=== PATIENT | female | born 1995 | race Two or more races ===

== ENCOUNTER 2024-10-10 22:20 | Inpatient (IN) | payer MEDICAID, SELFPAY ==
[2024-10-10 22:22] VITALS: BMI 29.0
[2024-10-10 22:59] VITALS: BP 114/75; PULSE 81; RESP 20; TEMP 36.8; O2SAT 100
--- NOTE | 2024-10-10 23:13 | XR_ITS ---
Examination: CT abdomen and pelvis without contrast. Coronal 3-D reconstructions. Sagittal 2-D reconstructions. Date and time of exam:October 11, 2024 0027 hrs. Comparison December 08, 2019 Indications: Abdominal pain beginning 2 weeks ago CTDI: vol (mGy): 10.1 DLP: (mGycm): 508 Technique: Axial images of the abdomen have been obtained, 3 mm slice thickness Intravenous contrast material has not been administered. Low dose protocols were performed. One or more of the following dose reduction techniques were used; automated exposure control, adjustment of the mA and/or KV according to patient size, use of iterative reconstruction technique. Findings: No focal liver or splenic lesions Mildly hyperdense gallbladder No pancreatic mass No renal or ureteral calculi Aorta normal size No bowel obstruction Tiny fat-containing umbilical hernia Normal appendix No diverticulitis No pelvic mass Contrast in the urinary bladder The osseous structures are intact Impression: No peripancreatic edema Normal appendix No bowel obstruction diverticulitis or free air
--- NOTE | 2024-10-10 23:14 | PD.EDRME ---
Rapid Medical Screening Exam RME Arrival date/time: 10/10/24 22:20 29-year-old female past medical history of Crohn's presents emergency department complaining of diffuse abdominal pain with nausea. Chief Complaint: Abdominal Pain Time Seen by Provider: 10/10/24 22:30 Vital signs: Vital Signs Temperature 98.3 F 10/10/24 22:59 Pulse Rate 81 10/10/24 22:59 Respiratory Rate 20 10/10/24 22:59 Blood Pressure 114/75 10/10/24 22:59 Pulse Oximetry (%) 100 10/10/24 22:59 Oxygen Delivery Method Room Air 10/10/24 22:59 Vital signs reviewed by provider: Yes
[2024-10-10 23:32] LABS: Basophils # (Auto) 0.1 Thou/mm3 (0.0-0.2); Basophils % (Auto) 1 % (0-2.5); Eosinophils # (Auto) 0.2 Thou/mm3 (0.0-0.5); Eosinophils % (Auto) 2 % (0-10); Hematocrit 36.6 % (36.0-46.0); Hemoglobin 12.8 g/dL (12.0-16.0); Immature Granulocytes % (Auto) 0 % (0-0); Immature Granulocytes Auto 0.02 Thou/mm3 (0.00-0.00); Lymphocytes # (Auto) 1.3 Thou/mm3 (1.0-4.8); Lymphocytes % (Auto) 15 % (10-50); Mean Corpuscular Volume 86 fL (80-100); Monocytes # (Auto) 0.8 Thou/mm3 (0.0-0.8); Monocytes % (Auto) 9 % (0-12); Neutrophils # (Auto) 6.4 Thou/mm3 (1.8-7.7); Neutrophils % (Auto) 73 % (37-80); Nucleated Red Blood Cell % 0 /100 WBC (0); Platelet Count 189 Thou/mm3 (140-440); RDW Standard Deviation 38.5 fL (36.4-46.3); Red Blood Count 4.26 Miln/mm3 (4.00-5.20); White Blood Count 8.8 Thou/mm3 (3.6-11.0)
[2024-10-10] MEDS: ONDANSETRON ODT 4 MG TABRAP PO (23:40)
[2024-10-10] MEDS: KETOROLAC INJ 60 MG/2 ML VIAL 30 MG IM (23:41)
[2024-10-10 23:52] LABS: Collection Type, Urine Clean Catch
[2024-10-10 23:55] LABS: HCG,Qualitative Serum Negative
[2024-10-10 23:58] LABS: Alanine Aminotransferase 14 U/L (10-49); Albumin, Serum 4.6 gm/dL (3.5-5.0); Albumin/Globulin Ratio 1.6 (1.2-2.2); Alkaline Phosphatase 63 U/L (46-116); Anion Gap 9 (7-16); Aspartate Amino Transferase 16 U/L (0-34); BUN/Creatinine Ratio 16 Ratio (12-20); Bilirubin,Total 0.3 mg/dL (0.3-1.2); Blood Urea Nitrogen 13 mg/dL (9-23); Calcium 9.9 mg/dL (8.3-10.6); Calcium (Corrected) 9.9 mg/dL (8.5-10.1); Carbon Dioxide 25.6 mMol/L (20.0-31.0); Chloride 105 mMol/L (98-107); Creatinine (Component) 0.8 mg/dL (0.6-1.3); Globulin 2.8 gm/dL (2.3-3.5); Glucose 103 mg/dL (74-106); Osmolality,Calculated 279 (275-295); Potassium 4.1 mMol/L (3.4-5.1); Sodium 140 mMol/L (136-145); Total Protein 7.4 gm/dL (5.7-8.2); eGFR > 60 See Note
[2024-10-11] VITALS (9 sets, daily range): BP systolic 107–128; BP diastolic 59–82; PULSE 72–103; RESP 15–100; TEMP 36.3–36.7; O2SAT 97–100; BMI 30.4
[2024-10-11 00:04] LABS: Bilirubin,Urine Negative (Negative); Blood,Urine Trace (Negative); Clarity,Urine Clear (Clear/Hazy); Color,Urine Colorless (Lt Yel-Yel); Culture Indicated,Urine Not Indicated; Glucose, Urine Negative (Negative); Ketones,Urine Negative (Negative); Leukocyte Esterase,Urine Negative (Negative); Nitrite,Urine Negative (Negative); PH,Urine 5.5 (5.0-7.0); Protein,Urine Negative (Neg - Trace); RBC,Urine < 1 /hpf (0-3); Squamous Epithelial Cell,Urine < 1 /hpf (0-5); Urobilinogen,Urine Negative mg/dL (0.0-1.0); WBC,Urine < 1 /hpf (0-5)
[2024-10-11 00:04] LABS: Lipase 2550 U/L (12-53)
[2024-10-11 00:27] LABS: Amphetamine/Methamp Scrn,U Negative (Negative); Barbiturate Screen,Urine Negative (Negative); Benzodiazepines Screen,Urine Negative (Negative); Benzoylecgonine Screen, Ur Negative (Negative); Fentanyl Screen,Urine Negative (Negative); Opiate Screen,Urine Negative (Negative); THC Screen,Urine Negative (Negative)
[2024-10-11] MEDS: SODIUM CHLORIDE 0.9% 1000 ML 1,000 ML 999 ML IV (00:33)
--- NOTE | 2024-10-11 01:43 | PRELIM_ITS ---
CT scan of the abdomen and pelvis without intravenous contrast (axial sections with sagittal and coronal and 3D reformats) October 11, 2024 at 0047 hours Clinical History: Diffuse abdominal pain. Comparison: None. Findings: Dependent hyperdensity is identified within the gallbladder, which may represent sludge. Contrast is seen in the kidneys, ureters and urinary bladder, likely from a prior contrast study. Note is made of Mariangel's lobe of the liver. The pancreas, spleen and adrenals are unremarkable on this noncontrast study. No evidence of bowel obstruction. The appendix is within normal limits (images [id number]). A moderate amount of fecal material is present in the colon. There is no mesenteric or retroperitoneal adenopathy. The urinary bladder is unremarkable. The uterus and adnexa are unremarkable. There is no free fluid or free air. The aorta and inferior vena cava are normal in caliber. The osseous structures are unremarkable. The lung bases are clear. Please note that evaluation of soft tissue/vascular structures and bowel loops is limited due to absence of IV and oral contrast. Impression: 1. No evidence of acute pancreatitis. 2. Possible gallbladder sludge. Suggest further evaluation with sonography, if clinically indicated. 3. Moderate amount of fecal material in the colon, compatible with constipation. 4. No evidence of bowel obstruction. 5. Other findings as described above. Suggest clinical correlation and follow up accordingly. Report Electronically Signed By: Scotty Layne 10/11/2024 1:42:15 AM [EST]
--- NOTE | 2024-10-11 02:25 | EKG_ITS ---
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
--- NOTE | 2024-10-11 02:25 | PD.EDABDPN ---
ED Abdominal Pain RME/HPI General Chief Complaint: Abdominal Pain Stated complaint: UPPER ABDOMINAL PAIN Time seen by provider: 10/10/24 22:30 Arrival date/time: 10/10/24 22:20 29-year-old female past medical history of Crohn's presents emergency department complaining of diffuse abdominal pain with nausea. Patient reports pain 7 out of 10. Patient reports pain has been ongoing for 2 weeks. Patient reports is occasional drinker with last alcohol intake on Thursday reports it was 1 beer. Patient denies any fever, chills, or any other associated symptom. Source: patient Mode of arrival: ambulatory Limitations: no limitations RME / HPI RME / HPI narrative: 10/10/24 22:20 29-year-old female past medical history of Crohn's presents emergency department complaining of diffuse abdominal pain with nausea. Related Data Home Medications ?Medication ?Instructions ?Recorded ?Confirmed vit no.95-ferrous 1 tab PO QDAY 12/13/18 09/12/22 fumarate 28 mg-folic acid 800 mcg tablet () Previous Rx's ?Medication ?Instructions ?Recorded ibuprofen 600 mg tablet 600 mg PO Q8H PRN pain #14 tabs 02/06/24 Allergies Allergy/AdvReac Type Severity Reaction Status Date / Time etonogestrel (From Nexplanon) Allergy Headache Verified 10/10/24 22:21 latex Allergy Verified 10/10/24 22:21 shrimp Allergy Verified 10/10/24 22:21 Review of Systems Review of Systems Systems Reviewed: All systems reviewed, normal except as documented Constitutional Constitutional: Denies body ache(s), Denies chills and Denies fever(s) Eyes Eyes: Denies change in vision ENT Ears, Nose, Mouth, and Throat: Denies disequilibrium, Denies dizziness, Denies sore throat and Denies vertigo Cardiovascular Cardiovascular: Denies chest pain and Denies dyspnea Respiratory Respiratory: Denies chest congestion, Denies cough and Denies dyspnea Gastrointestinal Gastrointestinal: Reports abdominal pain, Reports nausea and Denies vomiting Genitourinary Genitourinary: Denies abnormal vaginal bleeding Musculoskeletal Musculoskeletal: Denies abnormal gait and Denies arthralgias Integumentary/Breasts Skin/Breast: Denies erythema, Denies rash and Denies wounds Neurologic Neurologic: Denies abnormal gait, Denies disequilibrium, Denies dizziness and Denies vertigo Past Medical History Past Medical History NEUROLOGIC: Positive Neurological Disorders and Migraine CARDIAC: Positive Cardiac Disorders and Cardiac Arrhythmia; Negative Congestive Heart Failure RESPIRATORY: Negative Chronic Obstructive Pulmonary Disease (COPD) GASTROINTESTINAL: Positive Gastrointestinal Disorders, Irritable Bowel, Crohn's Disease and Obesity; Negative Hepatitis or Colorectal Cancer GENITOURINARY: Positive Genitourinary Disorders; Negative Renal Disease or Prostate Cancer REPRODUCTIVE: Positive Previous Pregnancies; Negative Breast Cancer or Testicular Cancer MUSCULOSKELETAL: Negative Musculoskeletal Disorders or Bone Cancer ENDOCRINE: Negative Endocrine Disorders, Diabetes Mellitus Type 1 or Diabetes Mellitus Type 2 HEMATOLOGIC: Positive Blood Disorders and Anemia PSYCHO/SOCIAL: Positive Anxiety and Depression OTHER HISTORY: Negative Hospitalization, Autoimmune Disease, Down Syndrome, Developmental Delay, Shingles, Falls, Blood Transfusions, Blood Transfusion Reaction, Anesthesia Reactions, Organ Transplant, Chemotherapy, Radiation Therapy, Hyperbaric Therapy, MRSA, VRSA, Vancomycin-Resistant Enterococci, Human Immunodeficiency Virus (HIV), Chicken Pox, Measles, Mumps, Rubella (French Measles), Pertussis, Clostridium Difficile, Cancer, Breast Cancer, Cervical Cancer, Colorectal Cancer, Lung Cancer, Ovarian Cancer, Prostate Cancer or Testicular Cancer Family History FAMILY HISTORY: Negative Family Psychiatric Problems, Family Respiratory Disorders, Family Cardiac Disorders, Family Gastrointestinal Problems, Family Cancer, Family Surgery or Family Anesthesia Reaction Surgical History SURGICAL: Negative Abdominal Surgery, Nephrectomy, Joint Replacement, Section or Organ Transplant Social History SMOKING STATUS: Never smoker SECOND HAND EXPOSURE: No SUBSTANCE USE: does not use ED Exam General Limitations: Present no limitations General appearance: Present alert and in no apparent distress Head Head exam: Present atraumatic Eye Eye exam: Present normal appearance, PERRL and EOMI ENT ENT exam: Present normal exam, normal oropharynx and mucous membranes moist Neck Neck exam: Present normal inspection, full ROM and trachea midline Chest Chest inspection: Present normal inspection and symmetric chest wall rise Respiratory Respiratory exam: Present normal lung sounds bilaterally Cardiovascular Cardiovascular exam: Present regular rate, normal rhythm and normal heart sounds Abdominal Exam Abdominal exam: Present soft, tenderness and normal bowel sounds; Absent Benites's sign Abdominal tenderness: Present LUQ Extremities Exam Extremities exam: Present normal inspection and full ROM Back Exam Back exam: Present normal inspection and full ROM Neurological Exam Neurological exam: Present alert, oriented X3 and CN II-XII intact Psychiatric Psychiatric exam: Present normal affect and normal mood Skin Skin exam: Present warm, dry, intact and normal color Course Quality Measures none Orders Category Date Time Status Admit to Inpatient Status Routine Admission 02/25/25 02:16 Active Patient Condition Routine Admission 10/11/24 02:15 Ordered Activity as Tolerated Routine Care 10/11/24 02:17 Ordered Aspiration precautions NOW Care 10/11/24 02:17 Active Continuous Pulse Oximetry NOW Care 10/11/24 02:15 Active Insert IV NOW Care 10/11/24 00:08 Active Intake and Output Routine Care 10/11/24 02:16 Ordered Miscellaneous Nursing Order NOW Care 10/11/24 02:15 Active NPO NOW Care 10/11/24 02:17 Active Notify provider NEEDED Care 10/11/24 02:15 Active Diet NPO (NOW) Diet 10/11/24 02:[address] abdomen pelvis wo con Stat Exams 10/10/24 23:13 Taken CBC Stat Lab 10/10/24 23:20 Completed CMP [Comprehensive Metabolic Panel] Stat Lab 10/10/24 23:20 Completed Drug Screen,Urine Stat Lab 10/10/24 23:44 Completed HCG,Qualitative Serum Stat Lab 10/10/24 23:20 Completed Lipase Stat Lab 10/10/24 23:20 Completed Urinalysis, C/S if Indicated Stat Lab 10/10/24 23:44 Completed Ketorolac Inj [Toradol Inj] Med 10/10/24 23:13 Discontinued 30 mg IM X1 ONE Ondansetron Odt [Zofran Odt] Med 10/10/24 23:13 Discontinued 4 mg PO X1 ONE Ringers Lactated 1000 ml [Lactated Ringers] 1,000 ml Med 10/11/24 02:15 Discontinued IV 75 mls/hr Sodium Chloride 0.9% 1000 ml [Ns] 1,000 ml Med 10/11/24 00:08 Discontinued IV 999 mls/hr Code Status Routine Oth 10/11/24 02:15 Ordered Oxygen Delivery PRN RT 10/11/24 02:15 Active Vital Signs Vital signs: Vital Signs Temperature 98.3 F 10/10/24 22:59 Pulse Rate 81 10/10/24 22:59 Respiratory Rate 20 10/10/24 22:59 Blood Pressure 114/75 10/10/24 22:59 Pulse Oximetry (%) 100 10/10/24 22:59 Oxygen Delivery Method Room Air 10/10/24 22:59 100% room air within normal limits Abdominal Pain MDM MDM Narrative MDM Narrative:: 29-year-old female past medical history of Crohn's presents emergency department complaining of diffuse abdominal pain with nausea. Patient reports pain 7 out of 10. Patient reports pain has been ongoing for 2 weeks. Patient reports is occasional drinker with last alcohol intake on Thursday reports it was 1 beer. Patient denies any fever, chills, or any other associated symptom. CBC unremarkable for any leukocytosis. CMP unremarkable for other than elevated lipase 2550. Urinalysis was unremarkable. CT abdomen pelvis without impression possible gallbladder sludge with moderate amount of fecal material in the colon no evidence of bowel obstruction. Dr Moreno on-call hospitalist consulted for admission due to acute pancreatitis and agrees to admit patient. Patient stable at time of admission. Patient data External records reviewed:: [facility] previous records Clinical information provided by:: patient Social determinants that could affect healthcare access:: none Patient has the following chronic illnesses:: See chart How is presenting disease/condition affected by chronic disease/condition?: uneffected by Evaluation data The following diagnostics were reviewed and interpreted by me:: lab results and radiology exam(s) Lab and/or radiology exams considered but not ordered:: Ordered Interpretation Summary: Interpreted by me Medications / Prescriptions Medications or Prescriptions considered but not ordered:: Ordered Medication administrations:: Medication Administration History Acetaminophen (Acetaminophen 325 Mg Tablet) 650 mg PO Q6H PRN PRN Reason: Mild Pain (1-3) & Fever >101.5 Stop: 11/10/24 02:17 Hydrocodone Bitart/Acetaminophen (Hydrocodone/Apap 10/325 Tab) 1 tab PO Q4H PRN PRN Reason: PAIN SCALE 4-6 (Moderate Stop: 10/16/24 02:22 Heparin Sodium (Porcine) (Heparin Sod Inj 5000 Unit/Ml Vial) 5,000 unit SC BID KEDAR Stop: 10/25/24 08:59 Hydromorphone HCl (Hydromorphone Inj 2 Mg/Ml Vial) 0.5 mg IVP Q4H PRN PRN Reason: PAIN SCALE 7-10 (Severe Stop: 10/16/24 02:22 Lactated Ringer's (Lactated Ringers) 1,000 mls @ 150 mls/hr IV .Q6H40M ONE Stop: 10/11/24 09:18 Last Admin: 10/11/24 02:43 Dose: 150 mls/hr Documented By: WO Ondansetron HCl (Ondansetron Inj 2 Mg/Ml Inj 2 Ml) 4 mg IV Q6H PRN; Protocol PRN Reason: NAUSEA OR VOMITING Stop: 11/10/24 02:22 Pantoprazole Sodium (Pantoprazole Inj 40 Mg Vial) 40 mg IVP QDAY [facility] Stop: 11/10/24 08:59 Discontinued Medications Sodium Chloride (Ns) 1,000 mls @ 999 mls/hr IV .Q1H1M ONE Stop: 10/11/24 01:08 Last Infusion: 10/11/24 02:14 Dose: Infused Documented By: Admin: 10/11/24 00:33 Dose: 999 mls/hr Documented By: REFUGIO Lactated Ringer's (Lactated Ringers) 1,000 mls @ 75 mls/hr IV .[id number] [facility] Stop: 10/11/24 15:34 Last Admin: 10/11/24 02:37 Dose: Not Given Documented By: ODALYS Non-Admin Reason: Discontinued Lactated Ringer's (Lactated Ringers) 1,000 mls @ 100 mls/hr IV .Q10H [facility] Stop: 10/11/24 12:28 Last Admin: 10/11/24 02:45 Dose: Not Given Documented By: REFUGIO Non-Admin Reason: Discontinued Ketorolac Tromethamine (Ketorolac Inj 60 Mg/2 Ml Vial) 30 mg IM X1 ONE Stop: 10/10/24 23:14 Last Admin: 10/10/24 23:41 Dose: 30 mg Documented By: ANGELO Morphine Sulfate (Morphine Sulf Inj 10 Mg/Ml Vial) 2 mg IVP X1 ONE Stop: 10/11/24 02:25 Last Admin: 10/11/24 02:29 Dose: 2 mg Documented By: REFUGIO Ondansetron HCl (Ondansetron Odt 4 Mg Tabrap) 4 mg PO X1 ONE; Protocol Stop: 10/10/24 23:14 Last Admin: 10/10/24 23:40 Dose: 4 mg Documented By: ANGELO Given Consultations Consultation(s) initiated? (list below): Yes Consultation #1 (Physician, Specialty, Details): Dr. Moreno Diagnosis Differential diagnosis abdominal pain: abdominal pain, acute appendicitis, calculus of kidney, constipation, diverticulitis, endometriosis, gastroenteritis, pancreatitis and small bowel obstruction Most likely diagnosis given after review of the tests above:: Acute pancreatitis Admission Indicated Admission indicated?: indicated Admission Request Was there a request for admission?: Yes Admission Attestation Admission request attestation: Discussed case with [] from Hospitalist service regarding admission. Discussed patients ED course, exam findings, labs, and radiology results. The Hospitalist [agrees,declines] to accept the patient for admission. Disposition Plan Disposition Plan: Admit Discharge Plan Plan Patient Disposition: Admit Acute Care w/in Hospital Disposition Comment: Stable Problem List Clinical Impression: Acute pancreatitis PA/[employer] Supervising Physician BOGDAN/WILLIAN Supervising Physician: Dr. Sawyer
[2024-10-11] MEDS: MORPHINE SULF INJ 10 MG/ML VIAL 2 MG IVP (02:29)
--- NOTE | 2024-10-11 02:31 | XR_ITS ---
Examination: Abdomen sonogram, Limited Date and time of exam: October 11, 2024 0313 hrs. Indications: Epigastric pain beginning 3 hours ago Technique: Real-time haq scale transabdominal sonographic images of the upper abdomen obtained. Findings: Normal gallbladder Normal common bile duct 0.4 cm Pancreatic head 2.6 cm Liver 17.5 cm smooth contour no focal liver lesions Normal hepatopedal portal venous flow Patent IVC Impression: Normal gallbladder Normal common bile duct Mild hepatomegaly no focal liver lesions
--- NOTE | 2024-10-11 02:36 | PD.RESHP ---
Documentation for date of: 10/11/24 HPI History of Present Illness Chief complaint: Abdominal pain History of present illness: Ms. Norris is a 29-year-old female with past medical history of Crohn's disease and hemochromatosis who presented to [facility] emergency department from home on 10/11/2024 with a chief complaint of abdominal pain. Patient complains of left-sided abdominal pain radiating to the back which started about 2 weeks ago, has been worsening since, associated with nausea and chills, reports pain is currently 8/10 in intensity, reports is radiating to left side of lower chest at times. Patient also complains of blood in stool, attributed to Crohn's which was diagnosed in 2020, reports following GI at [facility] for management, reports using dicyclomine as needed for Crohn's and recently had a CT scan done for which she is pending appointment for discussion of results. Patient also complains of blood in urine and is following urologist and complains of significantly increased bleeding during menstruation and is following [employer] outpatient. Patient denies any alcohol use, denies starting any new medications recently. Patient otherwise denies any shortness of breath, fever and headache. ED Course: ED Vitals: On presentation BP 114/75, pulse 81, respiratory rate 20, temp 98.3, O2 sat 100 on room air ED Labs: ED labs significant for lipase 2550 otherwise labs unremarkable ED Imaging:CT abdomen pelvis preliminary report in emergency department shows no evidence of acute pancreatitis, possible gallbladder sludge, moderate amount of fecal matter in colon compatible with constipation ED Treatment: Patient was given 1 L NS bolus in ED, Zofran 4 mg p.o. x 1, Toradol 30 mg IM x 1 and morphine 2 mg IVP x 1 in ED Review of Systems Review of Systems Narrative Review of Systems: ROS: -CONSTITUTIONAL: Denies weight loss, fever and positive for chills. -HEENT: Denies changes in vision and hearing. -RESPIRATORY: Denies SOB and cough. -CV: Denies palpitations and Chest Pain. -GI: Positive for abdominal pain, nausea, denies vomiting,constipation and diarrhea. -: Denies dysuria and urinary frequency. -MSK: Denies myalgia and joint pain. -SKIN: Denies rash and pruritus. -NEUROLOGICAL: Denies headache and syncope. -PSYCHIATRIC: Denies recent changes in mood. Denies anxiety and depression. Past Medical History Past Medical History Comments PMH COMMENT: PMH: Positive for Crohn's disease and hemochromatosis PSHx: Colonoscopy about 6 months ago Allergies: Etonogestrel, latex, shrimp Social history: -Smoking: Denies -Alcohol Use: Occasional alcohol use, reports drinking about 1-2 beers in a month -Illicit Drug Use: Denies Family History: Positive family history for diabetes in both parents Exam Vital Signs Temp Pulse Resp BP Pulse Ox O2 Del Method 98.0 F 73 15 128/75 97 Room Air 10/11/24 00:21 10/11/24 00:21 10/11/24 00:21 10/11/24 00:21 10/11/24 00:21 10/11/24 00:21 Narrative Exam Physical Exam General: Awake and in no acute distress. Conversational and non-toxic appearing. HEENT: Normocephalic, atraumatic, mucous membranes moist. Heart: Regular rate and rhythm, no murmurs. Lungs: Clear to auscultation with no wheezing or crackles. Abdomen: Soft, nondistended, positive for tenderness in left upper and left lower quadrant, minimal tenderness in right upper quadrant, positive bowel sounds. Neurologic: Alert and oriented x3, no gross neurological deficit, and patient able to move all 4 extremities. Extremities: No edema. Skin: No rash or ecchymoses. Results: Labs 10/10/24 23:20 10/10/24 23:20 Labs: Short CBC 10/10/24 Range/Units 23:20 WBC 8.8 (3.6-11.0) Thou/mm3 Hgb 12.8 (12.0-16.0) g/dL Hct 36.6 (36.0-46.0) % Plt Count 189 (140-440) Thou/mm3 BMP 10/10/24 23:20 Sodium 140 Potassium 4.1 Chloride 105 Carbon Dioxide 25.6 BUN 13 Creatinine 0.8 Glucose 103 Calcium 9.9 Liver Function 10/10/24 Range/Units 23:20 Total Bilirubin 0.3 (0.3-1.2) mg/dL AST 16 (0-34) U/L ALT 14 (10-49) U/L Alkaline Phosphatase 63 (46-116) U/L Albumin 4.6 (3.5-5.0) gm/dL Urine 10/10/24 Range/Units 23:44 Urine Color Colorless A (Lt Yel-Yel) Urine Clarity Clear (Clear/Hazy) Urine pH 5.5 (5.0-7.0) Ur Specific [place] 1.010 (1.001-1.035) Urine Protein Negative (Neg - Trace) Urine Glucose (UA) Negative (Negative) Quality Measures Quality Measures VTE prophylaxis Medications Home Medications and Allergies Home Medications ?Medication ?Instructions ?Recorded ?Confirmed ?Type vit no.95-ferrous 1 tab PO QDAY 12/13/18 09/12/22 History fumarate 28 mg-folic acid 800 mcg tablet () Allergies Allergy/AdvReac Type Severity Reaction Status Date / Time etonogestrel (From Nexplanon) Allergy Headache Verified 10/10/24 22:21 latex Allergy Verified 10/10/24 22:21 shrimp Allergy Verified 10/10/24 22:21 Visit Medications Acetaminophen (Acetaminophen 325 Mg Tablet) 650 mg PO Q6H PRN PRN Reason: Mild Pain (1-3) & Fever >101.5 Stop: 11/10/24 02:17 Hydrocodone Bitart/Acetaminophen (Hydrocodone/Apap 10/325 Tab) 1 tab PO Q4H PRN PRN Reason: PAIN SCALE 4-6 (Moderate Stop: 10/16/24 02:22 Heparin Sodium (Porcine) (Heparin Sod Inj 5000 Unit/Ml Vial) 5,000 unit SC BID [facility] Stop: 10/25/24 08:59 Hydromorphone HCl (Hydromorphone Inj 2 Mg/Ml Vial) 0.5 mg IVP Q4H PRN PRN Reason: PAIN SCALE 7-10 (Severe Stop: 10/16/24 02:22 Lactated Ringer's (Lactated Ringers) 1,000 mls @ 100 mls/hr IV .Q10H [facility] Stop: 10/11/24 12:28 Ondansetron HCl (Ondansetron Inj 2 Mg/Ml Inj 2 Ml) 4 mg IV Q6H PRN; Protocol PRN Reason: NAUSEA OR VOMITING Stop: 11/10/24 02:22 Pantoprazole Sodium (Pantoprazole Inj 40 Mg Vial) 40 mg IVP QDAY [facility] Stop: 11/10/24 08:59 Discontinued Medications Sodium Chloride (Ns) 1,000 mls @ 999 mls/hr IV .Q1H1M ONE Stop: 10/11/24 01:08 Last Infusion: 10/11/24 02:14 Dose: Infused Lactated Ringer's (Lactated Ringers) 1,000 mls @ 75 mls/hr IV .[id number] KEDAR Stop: 10/11/24 15:34 Ketorolac Tromethamine (Ketorolac Inj 60 Mg/2 Ml Vial) 30 mg IM X1 ONE Stop: 10/10/24 23:14 Last Admin: 10/10/24 23:41 Dose: 30 mg Morphine Sulfate (Morphine Sulf Inj 10 Mg/Ml Vial) 2 mg IVP X1 ONE Stop: 10/11/24 02:25 Last Admin: 10/11/24 02:29 Dose: 2 mg Ondansetron HCl (Ondansetron Odt 4 Mg Tabrap) 4 mg PO X1 ONE; Protocol Stop: 10/10/24 23:14 Last Admin: 10/10/24 23:40 Dose: 4 mg Assessment & Plan Plan Assessment and Plan: Summary: Ms. Norris is a 29-year-old female with past medical history of Crohn's disease and hemochromatosis who presented to [facility] emergency department from home on 10/11/2024 with a chief complaint of abdominal pain. Patient admitted for further management of acute pancreatitis. #Acute pancreatitis #Gallbladder sludge #Crohn's disease Patient presented with abdominal pain severe, 8/10 radiating to the back for about 2 weeks, associated with nausea and chills, patient's lipase 2550, CT abdomen pelvis preliminary report in emergency department shows no evidence of acute pancreatitis, possible gallbladder sludge, moderate amount of fecal matter in colon compatible with constipation. Patient reports history of Crohn's disease, reports blood in stool for about 3 weeks, follows [facility] gastroenterology, not on any medications for management of Crohn's currently. Reports last colonoscopy was about 6 months ago. BISAP score 0 less than 1% risk of mortality Plan: -Intravenous Ringer lactate 150 cc/h -Pain management with Tylenol, [place], Dilaudid as needed -Zofran as needed for nausea/vomiting -N.p.o., consider advancing diet later if pain well-controlled -Ordered ultrasound gallbladder -Patient does not seem to have acute flare of Crohn's, will monitor -IV Protonix #Hemochromatosis Patient reports that her genetic marker was positive for hemochromatosis, denies any family history DVT prophylaxis: Heparin every 12 hours GI prophylaxis: IV Protonix Diet: N.p.o. Lines: Peripheral IV Code status: Full code Case discussed with Attending Dr. Moreno. Song Jarrett PGY1 Disclaimer: This note was dictated by speech recognition. Minor errors in cane flume watcher may be present due to voice recognition software. Attending Provider Attestation/Addendum I attest that I was physically present for the evaluation, physical examination, lab and imaging review of the patient with the residents. I discussed the case with the residents and agree with the findings and plans of care as documented above. Patient is a 29 years old female with past medical history of Crohn's disease who presented to the ED with complaint of abdominal pain. Patient has been having abdominal pain along with nausea for last couple weeks, the pain is severe and radiates towards her back. She also has chills but denied any fever. 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 Patient is also having frequent menstrual bleeding and also had urology workup for blood in her urine. She also had tested for hemochromatosis and was told she is positive. In the ED, her vitals are within normal limits except for mild tachycardia. Lab results showed lipase of 2550. CT abdomen/pelvis was done, preliminary report shows possible gallbladder discharge and fecal matter in colon but no evidence of pancreatitis. Calcium levels are within normal limits. Patient is stated that she only drinks 1-2 beers every month and denied any binge drinking recently. We will admit patient for management of acute pancreatitis with IV hydration and analgesics. We will obtain gallbladder ultrasound, lipid panel. We will wait for final reading on CT scan abdomen/pelvis. Plan to start diet once her nausea improves. Lashonda Moreno MD
[2024-10-11] MEDS: RINGERS LACTATED 1000 ML 1,000 ML 150 ML IV (02:43)
--- NOTE | 2024-10-11 05:25 | PRELIM_ITS ---
Gallbladder ultrasound. October 11, 2024 0313 hours Clinical history: Pancreatitis. Correlated with the prior same day CT study. Findings: The visualized liver is normal in echogenicity without mass or ductal dilatation. Gallbladder sludge is noted. No gallbladder wall thickening or pericholecystic fluid is identified. Sonographic Benites sign is negative as per the technologist's note. The common duct is normal in caliber at 4 mm. No free fluid is demonstrated on the submitted images. There visualized pancreas is bulky and demonstrates mild inhomogenous echogenicity. The IVC and main portal vein are patent. Impression: Bulky pancreas with mild inhomogenous echogenicity, mild/early pancreatitis cannot be excluded. Recommend clinical and laboratory correlation. Cholelithiasis without evidence of acute cholecystitis. Report Electronically Signed By: Idalmis Turner 10/11/2024 5:25:31 AM [EST]
[2024-10-11 05:34] LABS: Basophils % (Auto) 1 % (0-2.5); Eosinophils # (Auto) 0.1 Thou/mm3 (0.0-0.5); Eosinophils % (Auto) 2 % (0-10); Hematocrit 33.5 % (36.0-46.0); Hemoglobin 11.6 g/dL (12.0-16.0); Immature Granulocytes % (Auto) 0 % (0-0); Immature Granulocytes Auto 0.01 Thou/mm3 (0.00-0.00); Lymphocytes # (Auto) 1.6 Thou/mm3 (1.0-4.8); Lymphocytes % (Auto) 29 % (10-50); Mean Corpuscular HGB Conc 34.6 g/dl (31.0-37.0); Mean Corpuscular Hemoglobin 30.4 pg (25.0-35.0); Mean Corpuscular Volume 88 fL (80-100); Monocytes # (Auto) 0.6 Thou/mm3 (0.0-0.8); Monocytes % (Auto) 11 % (0-12); Neutrophils # (Auto) 3.2 Thou/mm3 (1.8-7.7); Neutrophils % (Auto) 58 % (37-80); Nucleated Red Blood Cell % 0 /100 WBC (0); Platelet Count 179 Thou/mm3 (140-440); Red Blood Count 3.82 Miln/mm3 (4.00-5.20); White Blood Count 5.6 Thou/mm3 (3.6-11.0)
[2024-10-11 05:53] LABS: Glucose Estimated Average 97 mg/dL (80-131)
[2024-10-11 07:15] LABS: Ferritin 10 ng/mL (7.3-270.7); Iron 51 mcg/dL (50-170); Percent Iron Saturation 18 % (20-55); Total Iron Binding Capacity 272 mcg/dL (250-425); Unsaturated Iron Binding 221 (225-295)
[2024-10-11 07:21] LABS: Alanine Aminotransferase 10 U/L (10-49); Albumin, Serum 3.9 gm/dL (3.5-5.0); Albumin/Globulin Ratio 1.7 (1.2-2.2); Alkaline Phosphatase 48 U/L (46-116); Anion Gap 7 (7-16); Aspartate Amino Transferase 12 U/L (0-34); BUN/Creatinine Ratio 14 Ratio (12-20); Bilirubin,Total 0.5 mg/dL (0.3-1.2); Blood Urea Nitrogen 10 mg/dL (9-23); Calcium 8.8 mg/dL (8.3-10.6); Calcium (Corrected) 8.9 mg/dL (8.5-10.1); Carbon Dioxide 27.3 mMol/L (20.0-31.0); Cardiac Risk Estimate 1.9 RATIO (3.7-5.6); Chloride 107 mMol/L (98-107); Cholesterol 103 mg/dL (132-200); Creatinine (Component) 0.7 mg/dL (0.6-1.3); Estimated Creatinine Clearance 120.7 mL/min (>60); Globulin 2.3 gm/dL (2.3-3.5); Glucose 103 mg/dL (74-106); HDL Cholesterol 53 mg/dL (40-60); LDL Cholesterol,Calculated 40 mg/dL (0-130); Osmolality,Calculated 280 (275-295); Potassium 3.9 mMol/L (3.4-5.1); Sodium 141 mMol/L (136-145); Total Protein 6.2 gm/dL (5.7-8.2); Triglycerides 51 mg/dL (30-150); eGFR > 60 See Note
[2024-10-11] MEDS: RINGERS LACTATED 1000 ML 1,000 ML 999 ML IV (08:03)
[2024-10-11] MEDS: PANTOPRAZOLE INJ 40 MG VIAL IVP (08:08)
[2024-10-11 08:12] LABS: Sed Rate (ESR) 5 mm/hr (0-20)
[2024-10-11 08:13] LABS: Amylase 594 U/L (30-118); C-Reactive Protein < 0.4 mg/dL (0.0-0.9)
[2024-10-11] MEDS: RINGERS LACTATED 1000 ML 1,000 ML 250 ML IV ×4 (08:45→20:29)
[2024-10-11] MEDS: HYDROcodone/APAP 10/325 TAB PO ×2 (10:28→17:32)
--- NOTE | 2024-10-11 15:11 | ESPR_ITS ---
<Statement entered by Paul Scott MD - 10/11/24 20:08> Senior Resident Attestation: I supervised/discussed management plan with pharmacy intern physician Dr. Leyva, and was involved in the care of this patient. I personally saw and examined the patient and discussed the assessment and plan with the entire medicine team, including my attending. I agree with the assessment and plan as documented. Patient's care was discussed with attending physician, Dr. Hamilton. Paul Scott MD PGY-2. Documentation for date of: 10/11/24 Subjective Subjective Interval history: Patient examined at bedside today. No acute overnight events. Patient reports that she has never had an IBD flareup or has been hospitalized for it. She says she took mesalamine a couple years ago but stopped it due to constipation and does not take any medicines for IBD at this point. She says she has a diagnosis of Crohn's, but has been told she has had ulcerative colitis before. Says colonoscopy 6 months ago was normal. Says she works in the [employer]. She also says that she had an appointment with her GI in [place] at [facility] for CT scan. She says she can go to the ED there due to not being in severe pain. Says she only takes medicine when she is in severe pain with her IBD which includes dicyclomine. Does not take steroids for IBD either. No other complaints at this time Exam Vital Signs Temp Pulse Resp BP Pulse Ox O2 Del Method 97.6 F 87 17 115/78 100 Room Air 10/11/24 12:00 10/11/24 12:00 10/11/24 12:00 10/11/24 12:00 10/11/24 12:10/11/24 12:00 Narrative Exam General: AAOx3, NAD, pleasant appearing, cooperative HEENT: Moist mucous membranes, conjunctiva clear, EOMI, PERRLA, Cardiovascular: S1, S2, radial pulses +2 bilat, RRR Pulmonary: CTAB bilat no cough, no wheezing GI: Some tenderness to palpitation in both lower quadrants, no guarding, rigidity, rebound tenderness or distension Extremities: No presence of trace or pitting edema in lower extremities bilaterally, dorsalis pedis pulses +2 bilaterally Neuro: AAOx3, no focal motor or sensory deficits in the UE or LE bilat Psych: Good judgement, thought and behavior Objective Labs 10/13/24 05:23 10/13/24 05:23 Labs: Laboratory Results - last 24 hr 10/10/24 10/10/24 10/11/24 23:20 23:44 04:36 WBC 8.8 5.6 RBC 4.26 3.82 L Hgb 12.8 11.6 L Hct 36.6 33.5 L MCV 86 88 MCH 30.0 30.4 MCHC 35.0 34.6 RDW Std Deviation 38.5 39.0 Plt Count 189 179 Neut % (Auto) 73 58 Lymph % (Auto) 15 29 [place] % (Auto) 9 11 Eos % (Auto) 2 2 Baso % (Auto) 1 1 Neut # (Auto) 6.4 3.2 Lymph # (Auto) 1.3 1.6 [place] # (Auto) 0.8 0.6 Eos # (Auto) 0.2 0.1 Baso # (Auto) 0.1 0.0 Immature Gran # (Auto) 0.02 H 0.01 H Absolute Nucleated RBC 0.00 0.00 Immature Gran % 0 0 Nucleated RBC % 0 0 ESR 5 Sodium 140 141 Potassium 4.1 3.9 Chloride 105 107 Carbon Dioxide 25.6 27.3 Anion Gap 9 7 BUN 13 10 Creatinine 0.8 0.7 Estim Creat Clear Calc 103.0 120.7 eGFR > 60 > 60 BUN/Creatinine Ratio 16 14 Glucose [address] Glu mg/dL 97 Hemoglobin A1c 5.0 Calculated Osmolality 279 280 Calcium 9.9 8.8 Corrected Calcium 9.9 8.9 Magnesium 2.0 Iron 51 TIBC 272 Iron Saturation 18 L Unsat Iron Binding 221 L Ferritin 10 Total Bilirubin 0.3 0.5 AST 16 12 ALT 14 10 Alkaline Phosphatase 63 48 D C-Reactive Prot, Quant < 0.4 Total Protein 7.4 6.2 Albumin 4.6 3.9 D Globulin 2.8 2.3 Albumin/Globulin Ratio 1.6 1.7 Triglycerides 51 Cholesterol 103 L LDL Cholesterol, Calc 40 HDL Cholesterol 53 Cholesterol/HDL Ratio 1.9 L Amylase 594 H* Lipase 2550 H* HCG, Qual Negative Ur Collection Type Clean Catch Urine Color Colorless A Urine Clarity Clear Urine pH 5.5 Ur Specific [place] 1.010 Urine Protein Negative Urine Glucose (UA) Negative Urine Ketones Negative Urine Blood Trace Urine Nitrite Negative Urine Bilirubin Negative Urine Urobilinogen (Auto) Negative Ur Leukocyte Esterase Negative Urine RBC < 1 Urine WBC < 1 Ur Squamous Epith Cells < 1 Urine Bacteria None Ur Culture Indicated? Not Indicated Urine Opiates Screen Negative Urine Fentanyl Screen Negative Ur Barbiturates Screen Negative U Amphetamin/Meth Scrn Negative U Benzodiazepines Scrn Negative U Cocaine Metab Screen Negative U Marijuana (THC) Screen Negative Quality Measures Quality Measures VTE prophylaxis Assessment & Plan Assessment Current Active Medications: Generic Name Dose Route Start Last Admin Trade Name Freq PRN Reason Stop Dose Admin Acetaminophen 650 mg 10/11/24 07:54 Acetaminophen 325 Mg Tablet PO 11/10/24 02:17 Q6H PRN Mild Pain (1-3) & Fever >99 Hydrocodone Bitart/Acetaminophen 1 tab 10/11/24 02:23 10/11/24 10:28 Hydrocodone/Apap 10/325 Tab PO 10/16/24 02:22 1 tab Q4H PRN Administration PAIN SCALE 4-6 (Moderate Hydromorphone HCl 0.5 mg 10/11/24 02:23 Hydromorphone Inj 2 Mg/Ml Vial IVP 10/16/24 02:22 Q4H PRN PAIN SCALE 7-10 (Severe Lactated Ringer's 1,000 mls @ 250 mls/hr 10/11/24 07:53 10/11/24 14:06 Lactated Ringers IV 11/10/24 07:52 250 mls/hr .Q4H KEDAR Administration Ondansetron HCl 4 mg 10/11/24 02:23 Ondansetron Inj 2 Mg/Ml Inj 2 Ml IV 11/10/24 02:22 Q6H PRN NAUSEA OR VOMITING Protocol Pantoprazole Sodium 40 mg 10/11/24 09:00 10/11/24 08:08 Pantoprazole Inj 40 Mg Vial IVP 11/10/24 08:59 40 mg QDAY KEDAR Administration Plan Assessment: Ms. Norris is a 29-year-old female with past medical history of Crohn's disease who presented to [facility] emergency department from home on 10/11/2024 with a chief complaint of abdominal pain. Patient admitted for further management of acute pancreatitis. #Acute pancreatitis # ? Crohn's disease flare up Patient is not have a white count currently at 5.6, hematocrit [address] findings of pancreatitis, however lipase is over 2500 in addition to classic abdominal pain radiating to the back which would give diagnosis of pancreatitis at this time Patient denies being hospitalized before for IBD, however this may be a cause of her pancreatitis at this time She denies having any heavy alcohol episodes, has no history of gallstones, and her triglycerides are 50 This could be a Crohn's flareup, however will treat for pancreatitis and follow- up GI recs BISAP score 0 less than 1% risk of mortality Plan: -LR 250 cc/h -Pain management with Tylenol, [place], Dilaudid as needed -Zofran as needed for nausea/vomiting -Clear liquid -Follow-up proteinase 3, DALIA, myeloperoxidase -IV Protonix ?GI consulted, appreciate recs #? Hemochromatosis, gene carrier This is been reported, however ferritin within normal limits #Health Maintenance Disposition: MedSurg DVT prophylaxis: Heparin every 12 H GI prophylaxis: Protonix Diet: Clear liquid CODE STATUS: Full code Patient seen and care discussed with my senior resident, Dr. Mckenzie, and my attending physician, Dr. Joy Ford, PGY-1 Attending Provider Attestation/Addendum I have examined the patient, reviewed labs and imaging findings, discussed the case with the resident(s), and reviewed entered orders. I agree with the plan of care as outlined in this note, with these additional summaries/recommendations: Patient seen at bedside. Patient admitted overnight for acute pancreatitis and likely IBD flare. Patient does meet 2 out of 3 diagnostic criteria for acute pancreatitis with elevated lipase and abdominal pain. I suspect patient's symptoms are more likely related to IBD flare rather than pancreatitis. Lipase/amylase can be elevated in 8 to 20% of patients with inflammatory bowel disease. Nonetheless, because of patient's symptoms we will proceed with pancreatitis treatment with IV fluids, pain management, and bowel rest. Okay to give the patient clear liquid diet as tolerated. We will consult gastroenterology for history of Crohn's disease and likely flare. Patient follows at [facility] but would like to transfer her care to our local bike technician. Appreciate GI Edgardo if steroids should be started at this time or if maintenance therapy for IBD. Continue IV fluids. Repeat hematology and chemistry panel in AM. Patient and updated on the plan and in agreement. All questions answered to satisfaction. Dr. Joy MD
--- NOTE | 2024-10-11 21:26 | ESCONSULT_ITS ---
HPI Data of Consult Requesting Physician: Andrea Hamilton MD Primary Care Provider: Josse Murphy MD Consult Narrative Reason for consult: Pain abdomen elevated amylase lipase History of present illness: 29 years old female presented to hospital with severe abdominal pain and discomfort She does have a history of Crohn's disease being followed at [facility] She also hematuria also follow there In the emergency room she had laboratory workup done which showed a WBC count of 5.6 hemoglobin hematocrit of 11.6 and 33.[address] scan of the abdomen pelvis showed no pending pancreatic edema with peripancreatic inflammation Gallbladder ultrasound was normal Patient does drink she had a beer on Thursday cc:: cc: Andrea Hamilton MD Review of Systems Review of Systems Systems Reviewed: All systems reviewed, normal except as documented Past Medical History Surgical History OTHER SURGICAL HX: As in the history of present illness Meds Home Medications and Allergies Home Medications ?Medication ?Instructions ?Recorded ?Confirmed ?Type vit no.95-ferrous 1 tab PO QDAY 12/13/1809/18 History fumarate 28 mg-folic acid 800 mcg tablet () dicyclomine 10 mg capsule 10 mg PO PRN abdominal pain 10/11/24 History Allergies Allergy/AdvReac Type Severity Reaction Status Date / Time etonogestrel (From Nexplanon) Allergy Headache Verified 10/10/24 22:21 latex Allergy Verified 10/10/24 22:21 shrimp Allergy Verified 10/10/24 22:21 Exam Vital Signs Temp Pulse Resp BP Pulse Ox O2 Del Method 97.4 F 87 17 119/64 100 Room Air 10/11/24 20:00 10/11/24 20:00 10/11/24 20:00 10/11/24 20:00 10/11/24 20:00 10/11/24 20:00 Routine Respiratory Exam Comments: Normal to auscultation Routine Abdominal Exam Comments: Midepigastric tenderness Results Labs 10/11/24 04:36 10/11/24 04:36 Labs: Short CBC 10/10/24 10/11/24 Range/Units 23:20 04:36 WBC 8.8 5.6 (3.6-11.0) Thou/mm3 Hgb 12.8 11.6 L (12.0-16.0) g/dL Hct 36.6 33.5 L (36.0-46.0) % Plt Count 189 179 (140-440) Thou/mm3 BMP 10/10/24 10/11/24 23:20 04:36 Sodium 140 141 Potassium 4.1 3.9 Chloride 105 107 Carbon Dioxide 25.6 27.3 BUN 13 10 Creatinine 0.8 0.7 Glucose 103 103 Calcium 9.9 8.8 Liver Function 10/10/24 10/11/24 Range/Units 23:20 04:36 Total Bilirubin 0.3 0.5 (0.3-1.2) mg/dL AST 16 12 (0-34) U/L ALT 14 10 (10-49) U/L Alkaline Phosphatase 63 48 D (46-116) U/L Albumin 4.6 3.9 D (3.5-5.0) gm/dL Urine 10/10/24 Range/Units 23:44 Urine Color Colorless A (Lt Yel-Yel) Urine Clarity Clear (Clear/Hazy) Urine pH 5.5 (5.0-7.0) Ur Specific [place] 1.010 (1.001-1.035) Urine Protein Negative (Neg - Trace) Urine Glucose (UA) Negative (Negative) Assessment and Plan Additional Assessment & Plan Additional Plan: Acute idiopathic pancreatitis may be related to her underlying Crohn's disease as there is a correlation between Crohn's and pancreatitis As the extraintestinal manifestation of Crohn's disease Surprising she is not on any medication except dicyclomine Suggestions Conservative management with being n.p.o. IV fluids Pain control Recommend CCK HIDA scan with ejection fraction of the gallbladder just to make sure patient has no significant biliary dyskinesia in the setting of acute idiopathic pancreatitis Will follow the patient Thank you very much for the opportunity to participate in the care of this patient
--- NOTE | 2024-10-11 21:31 | XR_ITS ---
Examination: KANADCE, hepatobiliary radioisotope scan Gallbladder ejection fraction study. Date and time of exam: October 12, 2024 0822 hrs. Indications: Severe abdominal pain and discomfort this week elevated lipase Technique: 6.2 mCi of 99M Hepatolite administered. Serial imaging then obtained from immediate through 60 minutes. 1.6 mcg selective catheter Kinevac administered for gallbladder ejection fraction study. Findings: Radioisotope activity within the liver is reasonably homogenous. Gallbladder, common bile duct small bowel activity noted Impression: Gallbladder activity Gallbladder ejection fraction abnormally low 7%, normal range greater than 35%
[2024-10-11] MEDS: ONDANSETRON INJ 2 MG/ML INJ 2 ML 4 MG IV (22:17)
[2024-10-12] VITALS (8 sets, daily range): BP systolic 95–130; BP diastolic 63–84; PULSE 79–91; RESP 16–100; TEMP 36.2–36.7; O2SAT 95–100
[2024-10-12] MEDS: RINGERS LACTATED 1000 ML 1,000 ML 250 ML IV (01:09)
[2024-10-12 05:55] LABS: Basophils % (Auto) 1 % (0-2.5); Eosinophils # (Auto) 0.1 Thou/mm3 (0.0-0.5); Eosinophils % (Auto) 2 % (0-10); Hematocrit 33.1 % (36.0-46.0); Hemoglobin 11.4 g/dL (12.0-16.0); Immature Granulocytes % (Auto) 0 % (0-0); Immature Granulocytes Auto 0.01 Thou/mm3 (0.00-0.00); Lymphocytes # (Auto) 1.3 Thou/mm3 (1.0-4.8); Lymphocytes % (Auto) 23 % (10-50); Mean Corpuscular HGB Conc 34.4 g/dl (31.0-37.0); Mean Corpuscular Hemoglobin 30.4 pg (25.0-35.0); Mean Corpuscular Volume 88 fL (80-100); Monocytes # (Auto) 0.7 Thou/mm3 (0.0-0.8); Monocytes % (Auto) 12 % (0-12); Neutrophils # (Auto) 3.5 Thou/mm3 (1.8-7.7); Neutrophils % (Auto) 62 % (37-80); Nucleated Red Blood Cell % 0 /100 WBC (0); Platelet Count 199 Thou/mm3 (140-440); RDW Standard Deviation 39.4 fL (36.4-46.3); Red Blood Count 3.75 Miln/mm3 (4.00-5.20); White Blood Count 5.6 Thou/mm3 (3.6-11.0)
[2024-10-12 06:15] LABS: Partial Thromboplastin Time 27.7 Seconds (22.0-36.0); Prothrombin Time 11.4 Seconds (9.0-12.2)
[2024-10-12 06:36] LABS: Alanine Aminotransferase 9 U/L (10-49); Albumin, Serum 3.6 gm/dL (3.5-5.0); Albumin/Globulin Ratio 1.1 (1.2-2.2); Alkaline Phosphatase 37 U/L (46-116); Anion Gap 9 (7-16); Aspartate Amino Transferase 16 U/L (0-34); BUN/Creatinine Ratio 7 Ratio (12-20); Bilirubin,Total 0.6 mg/dL (0.3-1.2); Blood Urea Nitrogen 5 mg/dL (9-23); Calcium 9.3 mg/dL (8.3-10.6); Calcium (Corrected) 9.6 mg/dL (8.5-10.1); Carbon Dioxide 26.3 mMol/L (20.0-31.0); Chloride 106 mMol/L (98-107); Creatinine (Component) 0.7 mg/dL (0.6-1.3); Estimated Creatinine Clearance 120.7 mL/min (>60); Globulin 3.2 gm/dL (2.3-3.5); Glucose 91 mg/dL (74-106); Magnesium 1.8 mg/dL (1.6-2.6); Osmolality,Calculated 278 (275-295); Phosphorous 3.8 mg/dL (2.4-5.1); Sodium 141 mMol/L (136-145); Total Protein 6.8 gm/dL (5.7-8.2); eGFR > 60 See Note
[2024-10-12] MEDS: PANTOPRAZOLE INJ 40 MG VIAL IVP (08:02)
--- NOTE | 2024-10-12 10:55 | ESPR_ITS ---
Documentation for date of: 10/12/24 Subjective Subjective Interval history: Patient examined at bedside today. No acute overnight events. Says that her abdominal pain is still there, however she slept okay. She is wondering when she is in a go home. She is also continuing with going with Dr. Mays for outpatient GI. No other complaints at this time. Has not felt nauseous or vomited. Exam Vital Signs Temp Pulse Resp BP Pulse Ox O2 Del Method 97.8 F 83 19 124/63 100 Room Air 10/12/24 08:00 10/12/24 08:00 10/12/24 08:00 10/12/24 08:00 10/12/24 08:00 10/12/24 08:00 Narrative Exam General: AAOx3, NAD, pleasant appearing, cooperative HEENT: Moist mucous membranes, conjunctiva clear, EOMI, PERRLA, Cardiovascular: S1, S2, radial pulses +2 bilat, RRR Pulmonary: CTAB bilat no cough, no wheezing GI: Some tenderness to palpitation in both lower quadrants, no guarding, rigidity, rebound tenderness or distension Extremities: No presence of trace or pitting edema in lower extremities bilaterally, dorsalis pedis pulses +2 bilaterally Neuro: AAOx3, no focal motor or sensory deficits in the UE or LE bilat Psych: Good judgement, thought and behavior. Cooperative Objective Labs 10/13/24 05:23 10/13/24 05:23 Labs: Laboratory Results - last 24 hr 10/12/24 05:21 WBC 5.6 RBC 3.75 L Hgb 11.4 L Hct 33.1 L MCV 88 MCH 30.4 MCHC 34.4 RDW Std Deviation 39.4 Plt Count 199 Neut % (Auto) 62 Lymph % (Auto) 23 [place] % (Auto) 12 Eos % (Auto) 2 Baso % (Auto) 1 Neut # (Auto) 3.5 Lymph # (Auto) 1.3 [place] # (Auto) 0.7 Eos # (Auto) 0.1 Baso # (Auto) 0.0 Immature Gran # (Auto) 0.01 H Absolute Nucleated RBC 0.00 Immature Gran % 0 Nucleated RBC % 0 PT 11.4 INR 1.0 APTT 27.7 Sodium 141 Potassium 4.0 Chloride 106 Carbon Dioxide 26.3 Anion Gap 9 BUN 5 L Creatinine 0.7 Estim Creat Clear Calc 120.7 eGFR > 60 BUN/Creatinine Ratio 7 L Glucose 91 Calculated Osmolality 278 Calcium 9.3 Corrected Calcium 9.6 Phosphorus 3.8 Magnesium 1.8 Total Bilirubin 0.6 AST 16 ALT 9 L Alkaline Phosphatase 37 L D Total Protein 6.8 Albumin 3.6 Globulin 3.2 Albumin/Globulin Ratio 1.1 L Quality Measures Quality Measures VTE prophylaxis Assessment & Plan Assessment Current Active Medications: Generic Name Dose Route Start Last Admin Trade Name Freq PRN Reason Stop Dose Admin Acetaminophen 650 mg 10/11/24 07:54 Acetaminophen 325 Mg Tablet PO 11/10/24 02:17 Q6H PRN Mild Pain (1-3) & Fever >99 Hydrocodone Bitart/Acetaminophen 1 tab 10/11/24 02:23 10/11/24 17:32 Hydrocodone/Apap 10/325 Tab PO 10/16/24 02:22 1 tab Q4H PRN Administration PAIN SCALE 4-6 (Moderate Hydromorphone HCl 0.5 mg 10/11/24 02:23 Hydromorphone Inj 2 Mg/Ml Vial IVP 10/16/24 02:22 Q4H PRN PAIN SCALE 7-10 (Severe Lactated Ringer's 1,000 mls @ 250 mls/hr 10/11/24 07:53 10/12/24 01:09 Lactated Ringers IV 11/10/24 07:52 250 mls/hr .Q4H KEDAR Administration Lactated Ringer's 500 mls @ 75 mls/hr 10/12/24 08:18 Lactated Ringers IV 10/12/24 14:57 .Q6H40M ONE Iron Sucrose 200 mg 10/12/24 09:00 Iron Sucrose Cplx Inj 20 Mg/Ml Vial 5 Ml IVP 10/16/24 08:59 QDAY KEDAR Ondansetron HCl 4 mg 10/11/24 02:23 10/11/24 22:17 Ondansetron Inj 2 Mg/Ml Inj 2 Ml IV 11/10/24 02:22 4 mg Q6H PRN Administration NAUSEA OR VOMITING Protocol Pantoprazole Sodium 40 mg 10/11/24 09:00 10/12/24 08:02 Pantoprazole Inj 40 Mg Vial IVP 11/10/24 08:59 40 mg QDAY KEDAR Administration Plan Assessment: Ms. Norris is a 29-year-old female with past medical history of Crohn's disease who presented to [facility] emergency department from home on 10/11/2024 with a chief complaint of abdominal pain. Patient admitted for further management of acute pancreatitis. #Acute pancreatitis # ? Crohn's disease flare up Patient is not have a white count currently at 5.6, hematocrit [address] findings of pancreatitis, however lipase is over 2500 in addition to classic abdominal pain radiating to the back which would give diagnosis of pancreatitis at this time Patient denies being hospitalized before for IBD, however this may be a cause of her pancreatitis at this time She denies having any heavy alcohol episodes, has no history of gallstones, and her triglycerides are 50 This could be a Crohn's flareup, however will treat for pancreatitis and follow- up GI recs BISAP score 0 less than 1% risk of mortality Melany criteria: 0 points Patient continues to have improvement, trending toward discharge HIDA scan ordered by GI team for consideration of biliary dyskinesia Patient's BMI of 30 Plan: -LR 75 cc/hour 500 mL 1 bag -Pain management with Tylenol, [place], Dilaudid as needed -Zofran as needed for nausea/vomiting -Peptic ulcer disease/low-fat diet -Follow-up proteinase 3, DALIA, myeloperoxidase -IV Protonix ?GI consulted, appreciate recs ?Follow-up HIDA #? 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 Mckenzie, and my attending physician, Dr. Felix Ford, PGY-1 LPatient examined and case discussed with the team including attending physician. Note reviewed, I agree with the care plan as documented. Ms Ulrich is a pleasant 29 year old female admitted for acute pancreatitis vs. crohn's disease flare up. She was diagnosed with crohns in 2016 but has been off of all maintenance medications since last 4 years. Patient had a fatty meal yesterday and developed acute epigastric pain. In the ED, lipase elevated to [address] abdomen did not show pancreatitis but remarkable for GB sludge. Follow up Gb ultrasound negative but HIDA showed low EF of 7%. Plan: GI consulted for further evaluation of Crohn's disease. General surgery consulted for evaluation of need for cholecystectomy in patient. Patient has received 8L since admission, pain has now resolved. Diet advanced from liquids to GERD/PUD. Will continue to monitor closely and follow up with recommendations. Dispo: Anticipate DC in 24 - 48 hours. - Matthew Mckenzie MD, PGY 2 Disclaimer: The document below may not be free of grammatical/phonetic/typographic errors due to use of voice recognition software. This does not dissuade from our commitment to providing health care with the patient's best interest in mind. L Attending Provider Attestation/Addendum I have discussed and was present for the essential components of the history, physical examination, diagnosis, and treatment plan with the resident. I agree with the patient's care as documented by the resident and amended herein by me. Boni Washington DO. Although this document has been carefully reviewed, there may still be some phonetic and other typographical errors. These errors are purely grammatical due to imperfections in the software program and should not be construed in any way to compromise the substance of the patient's medical care during this visit.
[2024-10-12] MEDS: IRON SUCROSE CPLX INJ 20 MG/ML VIAL 5 ML 200 MG IVP (11:01)
[2024-10-12 11:50] LABS: Path Review Blood Smear Sent to Pathologist
[2024-10-12] MEDS: RINGERS LACTATED 1000 ML 1,000 ML 75 ML IV (12:46)
[2024-10-12] MEDS: HYDROcodone/APAP 10/325 TAB PO ×2 (14:38→19:06)
--- NOTE | 2024-10-12 17:46 | PD.SURCONS ---
HPI Consult details Consult date: 10/12/24 Reason for consultation narrative: The patient was seen in consultation because of poor ejection fraction of the gallbladder and history of pancreatitis History of present illness: History of present illness revealed that the patient was in her usual health until about 3 weeks ago when she started having pain over the left side of the abdomen. She denies any history of nausea or vomiting. Intensity of the pain increased and she came to the emergency room. She also has a history of constipation. She had 1 beer on Thursday the pain occurred on Thursday which was severe. She does not have a regular drinking problem. She has a history of Crohn's disease diagnosed in [facility] and has undergone colonoscopy last January and was told that it was normal. She was on mesalamine for a short time but she stopped when she got . Subsequently she was not advised to resume that. Patient has been diagnosed for anemia in the past and hemochromatosis Review of Systems ENT Ears, Nose, Mouth, and Throat: Denies disequilibrium, Denies dizziness and Denies vertigo Musculoskeletal Musculoskeletal: Denies abnormal gait Neurologic Neurologic: Denies abnormal gait, Denies disequilibrium, Denies dizziness and Denies vertigo Past Medical History Past Medical History NEUROLOGIC: Positive Neurological Disorders and Migraine CARDIAC: Positive Cardiac Disorders and Cardiac Arrhythmia; Negative Congestive Heart Failure RESPIRATORY: Negative Chronic Obstructive Pulmonary Disease (COPD) GASTROINTESTINAL: Positive Gastrointestinal Disorders, Irritable Bowel, Crohn's Disease and Obesity; Negative Hepatitis or Colorectal Cancer GENITOURINARY: Positive Genitourinary Disorders; Negative Renal Disease or Prostate Cancer REPRODUCTIVE: Positive Previous Pregnancies; Negative Breast Cancer or Testicular Cancer MUSCULOSKELETAL: Negative Musculoskeletal Disorders or Bone Cancer ENDOCRINE: Negative Endocrine Disorders, Diabetes Mellitus Type 1 or Diabetes Mellitus Type 2 HEMATOLOGIC: Positive Blood Disorders and Anemia PSYCHO/SOCIAL: Positive Anxiety and Depression OTHER HISTORY: Negative Hospitalization, Autoimmune Disease, Down Syndrome, Developmental Delay, Shingles, Falls, Blood Transfusions, Blood Transfusion Reaction, Anesthesia Reactions, Organ Transplant, Chemotherapy, Radiation Therapy, Hyperbaric Therapy, MRSA, VRSA, Vancomycin-Resistant Enterococci, Human Immunodeficiency Virus (HIV), Chicken Pox, Measles, Mumps, Rubella ([place]oven[place] Measles), Pertussis, Clostridium Difficile, Cancer, Breast Cancer, Cervical Cancer, Colorectal Cancer, Lung Cancer, Ovarian Cancer, Prostate Cancer or Testicular Cancer Family History FAMILY HISTORY: Negative Family Psychiatric Problems, Family Respiratory Disorders, Family Cardiac Disorders, Family Gastrointestinal Problems, Family Cancer, Family Surgery or Family Anesthesia Reaction Surgical History SURGICAL: Negative Abdominal Surgery, Nephrectomy, Joint Replacement, Section or Organ Transplant OTHER SURGICAL HX: As in the history of present illness Social History SMOKING STATUS: Former smoker SECOND HAND EXPOSURE: No SUBSTANCE USE: does not use Past Medical History Comments PMH COMMENT: PMH: Positive for Crohn's disease and hemochromatosis PSHx: Colonoscopy about 6 months ago Allergies: Etonogestrel, latex, shrimp Social history: -Smoking: Denies -Alcohol Use: Occasional alcohol use, reports drinking about 1-2 beers in a month -Illicit Drug Use: Denies Family History: Positive family history for diabetes in both parents Meds Home Medications and Allergies Home Medications ?Medication ?Instructions ?Recorded ?Confirmed ?Type vit no.95-ferrous 1 tab PO QDAY 12/13/18 10/11/24 History fumarate 28 mg-folic acid 800 mcg tablet () dicyclomine 10 mg capsule 10 mg PO PRN abdominal pain 10/11/24 History Allergies Allergy/AdvReac Type Severity Reaction Status Date / Time etonogestrel (From Nexplanon) Allergy Headache Verified 10/10/24 22:21 latex Allergy Verified 10/10/24 22:21 shrimp Allergy Verified 10/10/24 22:21 Exam Vital Signs Temp Pulse Resp BP Pulse Ox O2 Del Method 97.6 F 84 18 130/84 99 Room Air 10/12/24 16:00 10/12/24 16:00 10/12/24 16:00 10/12/24 16:00 10/12/24 16:00 10/12/24 16:00 Narrative Exam Physical examination revealed slightly obese female who appeared to be in her stated age of 29. She is 5 feet 4 inches tall weighing 177 pounds with BMI of 30.5. Her vital signs are normal Routine Abdominal Exam Comments: Examination of the abdomen showed no tenderness in the right upper quadrant but mild discomfort on palpation of the left side of the abdomen. Patient has always had pain on the left side. Routine Rectal Exam Comments: Deferred because of the recent colonoscopy Routine Exam Comments: Deferred Results Results: Laboratory Laboratory Narrative: Patient's laboratory workup showed normal WBC and chemistry. She had elevated lipase and amylase Results: Imaging Imaging narrative: CT scan of the abdomen failed to show any pancreatitis. Patient's ultrasound of the gallbladder was negative. However ejection fraction showed only 7% Assessment & Plan Additional Assessment Additional comments: Impression: Questionable pancreatitis Questionable Crohn's disease Questionable biliary dyskinesia Plan Plan: Patient's clinical presentation and her history is very confusing. She she has had multiple diagnosis with Crohn's disease and ulcerative colitis and hemochromatosis. She also has a history of pancreatitis as per the enzymes of lipase and amylase. The gallbladder ultrasound is negative and in the absence of gallstone pancreatitis is rare. The poor ejection fraction is a red brito coincidental finding. Patient does not have any tenderness in the right upper quadrant and therefore that cannot be blamed for any of her presentation. Will wait for the gastroenterology evaluation to be completed and then we can discharge the patient. Biliary dyskinesia if she indeed has one can be evaluated as an outpatient basis to see if she will need surgery thank you
--- NOTE | 2024-10-12 22:33 | PD.IMPROG ---
Documentation for date of: 10/12/24 Subjective Subjective Interval history: Surgical consult appreciated Bili dyskinesia with elevated significant lipase level is an indication for laparoscopic versus open cholecystectomy It can definitely be done as an outpatient-still strongly recommended Exam Vital Signs Temp Pulse Resp BP Pulse Ox O2 Del Method 97.1 F 91 16 117/68 98 Room Air 10/12/24 20:00 10/12/24 20:00 10/12/24 20:00 10/12/24 20:00 10/12/24 20:00 10/12/24 20:00 Objective Labs 10/12/24 05:21 10/12/24 05:21 Labs: Laboratory Results - last 24 hr 10/12/24 05:21 WBC 5.6 RBC 3.75 L Hgb 11.4 L Hct 33.1 L MCV 88 MCH 30.4 MCHC 34.4 RDW Std Deviation 39.4 Plt Count 199 Neut % (Auto) 62 Lymph % (Auto) 23 [place] % (Auto) 12 Eos % (Auto) 2 Baso % (Auto) 1 Neut # (Auto) 3.5 Lymph # (Auto) 1.3 [place] # (Auto) 0.7 Eos # (Auto) 0.1 Baso # (Auto) 0.0 Immature Gran # (Auto) 0.01 H Absolute Nucleated RBC 0.00 Immature Gran % 0 Nucleated RBC % 0 Smear Path Review Sent to Pathologist PT 11.4 INR 1.0 APTT 27.7 Sodium 141 Potassium 4.0 Chloride 106 Carbon Dioxide 26.3 Anion Gap 9 BUN 5 L Creatinine 0.7 Estim Creat Clear Calc 120.7 eGFR > 60 BUN/Creatinine Ratio 7 L Glucose 91 Calculated Osmolality 278 Calcium 9.3 Corrected Calcium 9.6 Phosphorus 3.8 Magnesium 1.8 Total Bilirubin 0.6 AST 16 ALT 9 L Alkaline Phosphatase 37 L D Total Protein 6.8 Albumin 3.6 Globulin 3.2 Albumin/Globulin Ratio 1.1 L Impressions Impression: Acute pancreatitis Biliary dyskinesia History of Crohn disease History of hemochromatosis Plan as in the HPI Patient can most likely be discharged tomorrow to be followed by the surgeon as an outpatient I can follow as an outpatient as well Assessment & Plan A&P Narrative Acute idiopathic pancreatitis may be related to her underlying Crohn's disease as there is a correlation between Crohn's and pancreatitis As the extraintestinal manifestation of Crohn's disease Surprising she is not on any medication except dicyclomine Suggestions Conservative management with being n.p.o. IV fluids Pain control Recommend CCK HIDA scan with ejection fraction of the gallbladder just to make sure patient has no significant biliary dyskinesia in the setting of acute idiopathic pancreatitis Will follow the patient Thank you very much for the opportunity to participate in the care of this patient Time Spent With Patient Time: Total time spent is greater than 50% in coordination of care (as documented) at patient's floor/unit and/or counseling patient:
[2024-10-13] VITALS: BP 119/74; PULSE 82; RESP 18; TEMP 36.6; O2SAT 96
[2024-10-13 04:00] VITALS: BP 123/66; PULSE 89; RESP 15; TEMP 36.6; O2SAT 97
[2024-10-13 05:53] LABS: Basophils % (Auto) 1 % (0-2.5); Eosinophils # (Auto) 0.2 Thou/mm3 (0.0-0.5); Eosinophils % (Auto) 3 % (0-10); Hemoglobin 11.4 g/dL (12.0-16.0); Immature Granulocytes % (Auto) 0 % (0-0); Immature Granulocytes Auto 0.02 Thou/mm3 (0.00-0.00); Lymphocytes # (Auto) 0.9 Thou/mm3 (1.0-4.8); Lymphocytes % (Auto) 20 % (10-50); Mean Corpuscular HGB Conc 34.5 g/dl (31.0-37.0); Mean Corpuscular Hemoglobin 30.3 pg (25.0-35.0); Mean Corpuscular Volume 88 fL (80-100); Monocytes # (Auto) 0.6 Thou/mm3 (0.0-0.8); Monocytes % (Auto) 12 % (0-12); Neutrophils % (Auto) 64 % (37-80); Nucleated Red Blood Cell % 0 /100 WBC (0); Platelet Count 182 Thou/mm3 (140-440); RDW Standard Deviation 38.6 fL (36.4-46.3); Red Blood Count 3.76 Miln/mm3 (4.00-5.20); White Blood Count 4.7 Thou/mm3 (3.6-11.0)
[2024-10-13 06:07] LABS: INR 1.1 (0.9-1.3); Partial Thromboplastin Time 29.4 Seconds (22.0-36.0); Prothrombin Time 11.7 Seconds (9.0-12.2)
[2024-10-13 06:33] LABS: Alanine Aminotransferase 8 U/L (10-49); Albumin, Serum 3.9 gm/dL (3.5-5.0); Albumin/Globulin Ratio 1.7 (1.2-2.2); Alkaline Phosphatase 39 U/L (46-116); Anion Gap 10 (7-16); Aspartate Amino Transferase 12 U/L (0-34); BUN/Creatinine Ratio 10 Ratio (12-20); Bilirubin,Total 0.6 mg/dL (0.3-1.2); Blood Urea Nitrogen 7 mg/dL (9-23); Calcium 9.2 mg/dL (8.3-10.6); Calcium (Corrected) 9.3 mg/dL (8.5-10.1); Carbon Dioxide 26.5 mMol/L (20.0-31.0); Chloride 103 mMol/L (98-107); Creatinine (Component) 0.7 mg/dL (0.6-1.3); Estimated Creatinine Clearance 120.7 mL/min (>60); Globulin 2.3 gm/dL (2.3-3.5); Glucose 98 mg/dL (74-106); Magnesium 1.8 mg/dL (1.6-2.6); Osmolality,Calculated 275 (275-295); Phosphorous 4.2 mg/dL (2.4-5.1); Potassium 3.9 mMol/L (3.4-5.1); Sodium 139 mMol/L (136-145); Total Protein 6.2 gm/dL (5.7-8.2); eGFR > 60 See Note
[2024-10-13 08:00] VITALS: BP 109/66; PULSE 88; PULSE 91; RESP 18; TEMP 36.6; O2SAT 91
[2024-10-13] MEDS: PANTOPRAZOLE INJ 40 MG VIAL IVP (08:49)
[2024-10-13] MEDS: Milk Of Magnesia Susp 30 ML UDC PO (09:44)
[2024-10-13] MEDS: LACTULOSE SYRUP 20 GM/30 ML UDC PO (11:32)
[2024-10-13 12:00] VITALS: BP 122/76; PULSE 79; RESP 18; TEMP 36.4; O2SAT 98
[2024-10-13 12:30] VITALS: PULSE 87; RESP 16; RESP 99
--- NOTE | 2024-10-13 13:52 | ESDS_ITS ---
<Statement entered by Matthew Mckenzie MD - 10/13/24 15:04> Patient was examined with the team including attending physician. Note reviewed, I agree with the discharge plan as documented. - Matthew Mckenzie M.D. PGY2 Disclaimer: The document below may not be free of grammatical/phonetic/typographic errors due to use of voice recognition software. This does not dissuade from the commitment to providing health care with the patient's best interest in mind. Planned Discharge Date 10/13/24 DS: Providers Provider Date of admission: 10/11/24 02:16 Primary care physician: Josse Murphy MD Admitting Provider: Lashonda Moreno MD Attending Provider on Admission: Hayden Washington DO Consults: 10/11/24 07:36 Consult to Gastroenterology Routine Comment: Consulting Provider: Jairo Mays 10/12/24 15:59 Consult to General Surgery Routine Comment: Concern for biliary dyskinesia Consulting Provider: Libby Espino Attending Provider on DC: Hayden Washington DO Discharging Provider: Hayden Washington DO DS: Diagnosis Problem List Completed Was Problem List Reviewed/Reconciled?: Yes Hospital Course Hospital Course Hospital course: Ms. Norris is a 29-year-old female with past medical history of Crohn's disease (diagnosed 2020, follows GI [facility] Serjio, only takes dicyclomine intermittently) and hemochromatosis who was admitted to [facility] emergency department from home on 10/11/2024 for acute pancreatitis and Crohn's disease flare up. Patient had presented with a blood pressure of 114/75, pulse 81, respiratory rate 20, temp 98.3, O2 sat 100 on room air. ED labs were significant for lipase 2550. CT A/P did not show findings of pancreatitis, however showed moderate amount of fecal matter in colon. Patient was given 1 L NS bolus in ED, Zofran 4 mg p.o. x 1, Toradol 30 mg IM x 1 and morphine 2 mg IVP x 1 in ED. Medicine was consulted and pt was admitted to floors. Patient was started on fluids while on the floors up to 250 cc an hour. While on the floors, GI, Dr. Mays was consulted who had seen patient. It was recommended for patient to continue with fluid hydration and pain management with bowel rest. HIDA scan was ordered for patient due to concern for cholelithiasis. HIDA did show ejection fraction of 7%, in which surgery was consulted. Dr Cavazos, general surgery, seen patient who had recommended for patient to consider possible elective procedure outpatient, but no procedure at this time. In regards to her Crohn's disease, patient does not take any maintenance medicine and only takes dicyclomine when she needs to. Pain, and pancreatitis likely related also to Crohn's disease flareup. Patient was recommended to follow-up outpatient for further management of Crohn's. #Acute pancreatitis #Crohn's disease flare up #? Hemochromatosis, gene carrier # Iron deficiency anemia versus anemia of chronic disease Discharge instructions: - Follow up with PCP after discharge. If you dont have a PCP please call: [phone] to make an appointment at the [facility]. - You will need a referral to see a [employer] Dr. Mays, to further evaluate and monitor your IBD. - Follow up with Gastroenterology at [facility]. - May take Dulcolax if constipated, no bowel movement for over 48 hours - You can take Hyoscyamine up to 2 tablets as needed, for abdominal pain - Recommend referral to see [facility] for menorrhagia work up and possible endometriosis - Continue discyclomine as needed. - Start Iron supplements every other day and daily multivitamins. - Your gallbladder function is poor, recommend referral to see general surgeon Dr Espino outpatient for further evaluation. - Stop all non-selective NSAIDs including Ibuprofen. May take Celebrex if needed as LAURENT 2 selective - Return to ED if symptoms worsen Patient seen and care discussed with my senior resident, Dr. Mckenzie, and my attending physician, Dr. Felix Ford, PGY-1 Time Spent with Patient Time attestation: Total time spent providing and/or coordinating discharge services: Time spent: Greater than 30 minutes Exam Vital Signs Temp Pulse Resp BP Pulse Ox O2 Del Method 97.6 F 87 16 122/76 98 Room Air 10/13/24 12:00 10/13/24 12:30 10/13/24 12:30 10/13/24 12:00 10/13/24 12:00 10/13/24 12:00 Narrative Exam General: AAOx3, NAD, pleasant appearing, cooperative HEENT: Moist mucous membranes, conjunctiva clear, EOMI, PERRLA, Cardiovascular: S1, S2, radial pulses +2 bilat, RRR Pulmonary: CTAB bilat no cough, no wheezing GI: Some tenderness to palpitation in both lower quadrants, no guarding, rigidity, rebound tenderness or distension Extremities: No presence of trace or pitting edema in lower extremities bilaterally, dorsalis pedis pulses +2 bilaterally Neuro: AAOx3, no focal motor or sensory deficits in the UE or LE bilat Psych: Good judgement, thought and behavior. Cooperative Discharge Plan Plan Patient Disposition: HOME (Self Care) Disposition Comment: Stable Patient condition on transfer: Stable Care Plan Goals: - Follow up with PCP after discharge. If you dont have a PCP please call: [phone] to make an appointment at the [facility]. - You will need a referral to see a [employer] Dr. Mays, to further evaluate and monitor your IBD. - Follow up with Gastroenterology at [facility]. - May take Dulcolax if constipated, no bowel movement for over 48 hours - You can take Hyoscyamine up to 2 tablets as needed, for abdominal pain - Recommend referral to see [facility] for menorrhagia work up and possible endometriosis - Continue discyclomine as needed. - Start Iron supplements every other day and daily multivitamins. - Your gallbladder function is poor, recommend referral to see general surgeon Dr Espino outpatient for further evaluation. - Stop all non-selective NSAIDs including Ibuprofen. May take Celebrex if needed as LAURENT 2 selective - Return to ED if symptoms worsen. Prescriptions/Referrals Prescriptions/Med Rec: New bisacodyl [Gentle Laxative (bisacodyl)] 5 mg tablet,delayed release (DR/EC) 5 mg PO QDAY PRN (Reason: constipation) 2 Days Qty: 30 0RF hyoscyamine sulfate 0.125 mg tablet 0.25 mg PO Q8H PRN (Reason: abdominal pain) Qty: 30 0RF ferrous sulfate 325 mg (65 mg iron) tablet 325 mg PO Q OTHER DAY Qty: 30 0RF folic acid-vit B6-vit B12 0.8-50-100 mg-mg-mcg tablet 1 tab PO QDAY Qty: 30 0RF Continued dicyclomine 10 mg capsule 10 mg PO PRN (Reason: abdominal pain) Discontinued PNV cmb#95-ferrous fumarate-FA [] 28 mg iron- 800 mcg Tablet 1 tab PO QDAY ibuprofen 600 mg tablet 600 mg PO Q8H PRN (Reason: pain) Qty: 14 0RF Referrals: Josse Murphy MD [Primary Care Provider] - Jairo Mays MD [Physician] - Matthew Mckenzie MD [Resident] - Patient/Caregiver Discharge Instructions Discharge Activity: resume usual activities Education Materials: Understanding Pancreatitis, Pancreatitis Acute Dc, Crohn Disease Lifestyle Manage, Managing Crohn's Disease: Medicines Print Language: [place] Stand Alone Forms: Samreen Award Info., Patient Portal Info Letter Discharge Order Discharge Orders: Discharge (Routine); Ordered 10/13/24 Ordered By: Paul Scott Quality Discharge Quality Measures VTE prophylaxis (Heparin subq ) Attestestation MD Attestation I have discussed and was present for the essential components of the discharge history, physical examination, diagnosis, and discharge treatment plan with the resident. I agree with the patient's discharge care as documented by the resident and amended herein by me. Boni Washington DO. The patient understood all discharge instructions, all questions were answered satisfactorily. The patient was instructed to return to the Emergency Department is symptoms worsened or persisted. Although this document has been carefully reviewed, there may still be some phonetic and other typographical errors. These errors are purely grammatical due to imperfections in the software program and should not be construed in any way to compromise the substance of the patient's medical care during this visit.
== END 2024-10-13 15:03 | disposition home or self-care (01) | DRG 282 ==
LOC: SERX 10-11 02:47 → SERHOLD 10-11 03:58 → S3SX 10-11 03:58
PROVIDERS: Student in an Organized Health Care Education/Training Program; Admitting Provider Student in an Organized Health Care Education/Training Program; Emergency Provider Emergency Medicine; PCP Family Medicine; Visit Provider Student in an Organized Health Care Education/Training Program
DX: K85.90 Acute pancreatitis without necrosis or infection, unspecified (principal); K50.911 Crohn's disease, unspecified, with rectal bleeding; K82.8 Other specified diseases of gallbladder; E83.119 Hemochromatosis, unspecified; R31.9 Hematuria, unspecified; D63.8 Anemia in other chronic diseases classified elsewhere; Z68.30 Body mass index [BMI] 30.0-30.9, adult; K59.00 Constipation, unspecified; Z87.891 Personal history of nicotine dependence; E66.9 Obesity, unspecified; Z91.040 Latex allergy status; Z91.013 Allergy to seafood
CPT/HCPCS: 36415; 74176; 76705; 78227; 80053; 80061; 80307; 81001; 82150; 82728; 83036; 83540; 83550; 83690; 83735; 84100; 84703; 85025; 85610; 85652; 85730; 86021; 86036; 86140; 93005; 93225; 94762; A9537; J1756; J1885; J2270; J2405; J2470; J2805; J7030; J7120; Q0162; A9270

== ENCOUNTER 2024-10-21 15:31 | Outpatient (AMB) | payer MEDICAID, SELFPAY ==
--- NOTE | 2024-10-21 15:52 | PD.RESCLINIC ---
Vital Signs 10/21/24 15:55 Height 1.63 m Height Method Stated Weight 77.224 kg Weight Measurement Method Standing Scale BMI 29.2 BP 112/73 Blood Pressure Source Automatic Cuff Blood Pressure Location Left Upper Arm Position Sitting Respiration 14 Pulse 74 Pulse Source Monitor Temp 97.9 F Temp Source Oral Pulse Oximetry (%) 98 Oxygen Delivery Method Room Air Allergies/Meds Allergies & Medications Allergies etonogestrel (From Nexplanon) Allergy (Verified 10/21/24 15:58) Headache latex Allergy (Verified 10/21/24 15:58) shrimp Allergy (Verified 10/21/24 15:58) Medication Reconciliation dicyclomine 10 mg capsule 10 mg PO PRN abdominal pain 10/11/24 [History Confirmed 10/21/24] ferrous sulfate 325 mg (65 mg iron) tablet 325 mg PO Q OTHER DAY #30 tabs 10/13/24 [Rx Confirmed 10/21/24] folic acid-vit B6-vit B12 0.8 mg-50 mg-100 mcg tablet 1 tab PO QDAY #30 tabs 10/13/24 [Rx Confirmed 10/21/24] hyoscyamine sulfate 0.125 mg tablet 0.25 mg (2 x 0.125 mg) PO Q8H PRN abdominal pain #30 tabs 10/13/24 [Rx Confirmed 10/21/24] MA Intake Visit Data Collection New Patient or Established: Established Patient (seen at [facility] within 3 years) Seen by Clinical Staff ONLY (RN/MA): No Reason for Visit:: EMERGENCY ROOM FOLLOW UP Pain Present Currently: No Pain scale:: 0 Pain Scale Used: [place]/Numerical Salesforce 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 Required: No PCP or OBGYN visit in last 3 months: No Hx Now: No Date of Last Menstrual Period: 10/19/24 Do You Feel Safe at Home: Yes Authorities Contacted: N/A Smoking Status Smoking Status: Former smoker Immunization / Flu Flu Vaccine in the Last 12 Months: No Flu Vaccine Exclusion Criteria: No Exclusion Criteria Past Medical History Past Medical History NEUROLOGIC: Positive Neurological Disorders and Migraine CARDIAC: Positive Cardiac Disorders and Cardiac Arrhythmia; Negative Congestive Heart Failure RESPIRATORY: Negative Chronic Obstructive Pulmonary Disease (COPD) GASTROINTESTINAL: Positive Gastrointestinal Disorders, Irritable Bowel, Crohn's Disease and Obesity; Negative Hepatitis or Colorectal Cancer GENITOURINARY: Positive Genitourinary Disorders; Negative Renal Disease or Prostate Cancer REPRODUCTIVE: Positive Previous Pregnancies; Negative Breast Cancer or Testicular Cancer MUSCULOSKELETAL: Negative Bone Cancer ENDOCRINE: Negative Endocrine Disorders, Diabetes Mellitus Type 1 or Diabetes Mellitus Type 2 HEMATOLOGIC: Positive Blood Disorders and Anemia PSYCHO/SOCIAL: Positive Anxiety and Depression OTHER HISTORY: Negative Hospitalization, Down Syndrome, Developmental Delay, Shingles, Falls, Blood Transfusions, Blood Transfusion Reaction, Anesthesia Reactions, Organ Transplant, Chemotherapy, Radiation Therapy, Hyperbaric Therapy, MRSA, VRSA, Vancomycin-Resistant Enterococci, Human Immunodeficiency Virus (HIV), Chicken Pox, Measles, Mumps, Rubella ([place] Measles), Pertussis, Clostridium Difficile, Cancer, Breast Cancer, Cervical Cancer, Colorectal Cancer, Lung Cancer, Ovarian Cancer, Prostate Cancer or Testicular Cancer Family History FAMILY HISTORY: Negative Family Psychiatric Problems, Family Respiratory Disorders, Family Cardiac Disorders, Family Gastrointestinal Problems, Family Cancer, Family Surgery or Family Anesthesia Reaction Surgical History SURGICAL: Negative Abdominal Surgery, Nephrectomy, Joint Replacement, Section or Organ Transplant Social History SMOKING STATUS: Smoking status: Former smoker SECOND HAND EXPOSURE: second hand exposure: No ALCOHOL: Alcohol Intake: Current ALCOHOL FREQUENCY: Alcohol Intake Frequency: A Few Times a Month HOUSING: Housing: Apartment LIVES WITH: Lives With: Children, Family and Spouse Patient Portal Questionaires PHQ-9 PHQ-2 Over the last 2 weeks, how often have you been bothered by any of the following problems? 1. Little interest or pleasure in doing things: not at all 2. Feeling down, depressed, or hopeless: not at all Total score: 0 PHQ-9 3. Trouble falling or staying asleep, or sleeping too much: Not at all 4. Feeling tired or having little energy: Not at all 5. Poor appetite or overeating: Not at all 6. Feeling bad about yourself - or that you are a failure or have let yourself or your family down: Not at all 7. Trouble concentrating on things, such as reading the newspaper or watching television: Not at all 8. Moving or speaking so slowly that other people could have noticed? - Or the opposite - being so fidgety or restless that you have been moving around a lot more than usual: not at all 9. Thoughts that you would be better off or of hurting yourself in some way: Not at all Total score: 0 Source: Developed by Drs. Keon Combs, Pearl Zapata, Rickey Cruz and colleagues, with an educational jose from [employer]. Depression screen completed yes Social History Living Situation History Housing: Apartment Tobacco History Smoking Status: Former smoker Second Hand Smoke Exposure: No Alcohol History Alcohol Intake: Current Alcohol Intake Frequency: A Few Times a Month Domestic Abuse History Do You Feel Safe at Home: Yes Review of Systems Report any current symptoms Only answer those that you have currently: Past Medical History Past Medical History Have you ever been diagnosed with any of the following: Neurological Problems Migraine: Yes Cardiology Problems Cardiac Arrhythmia: Yes Congestive Heart Failure: No Respiratory Problems Chronic Obstructive Pulmonary Disease (COPD): No Stomache/Intestinal Problems Hepatitis: No Colorectal Cancer: No Irritable Bowel: Yes Crohn's Disease: Yes Obesity: Yes Genital/Urinary Problems Renal Disease: No Prostate Cancer: No Reproductive Problems Breast Cancer: No Previous Pregnancies: Yes Testicular Cancer: No Musculoskeletal Problems Bone Cancer: No Endocrine Problems Diabetes Mellitus Type 1: No Diabetes Mellitus Type 2: No Blood Problems Anemia: Yes Psychologic Problems Anxiety: Yes Depression: Yes Other Problems Hospitalization: No Down Syndrome: No Developmental Delay: No Shingles: No Falls: No Blood Transfusions: No Blood Transfusion Reaction: No Anesthesia Reactions: No Organ Transplant: No Chemotherapy: No Radiation Therapy: No Hyperbaric Therapy: No MRSA: No VRSA: No Vancomycin-Resistant Enterococci: No Human Immunodeficiency Virus (HIV): No Chicken Pox: No Measles: No Mumps: No Rubella ([place] Measles): No Pertussis: No Clostridium Difficile: No Cancer: No Cervical Cancer: No Lung Cancer: No Ovarian Cancer: No History of Present Illness HPI Narrative Ms. Serg Gutierrez is a 29-year-old female with past medical history of Crohn's disease and ? Hematochromatosis gene carrier who presented to [facility] on 10/21/2024 after being discharged from [facility] on 10/13/2024 for acute pancreatitis and Crohn's disease flareup. Patient initially presented to emergency department with lipase of 2550 and left-sided abdominal pain radiating to the back CT scan was negative for acute pancreatitis. Patient reported that she was diagnosed with Crohn's disease in 2020 and has been following with GI at [facility] for further management. With the progression of hospital stay patient was found to have ejection fraction of 7% on HIDA scan due to concern of cholestasis. General surgery consulted during hospitalization recommended outpatient follow-up. On discharge patient was recommended to follow-up with [facility] for menorrhagia workup and suspicion of endometriosis. Patient was discharged on hyoscyamine as needed, Dulcolax as needed and iron tablets. PMH: Positive for Crohn's disease and hemochromatosis PSHx: Colonoscopy about 6 months ago Allergies: Etonogestrel, latex, shrimp Social history: -Smoking: Denies -Alcohol Use: Occasional alcohol use, reports drinking about 1-2 beers in a month -Illicit Drug Use: Denies Family History: Positive family history for diabetes in both parents 10/21/2024: Patient seen in clinic, complains of abdominal pain diffuse, mild in intensity, nonradiating?patient's abdominal pain can be multifactorial considering patient has Crohn's disease, dysfunctional uterine bleeding, status postacute pancreatitis and biliary dyskinesia as evidenced on patient's HIDA scan. Patient reports using dicyclomine for pain management, reports using NSAIDs 1-2 times a week, also has electronic report from [facility] CT scan which is concerning for ovarian cyst, patient continues to complain of dysfunctional uterine bleeding along with significant pain during menstruation, reports heavy cycles. Patient has seen Dr. Ramirez in the past and is requesting follow-up with him. Patient recommended to continue dicyclomine instead of hyoscyamine, educated patient to not use both medications. Educated patient to limit the use of NSAIDs and pain management. Patient instructed to follow-up with gastroenterology at [facility], patient referred to [facility], will order pelvic ultrasound and referred patient to Dr. Espino for further workup of biliary dyskinesia. Will follow-up with patient in 1 month. Review of Systems Review of Systems Systems Reviewed: All systems reviewed, normal except as documented Objective/Exam Other Other exam information: Physical Exam General: Awake and in no acute distress. Conversational and non-toxic appearing. HEENT: Normocephalic, atraumatic, mucous membranes moist. Heart: Regular rate and rhythm, no murmurs. Lungs: Clear to auscultation with no wheezing or crackles. Abdomen: Soft, nondistended, generalized diffuse tenderness, positive bowel sounds. ?No guarding or rebound tenderness. Neurologic: Alert and oriented x3, no gross neurological deficit, and patient able to move all 4 extremities. Extremities: No edema. Skin: No rash or ecchymoses. Assessment & Plan Diagnosis / Problem List (1) Ovarian cyst: Status: Acute Assessment & Plan: Patient had CT scan from [facility] which showed ovarian cyst, there is also concern of endometriosis as patient reports history Patient reports following up with Dr. Ramirez in the past CT scan during hospitalization was unremarkable for ovarian cyst Plan: -Ordered pelvic ultrasound -Referred to [facility] clinic for further follow-up, Dr. Ramirez (2) Abnormal uterine bleeding (AUB): Status: Acute Assessment & Plan: Patient complains of significant bleeding during menstruation, heavy cycles Also complains of pain during menstruation, not managed with conservative measures/NSAIDs Plan: -Follow-up with [facility] for further management -Follow-up pelvic ultrasound (3) Biliary dyskinesia: Status: Acute Assessment & Plan: During hospitalizations patient HIDA scan showed gallbladder ejection fraction of 7% Patient has diffuse abdominal tenderness?can be multifactorial secondary to patient's Crohn disease/AUB/ovarian cyst/status postacute pancreatitis/biliary dyskinesia Plan: -Patient is currently on dicyclomine, reports improvement in pain with use; patient was prescribed hyoscyamine on discharge educated patient to continue dicyclomine and stop hyoscyamine -Referred to general surgery for further workup and possible elective cholecystectomy (4) Hemochromatosis: Status: Acute Assessment & Plan: Patient reports hemochromatosis by history, possibly gene carrier as patient's hemoglobin/iron panel was unremarkable during hospitalization Plan: - Continue to monitor (5) Crohn disease: Status: Acute Assessment & Plan: Patient reports history of Crohn's disease, was diagnosed in 2020 at [facility], follows [facility] Patient did have some flareup during hospitalization Patient only on dicyclomine for management Plan: - Continue dicyclomine -Follow-up with [facility] (6) Encounter for examination following treatment at hospital: Status: Acute Assessment & Plan: Patient seen post hospital discharge, patient discharged on 10/13 for acute pancreatitis. Currently denies any severe abdominal pain, reports mild abdominal pain/tenderness which can be multifactorial. Patient's lipase in ED was 2550, CT abdomen pelvis negative for acute pancreatitis, did have abdominal pain radiating to the back severe intensity, was treated inpatient with IV fluids, bowel rest, was eventually started on liquid diet which was advanced, was seen by general surgery and gastroenterology. Suspected cause of patient's acute pancreatitis biliary sludge, patient did have biliary dyskinesia EF 7% on HIDA scan; otherwise lipid panel unremarkable, no significant alcohol use, no hypercalcemia, no offending drugs. Does have history of Crohn's, patient follows [facility] and hemochromatosis, low suspicion of hemochromatosis, patient possibly a carrier Plan: - Follow-up in 1 month Plan Overall plan: -Obtain pelvic ultrasound -Referred to general surgery, [facility] -Follow-up with [facility] -Follow-up appointment in 1 month -Report to emergency department if severe abdominal pain. Case discussed with Attending Dr. Nagel. Song Jarrett PGY1 Disclaimer: This note was dictated by speech recognition. Minor errors in hard tile setter apprentice may be present due to voice recognition software. Orders: Orders US pelvic complete 10/21/24 N83.209 - Unspecified ovarian cyst, unspecified side Referrals General surgery K82.8 - Other specified diseases of gallbladder [facility] N83.209 - Unspecified ovarian cyst, unspecified side, N93.9 - Abnormal uterine and vaginal bleeding, unspecified Physician Billing TCM TCM: Mod. 7-14 days-CPT [id number] Office Procedures [facility] Level of Care Nursing/Assessment Patient Status: Established Patient Nursing Assessment/Reassessment: Medication Reconciliation, Update PMH in EMR and Vital Signs Coordination of Care: Complex Care and Chronic Disease 1-5, Consent,records obtained, informed consent, Education Simp Pt/Fam, Results/Orders obtained and Staff clarify orders Established Patient Charge Established Patient Point Assignment: 90 Established Patient Point Charge: Level 3 (80-115)
[2024-10-21 15:55] VITALS: BP 112/73; PULSE 74; RESP 14; TEMP 36.6; O2SAT 98; BMI 29.2
== END 2024-10-21 16:31 | disposition home or self-care (01) ==
PROVIDERS: Supervising Provider Internal Medicine
DX: N83.209 Unspecified ovarian cyst, unspecified side (principal); N93.8 Other specified abnormal uterine and vaginal bleeding; K50.90 Crohn's disease, unspecified, without complications; K82.8 Other specified diseases of gallbladder; K85.90 Acute pancreatitis without necrosis or infection, unspecified; E83.119 Hemochromatosis, unspecified
CPT/HCPCS: 99213; G0463

== ENCOUNTER → 2024-10-26 | Outpatient (CLI) | payer MEDICAID, SELFPAY ==
--- NOTE | 2024-10-26 16:00 | XR_ITS ---
Examination: Pelvic ultrasound, transabdominal, complete Technique: Transabdominal ultrasound of the pelvis performed using grayscale imaging Date and time of exam: October 26, 2024 at 1611 hrs. Indications: Pelvic pain beginning 3 months ago Findings: Uterus 8.9 cm endometrial stripe 0.5 cm No uterine mass, no intrauterine gestation Right ovary 3.5 cc arterial flow Left ovary 2.9 cm arterial flow Bilateral ovarian follicles Impression: Negative examination
== END | disposition home or self-care (01) ==
LOC: CDIM 15:59
PROVIDERS: PCP Obstetrics & Gynecology
DX: N83.209 Unspecified ovarian cyst, unspecified side (principal)
CPT/HCPCS: 76856

== ENCOUNTER 2024-11-15 10:53 | Outpatient (AMB) | payer MEDICAID, SELFPAY ==
[2024-11-15 10:57] VITALS: BP 122/74; PULSE 86; RESP 14; TEMP 36.4; O2SAT 98; BMI 29.0
--- NOTE | 2024-11-15 10:57 | AMB.GYNCLNOT ---
Vital Signs 11/15/24 10:57 Height 1.63 m Height Method Stated Weight 77.281 kg Weight Measurement Method Standing Scale BMI 29.0 BP 122/74 Blood Pressure Source Automatic Cuff Blood Pressure Location Left Upper Arm Position Sitting Respiration 14 Pulse 86 Pulse Source Monitor Temp 97.6 F Temp Source Oral Pulse Oximetry (%) 98 Oxygen Delivery Method Room Air Allergies/Home Meds Allergies & Medications Allergies etonogestrel (From Nexplanon) Allergy (Verified 11/25/24 15:15) Headache latex Allergy (Verified 11/25/24 15:15) shrimp Allergy (Verified 11/25/24 15:15) Medication Reconciliation dicyclomine 10 mg capsule 10 mg PO PRN abdominal pain 10/11/24 [History Confirmed 11/25/24] ferrous sulfate 325 mg (65 mg iron) tablet 325 mg PO Q OTHER DAY #30 tabs 10/13/24 [Rx Confirmed 11/25/24] folic acid-vit B6-vit B12 0.8 mg-50 mg-100 mcg tablet 1 tab PO QDAY #30 tabs 10/13/24 [Rx Confirmed 11/25/24] hyoscyamine sulfate 0.125 mg tablet 0.25 mg (2 x 0.125 mg) PO Q8H PRN abdominal pain #30 tabs 10/13/24 [Rx Confirmed 11/25/24] medroxyprogesterone 10 mg tablet 10 mg PO QDAY 21 days #21 tabs 11/15/24 [Rx Confirmed 11/25/24] Intake Visit Data Collection New Patient or Established: Established Patient (seen at 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 1. Little interest or pleasure in doing things: not at all 2. Feeling down, depressed, or hopeless: not at all Total score: 0 PHQ-9 3. Trouble falling or staying asleep, or sleeping too much: Not at all 4. Feeling tired or having little energy: Not at all 5. Poor appetite or overeating: Not at all 6. Feeling bad about yourself - or that you are a failure or have let yourself or your family down: Not at all 7. Trouble concentrating on things, such as reading the newspaper or watching television: Not at all 8. Moving or speaking so slowly that other people could have noticed? - Or the opposite - being so fidgety or restless that you have been moving around a lot more than usual: not at all 9. Thoughts that you would be better off or of hurting yourself in some way: Not at all Total score: 0 Source: Developed by Drs. Keon Combs, Pearl Zapata, Rickey Cruz and colleagues, with an educational jose from [employer]. Depression screen completed yes Social History Living Situation History Marital Status: Lives With: Family Housing: Apartment Tobacco History Smoking Status: Former smoker Second Hand Smoke Exposure: No Alcohol History Alcohol Intake: Current Alcohol Intake Frequency: A Few Times a Month Domestic Abuse History Do You Feel Safe at Home: Yes Past Medical History Past Medical History Have you ever been diagnosed with any of the following: Neurological Problems Cerebrovascular Accident (CVA): No Transient Ischemic Attacks (TIA): No Dementia: No Alzheimer's Disease: No Seizures: No Epilepsy: No Multiple Sclerosis: No Cerebral Palsy: No Migraine: Yes Cardiology Problems Myocardial Infarction: No Cardiac Arrhythmia: Yes Congestive Heart Failure: No Respiratory Problems Chronic Obstructive Pulmonary Disease (COPD): No Asthma: No Bronchitis: No Emphysema: No Pneumonia: No Pulmonary Fibrosis: No Stomache/Intestinal Problems Liver Cancer: No Hepatitis: No Gall Bladder Disease: No Gastrointestinal Bleed: No Esophageal Varices: No Cruz's Esophagus: No Colorectal Cancer: No Irritable Bowel: Yes Crohn's Disease: Yes Obesity: Yes Genital/Urinary Problems Renal Disease: No Prostate Cancer: No Reproductive Problems Breast Cancer: No Previous Pregnancies: Yes Testicular Cancer: No Musculoskeletal Problems Bone Cancer: No Endocrine Problems Diabetes Mellitus Type 1: No Diabetes Mellitus Type 2: No Blood Problems Anemia: Yes Psychologic Problems Anxiety: Yes Depression: Yes Other Problems Hospitalization: No Down Syndrome: No Developmental Delay: No Shingles: No Falls: No Blood Transfusions: No Blood Transfusion Reaction: No Anesthesia Reactions: No Organ Transplant: No Chemotherapy: No Radiation Therapy: No Hyperbaric Therapy: No MRSA: No VRSA: No Vancomycin-Resistant Enterococci: No Human Immunodeficiency Virus (HIV): No Chicken Pox: No Measles: No Mumps: No Rubella (Danish Measles): No Pertussis: No Clostridium Difficile: No Cancer: No Cervical Cancer: No Lung Cancer: No Ovarian Cancer: No History of Present Illness HPI Narrative Ms. 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 She reports experiencing intermenstrual bleeding and postcoital bleeding for the past 2?3 months, which is often associated with pain. Her regular menstrual cycles typically last 3?4 days with minimal discomfort, but she now reports heavy cycles and significant pain during menstruation. Her last menstrual period was on October 19. On October 06, she presented to an emergency department in [place] for evaluation of pelvic pain, where a pelvic ultrasound revealed a left ovarian cyst. Endometriosis was suggested as a possible diagnosis during that visit. The patient was subsequently admitted to [facility] ([facility]) and discharged on October 13, 2024, for management of acute pancreatitis (lipase 2550) and a Crohn?s disease flare. CT scan during admission was negative for acute pancreatitis, but HIDA scan showed an ejection fraction of 7%, suggestive of biliary dyskinesia and possible cholestasis. General Surgery recommended outpatient follow-up. At discharge, the patient was referred to [facility] for menorrhagia and possible endometriosis. She was discharged on hyoscyamine, Dulcolax, and iron supplements. She presented to the clinic on October 21, 2024, with continued complaints of diffuse, mild, non-radiating abdominal pain, which may be multifactorial in the context of Crohn?s disease, recent pancreatitis, biliary dyskinesia, and dysfunctional uterine bleeding. The patient reports use of dicyclomine for pain and NSAIDs 1?2 times weekly. She also provided an electronic [facility] CT scan report confirming an ovarian cyst. She denies history of C-sections, reporting five pregnancies with four living children, all delivered vaginally without complications. She has a history of IBS, occasional alcohol use (1?2 beers/month), and no tobacco or illicit drug use. Family history is positive for diabetes in both parents. She is allergic to etonogestrel, latex, and shrimp. She underwent colonoscopy approximately 6 months ago. She was advised to continue dicyclomine in place of hyoscyamine, to limit NSAID use, and was referred to [facility] for further workup including a pelvic ultrasound. Referral was also made to Dr. Espino for evaluation of biliary dyskinesia. Follow-up in one month is planned. Review of Systems Review of Systems Systems Reviewed: All systems reviewed, normal except as documented Exam General Limitations: no limitations General Appearance: alert, in no apparent distress, comfortable, cooperative, healthy appearing, well developed and well groomed Head Head exam: atraumatic, normocephalic and normal inspection Neck Neck exam: Present normal inspection, full ROM and trachea midline Chest Chest inspection: Present normal inspection and symmetric chest wall rise Abdominal Abdominal exam: Present soft and normal bowel sounds Extremities Extremities exam: Present normal inspection and full ROM Back Back exam: Present normal inspection and full ROM Psych Psychiatric exam: Present normal affect and normal mood Skin Skin exam: Present warm, dry, intact and normal color Assessment & Plan Diagnosis / Problem List (1) Pelvic pain: Status: Inactive Plan: Suspected Endometriosis Patient presents with new onset pelvic pain, pressure, and irregular bleeding for the past 2-3 months, including post-coital bleeding. Recent ultrasound in [place] showed a left ovarian cyst, but current ultrasound (October 26) is normal with no cysts visible. The disappearance of the cyst between ultrasounds suggests a possible hemorrhagic cyst, which can be associated with endometriosis. Patient has a history of 5 pregnancies with 4 live births, all vaginal deliveries. Current ultrasound shows normal uterine size (8.9 cm), thin endometrial stripe (0.5 cm), and normal ovaries with follicles present. Given the cyclical nature of symptoms, pain with intercourse, and irregular bleeding, endometriosis is suspected. However, definitive diagnosis requires laparoscopy, which is not currently indicated due to improvement in symptoms. - Prescribe progesterone for symptomatic treatment and cycle regulation - Start medication on 2nd day of menstrual cycle, continue for 21 days, then stop for 7 days - Repeat this regimen for 3 months - Follow up in 3 months to assess symptom improvement - Patient to track menstrual cycles - Return sooner if pain or bleeding worsens - Cancel upcoming appointment on November 21 Irritable Bowel Syndrome (IBS) Patient reports a history of IBS. This condition is taken into consideration when prescribing medication for suspected endometriosis. - Ensure prescribed progesterone is safe for use with IBS (2) Endometriosis: Status: Acute Office Procedures OB Clinic LOC & Office Proc's Nursing/Assessment Patient Status: Established Patient OB Clinic Nursing Assessment: Medication Reconciliation, Update PMH in EMR and Vital Signs OB Clinic Coordination of Care: Complex Care and Chronic Disease 1-5, Consent,records obtained, informed consent, Education Simp Pt/Fam, Lab and Imaging orders, Results/Orders obtained and Staff clarify orders Established Patient Charge Established Patient Point Assignment: 105 Established Patient Point Charge: EP Level 3 (80-115)
== END 2024-11-15 11:12 | disposition home or self-care (01) ==
LOC: HODSOBC 10:53
PROVIDERS: PCP Obstetrics & Gynecology; Referring Provider Obstetrics & Gynecology; Supervising Provider Obstetrics & Gynecology; Visit Provider Obstetrics & Gynecology
DX: R10.2 Pelvic and perineal pain (principal); N80.9 Endometriosis, unspecified; K58.9 Irritable bowel syndrome, unspecified
CPT/HCPCS: 99213; G0463

== ENCOUNTER 2024-11-25 15:09 | Outpatient (AMB) | payer MEDICAID, SELFPAY ==
[2024-11-25 15:14] VITALS: PULSE 84; RESP 16; TEMP 36.2; O2SAT 97
--- NOTE | 2024-11-25 15:14 | PD.RESCLINIC ---
Vital Signs 11/25/24 15:14 Height 1.63 m Height Method Stated Blood Pressure Source Automatic Cuff Blood Pressure Location Left Upper Arm Position Sitting Respiration 16 Pulse 84 Pulse Source Monitor Temp 97.2 F Temp Source Temporal Artery Scan Pulse Oximetry (%) 97 Oxygen Delivery Method Room Air Allergies/Meds Allergies & Medications Allergies etonogestrel (From Nexplanon) Allergy (Verified 11/25/24 15:15) Headache latex Allergy (Verified 11/25/24 15:15) shrimp Allergy (Verified 11/25/24 15:15) Medication Reconciliation dicyclomine 10 mg capsule 10 mg PO PRN abdominal pain 10/11/24 [History Confirmed 11/25/24] ferrous sulfate 325 mg (65 mg iron) tablet 325 mg PO Q OTHER DAY #30 tabs 10/13/24 [Rx Confirmed 11/25/24] folic acid-vit B6-vit B12 0.8 mg-50 mg-100 mcg tablet 1 tab PO QDAY #30 tabs 10/13/24 [Rx Confirmed 11/25/24] hyoscyamine sulfate 0.125 mg tablet 0.25 mg (2 x 0.125 mg) PO Q8H PRN abdominal pain #30 tabs 10/13/24 [Rx Confirmed 11/25/24] medroxyprogesterone 10 mg tablet 10 mg PO QDAY 21 days #21 tabs 11/15/24 [Rx Confirmed 11/25/24] MA Intake Visit Data Collection New Patient or Established: Established Patient (seen at [facility] within 3 years) Seen by Clinical Staff ONLY (RN/MA): No Pain Present Currently: No Pain scale:: 0 Pain Scale Used: [place]/Numerical Tassel Clipper Required: No PCP or OBGYN visit in last 3 months: No Hx Now: No Do You Feel Safe at Home: Yes Authorities Contacted: N/A Smoking Status Smoking Status: Former smoker Immunization / Flu Flu Vaccine in the Last 12 Months: No Flu Vaccine Exclusion Criteria: No Exclusion Criteria Past Medical History Past Medical History NEUROLOGIC: Positive Neurological Disorders and Migraine; Negative Cerebrovascular Accident, Transient Ischemic Attacks (TIA), Dementia, Alzheimer's Disease, Seizures, Epilepsy, Multiple Sclerosis or Cerebral Palsy CARDIAC: Positive Cardiac Disorders and Cardiac Arrhythmia; Negative Myocardial Infarction or Congestive Heart Failure RESPIRATORY: Negative Chronic Obstructive Pulmonary Disease (COPD), Asthma, Bronchitis, Emphysema, Pneumonia or Pulmonary Fibrosis GASTROINTESTINAL: Positive Gastrointestinal Disorders, Irritable Bowel, Crohn's Disease and Obesity; Negative Liver Cancer, Hepatitis, Gall Bladder Disease, Gastrointestinal Bleed, Esophageal Varices, Cruz's Esophagus or Colorectal Cancer GENITOURINARY: Positive Genitourinary Disorders; Negative Renal Disease or Prostate Cancer REPRODUCTIVE: Positive Previous Pregnancies; Negative Breast Cancer or Testicular Cancer MUSCULOSKELETAL: Negative Bone Cancer ENDOCRINE: Negative Endocrine Disorders, Diabetes Mellitus Type 1 or Diabetes Mellitus Type 2 HEMATOLOGIC: Positive Blood Disorders and Anemia PSYCHO/SOCIAL: Positive Anxiety and Depression OTHER HISTORY: Negative Hospitalization, Down Syndrome, Developmental Delay, Shingles, Falls, Blood Transfusions, Blood Transfusion Reaction, Anesthesia Reactions, Organ Transplant, Chemotherapy, Radiation Therapy, Hyperbaric Therapy, MRSA, VRSA, Vancomycin-Resistant Enterococci, Human Immunodeficiency Virus (HIV), Chicken Pox, Measles, Mumps, Rubella (Wolof Measles), Pertussis, Clostridium Difficile, Cancer, Breast Cancer, Cervical Cancer, Colorectal Cancer, Lung Cancer, Ovarian Cancer, Prostate Cancer or Testicular Cancer Family History FAMILY HISTORY: Negative Family Psychiatric Problems, Family Respiratory Disorders, Family Cardiac Disorders, Family Gastrointestinal Problems, Family Cancer, Family Surgery or Family Anesthesia Reaction Surgical History SURGICAL: Negative Abdominal Surgery, Nephrectomy, Joint Replacement, Section or Organ Transplant Social History SMOKING STATUS: Smoking status: Former smoker SECOND HAND EXPOSURE: second hand exposure: No ALCOHOL: Alcohol Intake: Current ALCOHOL FREQUENCY: Alcohol Intake Frequency: A Few Times a Month HOUSING: Housing: Apartment LIVES WITH: Lives With: Children, Family and Spouse Patient Portal Questionaires PHQ-9 PHQ-2 Over the last 2 weeks, how often have you been bothered by any of the following problems? 1. Little interest or pleasure in doing things: not at all PHQ-9 8. Moving or speaking so slowly that other people could have noticed? - Or the opposite - being so fidgety or restless that you have been moving around a lot more than usual: not at all Source: Developed by Drs. Keon Combs, Pearl Zapata, Rickey Cruz and colleagues, with an educational jose from [employer]. Social History Living Situation History Lives With: Family Housing: Apartment Tobacco History Smoking Status: Former smoker Second Hand Smoke Exposure: No Alcohol History Alcohol Intake: Current Alcohol Intake Frequency: A Few Times a Month Domestic Abuse History Do You Feel Safe at Home: Yes Review of Systems Report any current symptoms Only answer those that you have currently: Past Medical History Past Medical History Have you ever been diagnosed with any of the following: Neurological Problems Cerebrovascular Accident (CVA): No Transient Ischemic Attacks (TIA): No Dementia: No Alzheimer's Disease: No Seizures: No Epilepsy: No Multiple Sclerosis: No Cerebral Palsy: No Migraine: Yes Cardiology Problems Myocardial Infarction: No Cardiac Arrhythmia: Yes Congestive Heart Failure: No Respiratory Problems Chronic Obstructive Pulmonary Disease (COPD): No Asthma: No Bronchitis: No Emphysema: No Pneumonia: No Pulmonary Fibrosis: No Stomache/Intestinal Problems Liver Cancer: No Hepatitis: No Gall Bladder Disease: No Gastrointestinal Bleed: No Esophageal Varices: No Cruz's Esophagus: No Colorectal Cancer: No Irritable Bowel: Yes Crohn's Disease: Yes Obesity: Yes Genital/Urinary Problems Renal Disease: No Reproductive Problems Breast Cancer: No Previous Pregnancies: Yes Musculoskeletal Problems Bone Cancer: No Endocrine Problems Diabetes Mellitus Type 1: No Diabetes Mellitus Type 2: No Blood Problems Anemia: Yes Psychologic Problems Anxiety: Yes Depression: Yes Other Problems Hospitalization: No Down Syndrome: No Developmental Delay: No Shingles: No Falls: No Blood Transfusions: No Blood Transfusion Reaction: No Anesthesia Reactions: No Organ Transplant: No Chemotherapy: No Radiation Therapy: No Hyperbaric Therapy: No MRSA: No VRSA: No Vancomycin-Resistant Enterococci: No Human Immunodeficiency Virus (HIV): No Chicken Pox: No Measles: No Mumps: No Rubella (Wolof Measles): No Pertussis: No Clostridium Difficile: No Cancer: No Cervical Cancer: No Lung Cancer: No Ovarian Cancer: No History of Present Illness HPI Narrative Ms. Serg Gutierrez is a 29-year-old female with past medical history of ulcerative colitis and ? Hematochromatosis gene carrier who presented to [facility] academic health clinic on 10/21/2024 after being discharged from [facility] on 10/13/2024 for acute pancreatitis and ulcerative colitis flareup. Patient initially presented to emergency department with lipase of 2550 and left-sided abdominal pain radiating to the back CT scan was negative for acute pancreatitis. Patient reported that she was diagnosed with Crohn's disease in 2020 and has been following with GI at [facility] for further management. With the progression of hospital stay patient was found to have ejection fraction of 7% on HIDA scan due to concern of cholestasis. General surgery consulted during hospitalization recommended outpatient follow-up. On discharge patient was recommended to follow-up with [facility] for menorrhagia workup and suspicion of endometriosis. Patient was discharged on hyoscyamine as needed, Dulcolax as needed and iron tablets. PMH: Positive for Crohn's disease and hemochromatosis PSHx: Colonoscopy about 6 months ago Allergies: Etonogestrel, latex, shrimp Social history: -Smoking: Denies -Alcohol Use: Occasional alcohol use, reports drinking about 1-2 beers in a month -Illicit Drug Use: Denies Family History: Positive family history for diabetes in both parents 10/21/2024: Patient seen in clinic, complains of abdominal pain diffuse, mild in intensity, nonradiating?patient's abdominal pain can be multifactorial considering patient has Crohn's disease, dysfunctional uterine bleeding, status postacute pancreatitis and biliary dyskinesia as evidenced on patient's HIDA scan. Patient reports using dicyclomine for pain management, reports using NSAIDs 1-2 times a week, also has electronic report from [facility] CT scan which is concerning for ovarian cyst, patient continues to complain of dysfunctional uterine bleeding along with significant pain during menstruation, reports heavy cycles. Patient has seen Dr. Ramirez in the past and is requesting follow-up with him. Patient recommended to continue dicyclomine instead of hyoscyamine, educated patient to not use both medications. Educated patient to limit the use of NSAIDs and pain management. Patient instructed to follow-up with gastroenterology at [facility], patient referred to [facility], will order pelvic ultrasound and referred patient to Dr. Espino for further workup of biliary dyskinesia. Will follow-up with patient in 1 month. 11/25/2024: Patient seen in clinic for follow-up visit, reports that she had flexible sigmoidoscopy performed at [facility], patient does report with her, report impression: - Diffuse moderate inflammation was found in the rectum secondary to left-sided ulcerative colitis, biopsied. - Normal mucosa in sigmoid colon and in the descending colon. Biopsied. - Moderately active (Persaud score 2) ulcerative colitis, worsened since the last examination. - 30F with ulcerative proctitis with moderate inflammation in the distal 15 cm of the rectum. This is despite p.o. and rectal mesalamine. Report recommendations stated recommending escalating therapy to biologic?given moderate inflammation and isolated proctitis, gastroenterology recommended S1 P?Etrasimod versus ozanimod. Per GI patient will need EKG, quant gold, hep B serology and varicella titers. They recommended using Cortenema 1 per rectum daily. Patient said that she is in the process of getting varicella titers, and hep B serology. Patient does report history of palpitations, reported was never seen by shake feeder. Considering patient is starting biological agents, will refer patient to shake feeder. Otherwise patient was seen by [facility] outpatient and has established care. Patient saw Dr. Espino outpatient, who recommended that patient should not get surgery for now. Patient is otherwise stable, will follow-up with clinic in 3 months. Review of Systems Review of Systems Systems Reviewed: All systems reviewed, normal except as documented Objective/Exam Other Other exam information: Physical Exam General: Awake and in no acute distress. Conversational and non-toxic appearing. HEENT: Normocephalic, atraumatic, mucous membranes moist. Heart: Regular rate and rhythm, no murmurs. Lungs: Clear to auscultation with no wheezing or crackles. Abdomen: Soft, nondistended, generalized diffuse tenderness, positive bowel sounds. ?No guarding or rebound tenderness. Neurologic: Alert and oriented x3, no gross neurological deficit, and patient able to move all 4 extremities. Extremities: No edema. Skin: No rash or ecchymoses. Assessment & Plan Diagnosis / Problem List (1) Palpitation: Status: Acute Assessment & Plan: Patient does report history of palpitations, reported was never seen by shake feeder. Considering patient is starting biological agents, will refer patient to shake feeder. Plan: - Referred to shake feeder Dr. Reg Go - Follow-up in 3 months or as needed (2) Ulcerative colitis: Status: Acute Assessment & Plan: Patient initially reported that she was diagnosed with Crohn's disease, however was seen by gastroenterology at [facility] recently. Patient has confirmed diagnosis of ulcerative colitis. Had flexible sigmoidoscopy performed at [facility] (11/16/2024), patient does report with her, report impression: - Diffuse moderate inflammation was found in the rectum secondary to left-sided ulcerative colitis, biopsied. - Normal mucosa in sigmoid colon and in the descending colon. Biopsied. - Moderately active (Persaud score 2) ulcerative colitis, worsened since the last examination. - 29F with ulcerative proctitis with moderate inflammation in the distal 15 cm of the rectum. This is despite p.o. and rectal mesalamine. Report recommendations stated recommending escalating therapy to biologic?given moderate inflammation and isolated proctitis, gastroenterology recommended S1 P?Etrasimod versus ozanimod. Per GI patient will need EKG, quant gold, hep B serology and varicella titers. They recommended using Cortenema 1 per rectum daily. Patient said that she is in the process of getting varicella titers, and hep B serology. Plan: - Continue to follow-up with gastroenterology at [facility] - Referred to cardiology considering patient will be started on ozanimod. - Continue to use dicyclomine as needed (3) Biliary dyskinesia: Status: Acute Assessment & Plan: During hospitalizations patient HIDA scan showed gallbladder ejection fraction of 7% Patient has diffuse abdominal tenderness?can be multifactorial secondary to patient's Crohn disease/AUB/ovarian cyst/status postacute pancreatitis/biliary dyskinesia Plan: - Continue dicyclomine. - Patient saw Dr. Espino outpatient, who recommended that patient should not get surgery for now. (4) Pelvic pain: Assessment & Plan: Suspected Endometriosis Patient suspected to have hemorrhagic cyst of ovary, possible underlying endometriosis Patient has history of 5 pregnancies with 4 live births, all vaginal deliveries. Plan: - Continue to follow-up with [facility] - Continue medications as prescribed by [facility] Plan Case discussed with Attending Dr. Nagel. Song Jarrett PGY1 Disclaimer: This note was dictated by speech recognition. Minor errors in canning machine operator may be present due to voice recognition software. Orders: Referrals Cardiology R00.2 - Palpitations Physician Billing Established Patient Established Patient: E/M Level 3-CPT 29705 Office Procedures [facility] Level of Care Nursing/Assessment Patient Status: Established Patient Nursing Assessment/Reassessment: Medication Reconciliation, Update PMH in EMR and Vital Signs Coordination of Care: Complex Care and Chronic Disease 1-5, Consent,records obtained, informed consent, Education Simp Pt/Fam and Staff clarify orders Established Patient Charge Established Patient Point Assignment: 85 Established Patient Point Charge: Level 3 (80-115)
== END 2024-11-25 15:44 | disposition home or self-care (01) ==
LOC: HODAHC 15:09
PROVIDERS: Supervising Provider Student in an Organized Health Care Education/Training Program; Visit Provider Internal Medicine
DX: R00.2 Palpitations (principal); K51.50 Left sided colitis without complications; K82.8 Other specified diseases of gallbladder; R10.2 Pelvic and perineal pain
CPT/HCPCS: 99213; G0463

== ENCOUNTER 2025-02-14 15:32 | Outpatient (AMB) | payer MEDICAID, SELFPAY ==
[2025-02-14 15:52] VITALS: BP 117/73; PULSE 71; RESP 17; TEMP 36.6; O2SAT 98; BMI 29.0
--- NOTE | 2025-02-14 15:52 | GYNCLNT_ITS ---
Vital Signs 02/14/25 15:52 Height 1.63 m Height Method Measured Weight 76.657 kg Weight Measurement Method Standing Scale BMI 29.0 BP 117/73 Blood Pressure Source Automatic Cuff Blood Pressure Location Right Upper Arm Position Sitting Respiration 17 Pulse 71 Pulse Source Monitor Temp 97.8 F Temp Source Temporal Artery Scan Pulse Oximetry (%) 98 Oxygen Delivery Method Room Air Allergies/Home Meds Allergies & Medications Allergies etonogestrel (From Munax) Allergy (Verified 04/10/25 15:29) Headache latex Allergy (Verified 04/10/25 15:29) shrimp Allergy (Verified 04/10/25 15:29) Medication Reconciliation L norgest/E estradiol-E estrad 0.15 mg-30 mcg (84)/10 mcg(7) tabs,3mos (Amethia) 1 tab PO QDAY 84 days #84 tabs 02/14/25 [Rx Confirmed 04/10/25] prednisone 20 mg tablet 20 mg PO QDAY 02/20/25 [History Confirmed 04/10/25] Intake Visit Data Collection New Patient or Established: Established Patient (seen at [facility] within 3 years) Reason for Visit:: 3 MONTH FOLLOW UP Consent obtained for Telemed Visit: No Seen by Clinical Staff ONLY (RN/MA): No Vamp Throater Required: No Do You Feel Safe at Home: Yes Authorities Contacted: N/A PCP or OBGYN visit in last 3 months: Yes Date of Last PCP or OBGYN visit: 11/25/24 Hx Now: No Are you currently on any form of Control: No Pain Present Currently: Yes Pain scale:: 5 Smoking Status Smoking Status: Former smoker External Relations Manager history External Relations Manager History Menstrual regularity: irregular Flow: heavy Monthly: No How many days does period last: 5 Age at menarche: 12 Menopausal: No Currently sexually active: Yes INVENTORY CONTROLLER: Past Medical History Past Medical History: Yes Hx Neurological Disorders, No Hx Breast Cancer, Yes Hx Cardiac Disorders, No Hx Cancer, Yes Hx Blood Disorders, Yes Hx Anemia, Yes Hx Gastrointestinal Disorders, No Hx Renal Disease, No Hx Diabetes Mellitus Type 1 and No Hx Diabetes Mellitus Type 2 Questionnaires Covid-19 Vaccine Questionnaire Has patient been vacinated for Covid-19 Have you been vacinated for Covid-19: Yes PHQ-9 PHQ-2 Over the last 2 weeks, how often have you been bothered by any of the following problems? 1. Little interest or pleasure in doing things: not at all 2. Feeling down, depressed, or hopeless: not at all Total score: 0 PHQ-9 3. Trouble falling or staying asleep, or sleeping too much: Not at all 4. Feeling tired or having little energy: Not at all 5. Poor appetite or overeating: Not at all 6. Feeling bad about yourself - or that you are a failure or have let yourself or your family down: Not at all 7. Trouble concentrating on things, such as reading the newspaper or watching television: Not at all 8. Moving or speaking so slowly that other people could have noticed? - Or the opposite - being so fidgety or restless that you have been moving around a lot more than usual: not at all 9. Thoughts that you would be better off or of hurting yourself in some way: Not at all Total score: 0 If you checked off any problems, how difficult have these problems made it for you to do your work, take care of things at home, or get along with other people?: not difficult at all Source: Developed by Drs. Keon Combs, Pearl Zapata, Rickey Cruz and colleagues, with an educational jose from [employer]. Depression screen completed yes Social History Living Situation History Lives With: Family Housing: Apartment Tobacco History Smoking Status: Former smoker Second Hand Smoke Exposure: No Alcohol History Alcohol Intake: Current Alcohol Intake Frequency: A Few Times a Month Domestic Abuse History Do You Feel Safe at Home: Yes History of Present Illness HPI Narrative Patient reports that the previously prescribed progesterone for endometriosis symptom management and cycle regulation has been effective overall. However, she experienced a heavier menstrual flow lasting 10 days in the past month, while the previous two months were fine. She has been adhering to the prescribed regimen, starting the medication on the second day of her cycle for 21 days, followed by a 7-day break. Matt mentions new concerns about a possible urinary tract infection. She describes pain in her lower abdomen and during intercourse. She reports burning sensation while urinating and the presence of blood in her urine. She denies any fever. She had visited a clinic ([facility]) for these symptoms but states no treatment was provided at that time. The patient also reports ongoing issues with her gallbladder. She experienced pain for two consecutive days, which has since improved somewhat. She mentions having gallstones but states that doctors have not recommended removal of her gallbladder. Additionally, Matt discloses that she has been taken off work due to her medical issues and is expected to return in March. Regarding her ulcerative colitis, Matt reports being on prednisone, which was increased to 50 mg due to flare-ups. She expresses concern about weight fluctuations and swelling, which she attributes to the prednisone and another medication called supposia (possibly sulfasalazine). She is a 29-year-old 5 para 3 female with a history of ulcerative colitis and possible hemochromatosis. She was recently hospitalized on February 10, 2025, for acute pancreatitis and ulcerative colitis follow-up. Her medical history includes acute pancreatitis, ulcerative colitis, endometriosis, chronic pelvic pain, cholangitis/cholecystitis diagnosed based on HIDA scan, biliary dyskinesia, and gallstones. She is taking progesterone for symptomatic treatment of endometriosis and cycle regulation, hyoscyamine with reported side effects, and prednisone with reports of swelling. She is sexually active and reports pain during intercourse. Exam General General Appearance: alert, in no apparent distress and healthy appearing Head Head exam: atraumatic Neck Neck exam: Present normal inspection and trachea midline Chest Chest inspection: Present normal inspection and symmetric chest wall rise External exam: Present normal external exam; Absent tenderness Neuro Neurological exam: Present oriented X3 Psych Psychiatric exam: Present normal affect and normal mood Office Procedures OB Clinic LOC & Office Proc's Nursing/Assessment Patient Status: Established Patient OB Clinic Nursing Assessment: Medication Reconciliation, Update PMH in EMR and Vital Signs OB Clinic Coordination of Care: Complex Care and Chronic Disease 1-5, Consent,records obtained, informed consent and 4+ Authorizations needed Established Patient Charge Established Patient Point Assignment: 85 Established Patient Point Charge: EP Level 3 (80-115) Assessment & Plan Diagnosis / Problem List (1) Endometriosis: Status: Acute (2) Abnormal uterine and vaginal bleeding, unspecified: Status: Acute (3) Biliary dyskinesia: Status: Acute Plan Endometriosis and Chronic Pelvic Pain: - Patient reports improvement with progesterone, but recent menstrual cycle was heavy and lasted 10 days. - Overall feeling better with less pain and discomfort. - Consider low-dose combination hormone therapy for extended cycle regimen. Plan: - Discontinue previous progesterone regimen. - Start low-dose combination hormone therapy (84 days on, 6 days off). - Continue for 2 cycles (approximately 6 months). - Follow up in 3 months. - Monitor for side effects, particularly weight gain or fluid retention. Suspected Urinary Tract Infection: - Patient reports dysuria, hematuria, and pain during intercourse. - No fever reported. - Previous evaluation noted burning sensation, but no treatment provided. Plan: - Prescribe short course of antibiotics. - Patient to follow through with scheduled cystoscopy in [place]. Gallbladder Disease: - History of cholangitis/cholecystitis diagnosed by HIDA scan. - Recent hospitalization for acute pancreatitis with elevated lipase of 2500. - Patient reports recurrent pain. - Presence of gallstones confirmed. - Limiting treatment options for endometriosis due to potential liver complications. Plan: - Place urgent referral to Dr. Bates (colorectal surgeon) for evaluation and possible cholecystectomy. - Emphasize need for evaluation before patient returns to work in March. Ulcerative Colitis: - Currently on prednisone therapy, increased up to 50 mg due to flare-ups. - Patient reports significant weight loss and desires to reduce prednisone dose. - Prolonged use of high-dose steroids is concerning. Plan: - Recommend establishing care with Dr. Bravo at [facility] or Dr. Josse Murphy at [facility]. - Consider alternative treatments to reduce reliance on high-dose steroids.
== END 2025-02-14 16:09 | disposition home or self-care (01) ==
LOC: HODSOBC 15:32
PROVIDERS: PCP Obstetrics & Gynecology; Referring Provider Obstetrics & Gynecology; Supervising Provider Obstetrics & Gynecology; Visit Provider Obstetrics & Gynecology
DX: N80.9 Endometriosis, unspecified (principal); N93.9 Abnormal uterine and vaginal bleeding, unspecified; K82.8 Other specified diseases of gallbladder; K51.90 Ulcerative colitis, unspecified, without complications; R30.0 Dysuria; R31.9 Hematuria, unspecified; N94.10 Unspecified dyspareunia; Z87.891 Personal history of nicotine dependence; Z91.040 Latex allergy status; Z88.8 Allergy status to other drugs, medicaments and biological substances
CPT/HCPCS: 99213; G0463

== ENCOUNTER 2025-02-20 09:53 | Outpatient (AMB) | payer MEDICAID, SELFPAY ==
[2025-02-20 10:01] VITALS: BP 111/78; PULSE 74; RESP 18; TEMP 36.6; O2SAT 98; BMI 29.4
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
== END 2025-02-20 10:16 | disposition home or self-care (01) ==
LOC: HODSRG 09:53
PROVIDERS: PCP Obstetrics & Gynecology; Referring Provider Obstetrics & Gynecology; Supervising Provider Surgery; Visit Provider Surgery
DX: K82.8 Other specified diseases of gallbladder (principal)
CPT/HCPCS: 99213; G0463

== ENCOUNTER 2025-04-10 15:23 | Outpatient (AMB) | payer MEDICAID, SELFPAY ==
[2025-04-10 15:28] VITALS: BP 108/68; PULSE 84; RESP 16; TEMP 36.4; O2SAT 98; BMI 28.6
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
== END 2025-04-10 15:43 | disposition home or self-care (01) ==
LOC: HODSRG 15:23
PROVIDERS: PCP Obstetrics & Gynecology; Referring Provider Obstetrics & Gynecology; Supervising Provider Surgery; Visit Provider Surgery
DX: K82.8 Other specified diseases of gallbladder (principal); E66.9 Obesity, unspecified; Z68.28 Body mass index [BMI] 28.0-28.9, adult
CPT/HCPCS: 99213; G0463

== ENCOUNTER 2025-05-23 12:18 | Emergency (ER) | payer MEDICAID, SELFPAY ==
[2025-05-23 12:37] VITALS: BP 128/81; PULSE 71; RESP 16; TEMP 36.8; O2SAT 98; BMI 29.4
--- NOTE | 2025-05-23 12:42 | XR_ITS ---
Examination: Pelvic ultrasound, transabdominal, complete Technique: Transabdominal ultrasound of the pelvis performed using grayscale imaging Date and time of exam: May 23, 2025, 1317 hours INDICATIONS: Pelvic and lower back pain onset today. FINDINGS: Uterus 6.5 cm endometrial stripe 0.3 cm No uterine mass or intrauterine gestation Right ovary 3.0 cm arterial flow. Left ovary 3.5 cm arterial flow 11 mm follicular cyst IMPRESSION: Negative examination
--- NOTE | 2025-05-23 12:46 | XR_ITS ---
EXAMINATION: Lumbar spine 3 views TECHNIQUE: AP lateral: Lateral lower lumbar spine 3 views Date and time: May 23, 2025, 1503 hours INDICATIONS: Low back pain several days FINDINGS: Alignment lumbar vertebral bodies on the lateral view No lumbar fracture Moderate lumbar spondylosis No significant lumbar disc narrowing IMPRESSION: No lumbar fracture or significant lumbar disc narrowing
--- NOTE | 2025-05-23 12:46 | EDNOTE_ITS ---
<Statement entered by Audrey Sawyer MD - 05/23/25 15:59> As co-signing physician, I was present and available for consult prn. I concur with the plan and care as documented by the midlevel provider. ED Female Urogenital RME/HPI General Chief complaint: Abdominal Pain Stated complaint: LOWER ABD/LOWER BACK PAIN Time Seen by Provider: 05/23/25 12:34 Source: patient Arrival date/time: 05/23/25 12:18 29-year-old female with no known medical history presents to the emergency room with a chief complaint of lower abdominal and lower back pain x 1 day Mode of arrival: ambulatory Limitations: no limitations Related Data Home Medications ?Medication ?Instructions ?Recorded ?Confirmed prednisone 20 mg tablet 20 mg PO QDAY 02/20/2504/10 Previous Rx's ?Medication ?Instructions ?Recorded L norgest/E estradiol-E estrad 1 tab PO QDAY 84 days # 84 tabs 02/14/25 0.15 mg-30 mcg (84)/10 mcg(7) tabs,3mos (Amethia) Allergies Allergy/AdvReac Type Severity Reaction Status Date / Time etonogestrel (From Nexplanon) Allergy Headache Verified 05/23/25 12:22 latex Allergy Verified 05/23/25 12:22 shrimp Allergy Verified 05/23/25 12:22 Review of Systems Review of Systems Systems Reviewed: All systems reviewed, normal except as documented Constitutional Constitutional: Reports system reviewed and no additional complaints, except as documented, Denies fatigue, Denies fever(s), Denies headache(s) and Denies weakness Eyes Eyes: Reports system reviewed and no additional complaints, except as documented, Denies blurry vision and Denies change in vision ENT Ears, Nose, Mouth, and Throat: Reports system reviewed and no additional complaints, except as documented, Denies otalgia, Denies headache(s), Denies nasal congestion, Denies throat swelling and Denies vertigo Cardiovascular Cardiovascular: Reports system reviewed and no additional complaints, except as documented, Denies chest pain, Denies dyspnea and Denies dyspnea on exertion Respiratory Respiratory: Reports system reviewed and no additional complaints, except as documented, Denies chest congestion, Denies cough, Denies dyspnea, Denies dyspnea on exertion and Denies wheezing Gastrointestinal Gastrointestinal: Reports system reviewed and no additional complaints, except as documented, Reports abdominal pain, Reports cramping, Denies nausea and Denies vomiting Genitourinary Genitourinary: Reports system reviewed and no additional complaints, except as documented and Reports pelvic pain Musculoskeletal Musculoskeletal: Reports system reviewed and no additional complaints, except as documented and Denies back pain Integumentary/Breasts Skin/Breast: Reports system reviewed and no additional complaints, except as documented and Denies wounds Neurologic Neurologic: Reports system reviewed and no additional complaints, except as documented, Denies confusion, Denies headache(s), Denies lack of coordination, Denies vertigo and Denies weakness Psychiatric Psychiatric: Reports system reviewed and no additional complaints, except as documented, Denies anxiety, Denies confusion, Denies depression, Denies paranoia, Denies suicidal ideation and Denies tactile hallucinations Endocrine Endocrine: Reports system reviewed and no additional complaints, except as documented and Denies fatigue Hematologic/Lymphatic Hematologic/Lymphatic: Reports system reviewed and no additional complaints, except as documented and Denies lymphadenopathy Allergic/Immunologic Allergic/Immunologic: Reports system reviewed and no additional complaints, except as documented, Denies throat swelling, Denies urticaria and Denies wheezing Past Medical History Past Medical History NEUROLOGIC: Positive Neurological Disorders and Migraine; Negative Cerebrovascular Accident, Transient Ischemic Attacks (TIA), Dementia, Alzheimer's Disease, Seizures, Epilepsy, Multiple Sclerosis or Cerebral Palsy CARDIAC: Positive Cardiac Disorders and Cardiac Arrhythmia; Negative Myocardial Infarction or Congestive Heart Failure RESPIRATORY: Negative Chronic Obstructive Pulmonary Disease (COPD), Asthma, Bronchitis, Emphysema, Pneumonia or Pulmonary Fibrosis GASTROINTESTINAL: Positive Gastrointestinal Disorders, Irritable Bowel, Crohn's Disease and Obesity; Negative Liver Cancer, Hepatitis, Gall Bladder Disease, Gastrointestinal Bleed, Esophageal Varices, Cruz's Esophagus or Colorectal Cancer GENITOURINARY: Positive Genitourinary Disorders; Negative Renal Disease or Prostate Cancer REPRODUCTIVE: Positive Previous Pregnancies; Negative Breast Cancer or Testicular Cancer MUSCULOSKELETAL: Negative Musculoskeletal Disorders or Bone Cancer ENDOCRINE: Negative Endocrine Disorders, Diabetes Mellitus Type 1 or Diabetes Mellitus Type 2 HEMATOLOGIC: Positive Blood Disorders and Anemia PSYCHO/SOCIAL: Positive Anxiety and Depression OTHER HISTORY: Negative Hospitalization, Autoimmune Disease, Down Syndrome, Developmental Delay, Shingles, Falls, Blood Transfusions, Blood Transfusion Reaction, Anesthesia Reactions, Organ Transplant, Chemotherapy, Radiation Therapy, Hyperbaric Therapy, MRSA, VRSA, Vancomycin-Resistant Enterococci, Human Immunodeficiency Virus (HIV), Chicken Pox, Measles, Mumps, Rubella (Lao Measles), Pertussis, Clostridium Difficile, Cancer, Breast Cancer, Cervical C ancer, Colorectal Cancer, Lung Cancer, Ovarian Cancer, Prostate Cancer or Testicular Cancer Family History FAMILY HISTORY: Negative Family Psychiatric Problems, Family Respiratory Disorders, Family Cardiac Disorders, Family Gastrointestinal Problems, Family Cancer, Family Surgery or Family Anesthesia Reaction Surgical History SURGICAL: Negative Abdominal Surgery, Nephrectomy, Joint Replacement, Section or Organ Transplant Social History SMOKING STATUS: Never smoker SECOND HAND EXPOSURE: No SUBSTANCE USE: does not use ED Exam General Limitations: Present no limitations General appearance: Present alert and in no apparent distress Head Head exam: Present atraumatic Eye Eye exam: Present normal appearance, PERRL and EOMI ENT ENT exam: Present normal exam, normal oropharynx and mucous membranes moist Neck Neck exam: Present normal inspection, full ROM and trachea midline Chest Chest inspection: Present normal inspection and symmetric chest wall rise Respiratory Respiratory exam: Present normal lung sounds bilaterally Cardiovascular Cardiovascular exam: Present regular rate, normal rhythm and normal heart sounds Abdominal Exam Abdominal exam: Present soft and normal bowel sounds Extremities Exam Extremities exam: Present normal inspection and full ROM Back Exam Back exam: Present normal inspection and full ROM Neurological Exam Neurological exam: Present alert, oriented X3 and CN II-XII intact Psychiatric Psychiatric exam: Present normal affect and normal mood Skin Skin exam: Present warm, dry, intact and normal color Course Quality Measures none Orders Category Date Time Status US pelvic complete Stat Exams 05/23/25 12:42 Completed XR lumbar spine 2-3V Stat Exams 05/23/25 12:46 Completed CBC Stat Lab 05/23/25 12:53 Completed CMP [Comprehensive Metabolic Panel] Stat Lab 05/23/25 12:53 Completed HCG Qualitative,Urine Stat Lab 05/23/25 13:00 Completed HCG,Qualitative Serum Stat Lab 05/23/25 12:53 Completed UA, C/S IF [Urinalysis, C/S if Indicated] Stat Lab 05/23/25 13:00 Completed Vital Signs Vital signs: Vital Signs Temperature 98.3 F 05/23/25 12:37 Pulse Rate 71 05/23/25 12:37 Respiratory Rate 16 05/23/25 12:37 Blood Pressure 128/81 05/23/25 12:37 Pulse Oximetry (%) 98 05/23/25 12:37 Oxygen Delivery Method Room Air 05/23/25 12:37 Urogenital - Female MDM Narrative MDM Narrative:: 29-year-old female with no known medical history presents to the emergency room with a chief complaint of lower abdominal and lower back pain x 1 day Patient is hemodynamically stable and in no apparent distress Physical examination shows tenderness and pain to the patient's bilateral lower pelvic area with palpation. The patient has active bowel sounds to all 4 quadrants. Patient states she does not know if she is . Ultrasound of the pelvis was completed and shows a left-sided ovarian cyst. Patient states EGD was negative. Patient's blood work and urinalysis were within normal limits Patient was discharged and educated to follow-up with primary care provider in the next 24 to 48 hours and return to the emergency room for any evidence of worsening signs or symptoms Patient data External records reviewed:: [facility] previous records Clinical information provided by:: patient Social determinants that could affect healthcare access:: none Patient has the following chronic illnesses:: No chronic illness How is presenting disease/condition affected by chronic disease/condition?: no chronic disease Evaluation data The following diagnostics were reviewed and interpreted by me:: lab results and radiology exam(s) Lab and/or radiology exams considered but not ordered:: Labs and radiology exams considered and ordered Interpretation Summary: Pelvic ultrasound-FINDINGS: Uterus 6.5 cm endometrial stripe 0.3 cm No uterine mass or intrauterine gestation Right ovary 3.0 cm arterial flow. Left ovary 3.5 cm arterial flow 11 mm follicular cyst IMPRESSION: Negative examination Medications / Prescriptions Medications or Prescriptions considered but not ordered:: No medication given Medication administrations:: No medication given Consultations Consultation(s) initiated? (list below): No Diagnosis Urogenital Female Differential Diagnosis: urinary tract infection, ovarian cyst, ruptured ovarian cyst, cystitis and other Most likely diagnosis given after review of the tests above:: Ovarian cyst Admission Indicated Admission indicated?: not indicated Admission Request Was there a request for admission?: No Disposition Plan Disposition Plan: Discharge Discharge Attestation Discharge Attestation: The patient and all family members were given an opportunity to ask questions a nd understood the discharge instructions. Discharge instructions specifically effects, indications for sooner follow up or return to the emergency department, and the expected course of current diagnosis. Patient condition: Stable Discharge Plan Plan Patient Disposition: HOME (Self Care) Discharge Disposition comment: Stable Prescriptions/Referrals Prescriptions/Med Rec: No Action L norgest/e.estradiol-e.estrad [Amethia] 0.15 mg-30 mcg (84)/10 mcg (7) tablets,dose pack,3 month 1 tab PO QDAY 84 Days Qty: 84 2RF prednisone 20 mg tablet 20 mg PO QDAY Referrals: Josse Murphy MD [Primary Care Provider, Family Practice] - In 1 week Problem List Clinical Impression: Ovarian cyst Patient/Caregiver Discharge Instructions Education Materials: Understanding Ovarian Cysts, ED Ovarian Cyst Additional Instructions: Please follow-up with your MELT ROOM OPERATOR in the next 24 to 48 hours Your test was negative. Your pelvic ultrasound showed a left-sided ovarian cyst. Urinalysis was within normal limits there is no signs of any urinary tract infection Blood work was within normal limits. For any evidence of worsening signs or symptoms return to emergency room immediately Print Language: Bulgarian Stand Alone Forms: Samreen Award Info., Work/School Release, Patient Portal Info Letter PA/SHIELD OPERATOR Supervising Physician PA/SHIELD OPERATOR Supervising Physician: Dr. Espinoza
[2025-05-23 13:07] LABS: Basophils # (Auto) 0.1 Thou/mm3 (0.0-0.2); Basophils % (Auto) 1 % (0-2.5); Eosinophils # (Auto) 0.1 Thou/mm3 (0.0-0.5); Eosinophils % (Auto) 3 % (0-10); Hematocrit 38.7 % (36.0-46.0); Hemoglobin 13.5 g/dL (12.0-16.0); Immature Granulocytes Auto 0.01 Thou/mm3 (0.00-0.00); Lymphocytes # (Auto) 0.6 Thou/mm3 (1.0-4.8); Lymphocytes % (Auto) 12 % (10-50); Mean Corpuscular HGB Conc 34.9 g/dl (31.0-37.0); Mean Corpuscular Hemoglobin 30.5 pg (25.0-35.0); Mean Corpuscular Volume 87 fL (80-100); Monocytes # (Auto) 0.6 Thou/mm3 (0.0-0.8); Monocytes % (Auto) 13 % (0-12); Neutrophils # (Auto) 3.3 Thou/mm3 (1.8-7.7); Neutrophils % (Auto) 71 % (37-80); Nucleated Red Blood Cell # 0.00 Thou/mm3 (0.00-0.00); Nucleated Red Blood Cell % 0 /100 WBC (0); Platelet Count 234 Thou/mm3 (140-440); RDW Standard Deviation 38.6 fL (36.4-46.3); Red Blood Count 4.43 Miln/mm3 (4.00-5.20); White Blood Count 4.7 Thou/mm3 (3.6-11.0)
[2025-05-23 13:16] LABS: Collection Type, Urine Clean Catch
[2025-05-23 13:24] LABS: Alanine Aminotransferase 22 U/L (10-49); Albumin, Serum 4.9 gm/dL (3.5-5.0); Albumin/Globulin Ratio 2.1 (1.2-2.2); Alkaline Phosphatase 60 U/L (46-116); Anion Gap 9 (7-16); Aspartate Amino Transferase 22 U/L (0-34); BUN/Creatinine Ratio 11 Ratio (12-20); Bilirubin,Total 0.6 mg/dL (0.3-1.2); Blood Urea Nitrogen 8 mg/dL (9-23); Calcium 9.8 mg/dL (8.3-10.6); Calcium (Corrected) 9.8 mg/dL (8.5-10.1); Carbon Dioxide 27.2 mMol/L (20.0-31.0); Chloride 105 mMol/L (98-107); Creatinine (Component) 0.7 mg/dL (0.6-1.3); Estimated Creatinine Clearance 118.6 mL/min (>60); Globulin 2.3 gm/dL (2.3-3.5); Glucose 97 mg/dL (74-106); Osmolality,Calculated 279 (275-295); Potassium 4.4 mMol/L (3.4-5.1); Sodium 141 mMol/L (136-145); Total Protein 7.2 gm/dL (5.7-8.2); eGFR > 60 See Note
[2025-05-23 13:27] LABS: Bilirubin,Urine Negative (Negative); Blood,Urine Negative (Negative); Clarity,Urine Clear (Clear/Hazy); Color,Urine Colorless (Lt Yel-Yel); Culture Indicated,Urine Not Indicated; Glucose, Urine Negative (Negative); Ketones,Urine Negative (Negative); Leukocyte Esterase,Urine Negative (Negative); Nitrite,Urine Negative (Negative); PH,Urine 6.5 (5.0-7.0); Protein,Urine Negative (Neg - Trace); RBC,Urine < 1 /hpf (0-3); Specific Gravity,Urine 1.008 (1.001-1.035); Squamous Epithelial Cell,Urine < 1 /hpf (0-5); Urobilinogen,Urine Negative mg/dL (0.0-1.0); WBC,Urine < 1 /hpf (0-5)
[2025-05-23 13:36] LABS: HCG,Qualitative Serum Negative
[2025-05-23 13:50] LABS: HCG Qualitative,Urine Negative
--- NOTE | 2025-05-23 14:38 | PC.NURSE ---
BREN IN XRAY INFORMED THAT PT'S HCG WAS NEGATIVE.
== END 2025-05-23 16:16 | disposition home or self-care (01) ==
PROVIDERS: Emergency Provider Nurse Practitioner Family; PCP Family Medicine
DX: N83.02 Follicular cyst of left ovary (principal); M54.50 Low back pain, unspecified
CPT/HCPCS: 36415; 72100; 76856; 80053; 81001; 81025; 84703; 85025; 99284

== ENCOUNTER 2025-06-19 09:30 | Outpatient (AMB) | payer MEDICAID, SELFPAY ==
--- NOTE | 2025-06-19 09:43 | GSCOFFNT_ITS ---
Vital Signs - [facility] 06/19/25 09:44 Height 1.63 m Height Method Measured Weight 79.379 kg Weight Measurement Method Standing Scale BMI 30.0 BP 120/76 Blood Pressure Source Automatic Cuff Blood Pressure Location Left Upper Arm Position Sitting Respiration 18 Pulse 70 Pulse Source Monitor Temp 97.7 F Temp Source Temporal Artery Scan Pulse Oximetry (%) 98 Oxygen Delivery Method Room Air Med/Allergies Allergies & Medications Allergies etonogestrel (From [facility]) Allergy (Verified 06/19/25 09:45) Headache latex Allergy (Verified 06/19/25 09:45) shrimp Allergy (Verified 06/19/25 09:45) Medication Reconciliation L norgest/E estradiol-E estrad 0.15 mg-30 mcg (84)/10 mcg(7) tabs,3mos (Amethia) 1 tab PO QDAY 84 days #84 tabs 02/14/25 [Rx Confirmed 06/19/25] prednisone 20 mg tablet 20 mg PO QDAY 02/20/25 [History Confirmed 06/19/25] MA Intake Visit Data Collection New Patient or Established: Established Patient (seen at 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 Required: No PCP or OBGYN visit in last 3 months: Yes Hx Now: No Do You Feel Safe at Home: Yes Authorities Contacted: N/A Smoking Status Smoking Status: Never smoker Immunization / Flu Flu Vaccine in the Last 12 Months: No Flu Vaccine Exclusion Criteria: Refused by Patient Past Medical History Past Medical History NEUROLOGIC: Positive Neurological Disorders and Migraine; Negative Cerebrovascular Accident, Transient Ischemic Attacks (TIA), Dementia, Alzheimer's Disease, Seizures, Epilepsy, Multiple Sclerosis or Cerebral Palsy CARDIAC: Positive Cardiac Disorders and Cardiac Arrhythmia; Negative Myocardial Infarction or Congestive Heart Failure RESPIRATORY: Negative Chronic Obstructive Pulmonary Disease (COPD), Asthma, Bronchitis, Emphysema, Pneumonia or Pulmonary Fibrosis GASTROINTESTINAL: Positive Gastrointestinal Disorders, Irritable Bowel, Crohn's Disease and Obesity; Negative Liver Cancer, Hepatitis, Gall Bladder Disease, Gastrointestinal Bleed, Esophageal Varices, Cruz's Esophagus or Colorectal Cancer GENITOURINARY: Positive Genitourinary Disorders; Negative Renal Disease or Prostate Cancer REPRODUCTIVE: Positive Previous Pregnancies; Negative Breast Cancer or Testicular Cancer MUSCULOSKELETAL: Negative Bone Cancer ENDOCRINE: Negative Endocrine Disorders, Diabetes Mellitus Type 1 or Diabetes Mellitus Type 2 HEMATOLOGIC: Positive Blood Disorders and Anemia PSYCHO/SOCIAL: Positive Anxiety and Depression OTHER HISTORY: Negative Hospitalization, Down Syndrome, Developmental Delay, Shingles, Falls, Blood Transfusions, Blood Transfusion Reaction, Anesthesia Reactions, Organ Transplant, Chemotherapy, Radiation Therapy, Hyperbaric Therapy, MRSA, VRSA, Vancomycin-Resistant Enterococci, Human Immunodeficiency Virus (HIV), Chicken Pox, Measles, Mumps, Rubella (Green[place]ic Measles), Pertussis, Clostridium Difficile, Cancer, Breast Cancer, Cervical Cancer, Colorectal Cancer, Lung Cancer, Ovarian Cancer, Prostate Cancer or Testicular Cancer Family History FAMILY HISTORY: Negative Family Psychiatric Problems, Family Respiratory D isorders, Family Cardiac Disorders, Family Gastrointestinal Problems, Family Cancer, Family Surgery or Family Anesthesia Reaction Surgical History SURGICAL: Negative Abdominal Surgery, Nephrectomy, Joint Replacement, Section or Organ Transplant Social History SMOKING STATUS: Smoking status: Never smoker SECOND HAND EXPOSURE: second hand exposure: No ALCOHOL: Alcohol Intake: Current ALCOHOL FREQUENCY: Alcohol Intake Frequency: A Few Times a Month HOUSING: Housing: Apartment LIVES WITH: Lives With: Children, Family and Spouse HPI HPI Narrative 30F here for follow up of biliary dyskinesia. Pt states she continues to have upper abdominal pain which tends to be worse after eating. It is primarily in the epigastric region but she also notes some pain in the LUQ. She states her Crohn's symptoms are well controlled on mesalamine alone and she remains off prednisone ROS Review of Systems Systems Reviewed: All systems reviewed, normal except as documented Objective/Exam General General Appearance: alert, cooperative and well groomed Resp Respiratory exam: Absent respiratory distress Abdominal Abdominal exam: Present soft; Absent distention or tenderness Results HIDA, MRCP reviewed Assessment & Plan Diagnosis / Problem List (1) Biliary dyskinesia: Status: Acute Assessment & Plan: 30F with IBD currently on mesalamine alone here for follow up of biliary dyskinesia (EF 7%). As she is now off prednisone and continues to have postprandial epigastric pain I explained that it is reasonable to pursue cholecystectomy. I explained benefits/risks including need for conversion to open, bleeding, infection, and injury to nearby structures potentially requiring major biliary reconstruction which would require transfer to another hospital. Pt expressed understanding and is agreeable to proceeding Office Procedures GNS Level of Care Nursing/Assessment Patient Status: Established Patient Nursing Assessment/Reassesment: Medication Reconciliation, Update PMH in EMR and Vital Signs Coordination of Care: Complex Care and Chronic Disease 1-5, Consent,records obtained, informed consent, Education Simp Pt/Fam, Results/Orders obtained and Staff clarify orders Established Patient Charge Established Patient Point Assignment: 90 Established Patient Point Charge: Level 3 (80-115) Patient Portal Questionaires Social History Living Situation History Lives With: Family Housing: Apartment Tobacco History Smoking Status: Never smoker Second Hand Smoke Exposure: No Alcohol History Alcohol Intake: Current Alcohol Intake Frequency: A Few Times a Month Domestic Abuse History Do You Feel Safe at Home: Yes Review of Systems Report any current symptoms Only answer those that you have currently: Past Medical History Past Medical History Have you ever been diagnosed with any of the following: Neurological Problems Cerebrovascular Accident (CVA): No Transient Ischemic Attacks (TIA): No Dementia: No Alzheimer's Disease: No Seizures: No Epilepsy: No Multiple Sclerosis: No Cerebral Palsy: No Migraine: Yes Cardiology Problems Myocardial Infarction: No Cardiac Arrhythmia: Yes Congestive Heart Failure: No Respiratory Problems Chronic Obstructive Pulmonary Disease (COPD): No Asthma: No Bronchitis: No Emphysema: No Pneumonia: No Pulmonary Fibrosis: No Stomache/Intestinal Problems Liver Cancer: No Hepatitis: No Gall Bladder Disease: No Gastrointestinal Bleed: No Esophageal Varices: No Cruz's Esophagus: No Colorectal Cancer: No Irritable Bowel: Yes Crohn's Disease: Yes Obesity: Yes Genital/Urinary Problems Renal Disease: No Reproductive Problems Breast Cancer: No Previous Pregnancies: Yes Musculoskeletal Problems Bone Cancer: No Endocrine Problems Diabetes Mellitus Type 1: No Diabetes Mellitus Type 2: No Blood Problems Anemia: Yes Psychologic Problems Anxiety: Yes Depression: Yes Other Problems Hospitalization: No Down Syndrome: No Developmental Delay: No Shingles: No Falls: No Blood Transfusions: No Blood Transfusion Reaction: No Anesthesia Reactions: No Organ Transplant: No Chemotherapy: No Radiation Therapy: No Hyperbaric Therapy: No MRSA: No VRSA: No Vancomycin-Resistant Enterococci: No Human Immunodeficiency Virus (HIV): No Chicken Pox: No Measles: No Mumps: No Rubella (Greenlandic Measles): No Pertussis: No Clostridium Difficile: No Cancer: No Cervical Cancer: No Lung Cancer: No Ovarian Cancer: No
[2025-06-19 09:44] VITALS: BP 120/76; PULSE 70; RESP 18; TEMP 36.5; O2SAT 98
== END 2025-06-19 09:51 | disposition home or self-care (01) ==
LOC: HODSRG 09:30
PROVIDERS: PCP Obstetrics & Gynecology; Referring Provider Obstetrics & Gynecology; Supervising Provider Surgery; Visit Provider Surgery
DX: K82.8 Other specified diseases of gallbladder (principal); E66.9 Obesity, unspecified; Z68.30 Body mass index [BMI] 30.0-30.9, adult
CPT/HCPCS: 99213; G0463

== ENCOUNTER 2025-06-20 09:29 | Inpatient (IN) | payer MEDICAID, SELFPAY ==
[2025-06-20] VITALS (8 sets, daily range): BP systolic 109–130; BP diastolic 63–83; PULSE 68–80; RESP 13–99; TEMP 36.4–36.9; O2SAT 96–100; BMI 29.3
--- NOTE | 2025-06-20 09:45 | XR_ITS ---
Examination: Abdomen sonogram, Limited Date and time of exam: 06/20/2025, 10:47 a.m. INDICATION: Right upper quadrant pain Comparison gallbladder ultrasound 10/11/2024. CT abdomen pelvis 10/11/2024 Technique: Real-time haq scale transabdominal sonographic images of the upper abdomen obtained. Findings: Gallbladder: No cholelithiasis or sludge. No gallbladder wall thickening or pericholecystic fluid. No reported pain with direct transducer pressure over the gallbladder. The common bile duct measures 0.4 cm. No apparent intrahepatic bile duct dilatation. The liver demonstrates smooth margins and echotexture that is within normal limits. It is measured at 17.4 cm in length. No mass identified. Color Doppler demonstrates patency of the main portal vein with normal hepatopetal flow. Hepatic veins and visualized IVC are patent. The visualized portions of the pancreas appear normal. The right kidney as visualized is normal. IMPRESSION: Negative ultrasound for cholelithiasis, acute cholecystitis or biliary ductal obstruction. Mild hepatomegaly reidentified. No significant interval change since the comparison gallbladder ultrasound.
--- NOTE | 2025-06-20 09:45 | PD.EDRME ---
Rapid Medical Screening Exam RME Arrival date/time: 06/20/25 09:29 30-year-old female presents to the emergency department today for complaints of right upper quadrant abdominal pain and epigastric pain Chief Complaint: Abdominal Pain Time Seen by Provider: 06/20/25 14:47 Vital signs: Vital Signs Temperature 98.2 F 06/20/25 09:42 Pulse Rate 78 06/20/25 09:42 Respiratory Rate 16 06/20/25 09:42 Blood Pressure 115/67 06/20/25 09:42 Pulse Oximetry (%) 99 06/20/25 09:42 Oxygen Delivery Method Room Air 06/20/25 09:42 Vital signs reviewed by provider: Yes Exam: Patient is tenderness of the upper abdomen Patient appears to be in pain Patient hemodynamically stable Clinical Impression: Labs and imaging ordered
[2025-06-20] MEDS: HYDROcodone/APAP 5/325 TABLET 1 TAB PO ×2 (09:56→17:34)
[2025-06-20] MEDS: METOCLOPRAMIDE 5 MG TABLET 10 MG PO (09:56)
[2025-06-20 10:28] LABS: Basophils # (Auto) 0.0 Thou/mm3 (0.0-0.2); Basophils % (Auto) 1 % (0-2.5); Eosinophils # (Auto) 0.1 Thou/mm3 (0.0-0.5); Eosinophils % (Auto) 1 % (0-10); Hematocrit 39.8 % (36.0-46.0); Hemoglobin 13.7 g/dL (12.0-16.0); Immature Granulocytes Auto 0.01 Thou/mm3 (0.00-0.00); Lymphocytes # (Auto) 0.9 Thou/mm3 (1.0-4.8); Lymphocytes % (Auto) 18 % (10-50); Mean Corpuscular HGB Conc 34.4 g/dl (31.0-37.0); Mean Corpuscular Hemoglobin 29.8 pg (25.0-35.0); Mean Corpuscular Volume 87 fL (80-100); Monocytes # (Auto) 0.4 Thou/mm3 (0.0-0.8); Monocytes % (Auto) 8 % (0-12); Neutrophils # (Auto) 3.6 Thou/mm3 (1.8-7.7); Neutrophils % (Auto) 71 % (37-80); Nucleated Red Blood Cell # 0.00 Thou/mm3 (0.00-0.00); Nucleated Red Blood Cell % 0 /100 WBC (0); Platelet Count 245 Thou/mm3 (140-440); RDW Standard Deviation 38.8 fL (36.4-46.3); Red Blood Count 4.59 Miln/mm3 (4.00-5.20); White Blood Count 5.1 Thou/mm3 (3.6-11.0)
[2025-06-20 10:31] LABS: Collection Type, Urine Clean Catch
[2025-06-20 10:53] LABS: Alanine Aminotransferase 17 U/L (10-49); Albumin, Serum 5.1 gm/dL (3.5-5.0); Albumin/Globulin Ratio 2.0 (1.2-2.2); Alkaline Phosphatase 63 U/L (46-116); Anion Gap 8 (7-16); Aspartate Amino Transferase < 8 U/L (0-34); BUN/Creatinine Ratio 10 Ratio (12-20); Bilirubin,Total 0.5 mg/dL (0.3-1.2); Blood Urea Nitrogen 8 mg/dL (9-23); Calcium 10.1 mg/dL (8.3-10.6); Calcium (Corrected) 10.1 mg/dL (8.5-10.1); Carbon Dioxide 28.0 mMol/L (20.0-31.0); Chloride 104 mMol/L (98-107); Creatinine (Component) 0.8 mg/dL (0.6-1.3); Estimated Creatinine Clearance 103.9 mL/min (>60); Globulin 2.6 gm/dL (2.3-3.5); Glucose 105 mg/dL (74-106); Lipase 427 U/L (12-53); Osmolality,Calculated 277 (275-295); Potassium 4.7 mMol/L (3.4-5.1); Sodium 140 mMol/L (136-145); Total Protein 7.7 gm/dL (5.7-8.2); Troponin I < 0.020 ng/mL (0.0-0.045); eGFR > 60 See Note
[2025-06-20 10:58] LABS: HCG Qualitative,Urine Negative
[2025-06-20 11:14] LABS: Bacteria,Urine Rare; Bilirubin,Urine Negative (Negative); Blood,Urine Trace (Negative); Clarity,Urine Clear (Clear/Hazy); Color,Urine Lt-Yellow (Lt Yel-Yel); Culture Indicated,Urine Not Indicated; Glucose, Urine Negative (Negative); Ketones,Urine Negative (Negative); Leukocyte Esterase,Urine Positive (Negative); Nitrite,Urine Negative (Negative); PH,Urine 6.0 (5.0-7.0); Protein,Urine Negative (Neg - Trace); RBC,Urine 2 /hpf (0-3); Specific Gravity,Urine 1.015 (1.001-1.035); Squamous Epithelial Cell,Urine 1 /hpf (0-5); Urobilinogen,Urine Negative mg/dL (0.0-1.0); WBC,Urine 3 /hpf (0-5)
--- NOTE | 2025-06-20 13:21 | EKG_ITS ---
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
--- NOTE | 2025-06-20 13:21 | XR_ITS ---
Examination: CT abdomen with intravenous contrast CT pelvis with intravenous contrast 2-D coronal reconstructions 2-D sagittal reconstructions Date and time of exam: 06/20/2025, 3:25 p.m. INDICATION: Mid abdominal pain with nausea for 2 days COMPARISON: CT abdomen pelvis without contrast 10/11/2024 CTDI: vol (mGy) 8.36 DLP: (mGycm) 420 Technique: Multiple axial sections of the abdomen and pelvis have been obtained. 64 slice high-resolution scanner used. 3 mm axial sections have been obtained, post intravenous injection of 60 mL Isovue 370 2-D sagittal, coronal reconstructions obtained. Low dose protocols were performed. One or more of the following dose reduction techniques were used; automated exposure control, adjustment of the mA and/or KV according to patient size, use of iterative reconstruction technique. Findings: FINDINGS: Lower chest: No cardiomegaly or pericardial effusion. No airspace consolidation or pleural effusion. Liver: Normal variant elongated right hepatic lobe and lateral segment left hepatic lobe. The liver otherwise demonstrates smooth margins and homogeneous enhancement without apparent focal lesions on single phase imaging. Biliary system: No calcified gallstones or findings concerning for acute cholecystitis or biliary ductal obstruction. Spleen: Within normal limits of size. No solid mass. Pancreas: Swelling of the pancreatic head and neck with adjacent peripancreatic edematous fat stranding. No organized collection. No calculus or abnormal main ductal dilatation. Pancreatic enhancement is intact, without evidence for necrosis. Note that there has been interval development of atrophy of the pancreatic body and tail since prior CT. Adrenal glands: No significant findings. Kidneys and ureters: No solid mass. No calculi or hydroureteronephrosis. No evidence for acute pyelonephritis. Bladder: No calculi or focal mass. Pelvic organs: No concerning focal lesion or acute abnormality. Lymph nodes/retroperitoneum: No pathologically enlarged lymph nodes or other masses. No hematoma or other abnormal collections. Vessels: No abdominal aortic aneurysm. Prominent bilateral ovarian veins adnexal veins are visualized, greater on the left side. Normal caliber abdominal aorta. 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 No evidence for DVT in the pelvis or visualized proximal thighs at time of imaging. Bowel/Peritoneal cavity: Limited assessment of bowel due to segments of underdistention and lack of oral contrast. No contour deforming mass. No obstructive or acute inflammatory changes. The appendix is normal. No ascites or free air. No concerning peritoneal thickening. Abdominal/Pelvic wall: No significant hernia, other mass, or abnormal collection. Musculoskeletal: No recent fractures or aggressive bone lesions detected. Very small chronic Schmorl's nodes are present at the inferior endplate of T11. IMPRESSION: Acute interstitial pancreatitis predominately involving the pancreatic head and neck. No evidence for pancreatic necrosis or organized fluid collection. Interval development of atrophy of the pancreatic body and tail since prior CT. No abnormal main pancreatic ductal dilatation. No evidence for calcified gallstones, acute cholecystitis or bile duct obstruction. 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 No evidence for DVT in the pelvis or visualized proximal thighs at time of imaging.
--- NOTE | 2025-06-20 13:35 | EDNOTE_ITS ---
<Statement entered by Audrey Sawyer MD - 06/21/25 09:36> As co-signing physician, I was present and available for consult prn. I concur with the plan and care as documented by the midlevel provider. ED Abdominal Pain RME/HPI General Chief Complaint: Abdominal Pain Stated complaint: ABD PAIN RADIATING TO R) SIDE, NAUSEA Time seen by provider: 06/20/25 14:47 Arrival date/time: 06/20/25 09:29 RME / HPI RME / HPI narrative: 06/20/25 09:29 Patient is a 30-year-old female with a past medical history of chron's disease on mesalamine and history of hemochromatosis per chart review who presented to the emergency room room via private vehicle with a chief complaint of abdominal pain radiating to the right and left side and positive for nausea. Complaining of epigastric pain and radiates bilaterally. Patient denied emesis. Patient denied any diarrhea. Patient hematochezia, melena or hematuria. Denied hematemesis or hemoptysis. Denied fevers or chills. Patient has been unable to keep food down. Pain 8 out of 10. Patient has an appointment with Dr. Cintron for scheduled cholecystectomy. On June 29. Patient follows with gastroenterology and [facility]. Patient is currently not taking prednisone per gastroenterology's recommendations. Per chart review previous imaging showed biliary dyskinesia with HIDA scan showing 7% ejection fraction and history of pancreatitis. 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 CBC, CMP, Lipase CT Ab w/ contrast, EKG Exam: Patient is tenderness of the upper abdomen Patient appears to be in pain Patient hemodynamically stable Impression: Labs and imaging ordered Related Data Home Medications ?Medication ?Instructions ?Recorded ?Confirmed prednisone 20 mg tablet 20 mg PO QDAY 02/20/2506/19 Previous Rx's ?Medication ?Instructions ?Recorded L norgest/E estradiol-E estrad 1 tab PO QDAY 84 days # 84 tabs 02/14/25 0.15 mg-30 mcg (84)/10 mcg(7) tabs,3mos ([place]ia) Allergies Allergy/AdvReac Type Severity Reaction Status Date / Time etonogestrel (From Nexplanon) Allergy Headache Verified 06/20/25 09:31 latex Allergy Verified 06/20/25 09:31 shrimp Allergy Verified 06/20/25 09:31 Review of Systems Review of Systems Narrative Review of Systems: General appearance: NO weight change, NO fatigue, NO weakness, NO fever, NO chills, NO night sweats, No cough Skin: NO rash, NO itching, NO sores, NO moles HEENT: NO Trauma, NO nausea, NO vomiting, NO visual changes, NO blurry vision, NO double vision, NO tinnitus, NO vertigo, NO ear discharge, NO rhinorrhea, NO stuffiness, NO sneezing, NO allergy, NO epistaxis. NO Hoarseness, NO sore throat, NO swollen neck. Cardiac: NO Palpitations, NO dyspnea on exertion, NO orthopnea, NO paroxysmal nocturnal dyspnea, NO edema Respiratory: NO Shortness of Breath, NO Wheezing, NO Cough, NO Sputum, NO hemoptysis GI:Yes appetite, Yes nausea, NO vomiting, NO dysphagia, NO changes in bowel frequency, NO stool color, NO diarrhea, NO constipation, NO hemetemesis, NO hemorrhoids, NO melena, NO hematechezia, YEs abdominal pain, NO jaundice Renal: NO frequency, NO hesitancy, NO urgency, NO hematuria, NO nocturia, NO incontinence MSK: NO muscle weakness, NO gout, NO arthritis, NO muscle stiffness Neuro: NO headaches, NO tremors, NO weakness, NO paralysis, NO seizures, NO loss of consciousness, NO numbness. Hem: NO anemia, NO easy bruising/bleeding, NO petechiae, NO purpura Endo: NO heat/cold intolerance, NO excessive sweating, NO polyuria, NO polydipsia, NO polyphagia, NO thyroid problems, NO diabetes Pysch: NO mood, NO anxiety, NO depression ED Exam Narrative Physical exam: General Appearance: Alert & Oriented X3, well-nourished female who is lying in bed in mild distress secondary to abdominal pain. HEENT: Skull symmetrical and atraumatic. Conjunctivae pink and moist. Pupils equal, round, reactive to light and accommodation (PERRL). External ear without lesion or discharge. Straight, nares patient, mucosa pink, no discharge. Cardio: Normal Rate and Rhythm with S1 and S2 heart sounds. Ejection murmur noted sounds auscultated. No bruits on carotid auscultation. No peripheral edema or cyanosis. Lungs: Symmetric with good expansion. Chest and back non-tender. Breath sounds vesicular without crackles, wheezing or rhonchi Abdomen: epigastric pain, Non-distended, Normal Reactive Bowel Sounds Neuro: Alert, cooperative, oriented to person, place, and time. Speech clear. CN grossly intact. Upper motor strength 5/5 and Lower motor strength 5/5. Sensation intact. 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 Setup Operator Q4H START 00 Care 06/20/25 13:14 Active Continuous Pulse Oximetry QSHIFT Care 06/20/25 13:14 Completed Insert IV STAT Care 06/20/25 13:14 Active Intake and Output Routine Care 06/20/25 13:14 Ordered NPO STAT Care 06/20/25 13:14 Active Notify provider NEEDED Care 06/20/25 18:50 Active Diet Full Liquid Diet 06/20/[address] abdomen pelvis w con Urgent Exams 06/20/25 13:21 Completed US gall bladder Stat Exams 06/20/25 09:45 Completed CBC AM DRAW Lab 06/21/25 05:00 Ordered CBC AM DRAW Lab 06/22/25 05:00 Ordered CBC AM DRAW Lab 06/23/25 05:00 Ordered CBC Stat Lab 06/20/25 10:11 Completed Comprehensive Metabolic Panel AM DRAW Lab 06/21/25 05:00 Ordered Comprehensive Metabolic Panel AM DRAW Lab 06/22/25 05:00 Ordered Comprehensive Metabolic Panel AM DRAW Lab 06/23/25 05:00 Ordered Comprehensive Metabolic Panel Stat Lab 06/20/25 10:11 Completed HCG Qualitative,Urine Stat Lab 06/20/25 10:20 Completed Lipase Stat Lab 06/20/25 10:11 Completed Troponin I Stat Lab 06/20/25 10:11 Completed UA, C/S IF [Urinalysis, C/S if Indicated] Stat Lab 06/20/25 10:20 Completed Acetaminophen Tab [Tylenol Tab] Med 06/20/25 18:50 Discontinued 650 mg PO Q6H PRN HYDROcodone*/APAP 5/325 [[place] 5/325] Med 06/20/25 09:45 Discontinued 1 tab PO X1 ONE HYDROcodone*/APAP 5/325 [[place] 5/325] Med 06/20/25 16:29 Discontinued 1 tab PO X1 PRN Metoclopramide [Reglan] Med 06/20/25 09:45 Discontinued 10 mg PO X1 ONE Morphine* Inj Med 06/20/25 13:14 Discontinued 2 mg IVP Q4HR PRN Ondansetron Inj [Zofran Inj] Med 06/20/25 13:14 Discontinued 4 mg IVP Q1H PRN Ondansetron Inj [Zofran Inj] Med 06/20/25 18:50 Active 4 mg IVP Q6H PRN Ringers Lactated 1000 ml [Lactated Ringers] 1,000 ml Med 06/20/25 17:26 Discontinued IV 125 mls/hr Ringers Lactated 1000 ml [Lactated Ringers] 1,000 ml Med 06/20/25 19:00 Discontinued IV 75 mls/hr Ringers Lactated 1000 ml [Lactated Ringers] 1,000 ml Med 06/20/25 13:17 Discontinued IV 999 mls/hr Code Status Routine Oth 06/20/25 18:50 Ordered EKG (RT) Routine RT 06/20/25 13:21 Draft Oxygen Delivery STAT RT 06/20/25 13:14 Active same as above Vital Signs Vital signs: Vital Signs Temperature 98.2 F 06/20/25 09:42 Pulse Rate 78 06/20/25 09:42 Respiratory Rate 16 06/20/25 09:42 Blood Pressure 115/67 06/20/25 09:42 Pulse Oximetry (%) 99 06/20/25 09:42 Oxygen Delivery Method Room Air 06/20/25 09:42 Abdominal Pain MDM Patient data External records reviewed:: [facility] previous records Clinical information provided by:: patient Social determinants that could affect healthcare access:: none Patient has the following chronic illnesses:: History of Crohn's, repeated pancreatitis, biliary dyskinesia How is presenting disease/condition affected by chronic disease/condition?: exacerbated by (biliary dyskinesia ) Evaluation data The following diagnostics were reviewed and interpreted by me:: lab results and radiology exam(s) Lab and/or radiology exams considered but not ordered:: none Interpretation Summary: Patient is a 30 year old female with past medical history of crohn's disease and biliary dyskinesia who presented with diffuse abdominal tenderness and elevated lipase - The patient's plan was discussed with attending Dr. Silverio Prieto MD PGY2 Internal Medicine Medications / Prescriptions Medications or Prescriptions considered but not ordered:: none Medication administrations:: Medication Administration History Acetaminophen (Acetaminophen 325 Mg Tablet) 650 mg PO Q6H PRN PRN Reason: Fever >100.4 or Pain 1-3 Stop: 07/20/25 18:49 Hydrocodone Bitart/Acetaminophen (Hydrocodone/Apap 5/325 Tablet) 1 tab PO Q6HR PRN PRN Reason: PAIN SCALE 4-6 Stop: 06/25/25 18:59 Al Hydrox/Mg Hydrox/Simethicone (Mg Hyd/Al Hyd/Declan (Maalox Reg) Susp 30 Ml Udc) 30 ml PO QID PRN PRN Reason: UPSET STOMACH/INDIGESTION Stop: 07/20/25 19:11 Enoxaparin Sodium (Enoxaparin Sod Inj 40 Mg/0.4 Ml Syringe) 40 mg SC QDAY [facility] Stop: 07/05/25 08:59 Lactated Ringer's (Lactated Ringers) 1,000 mls @ 125 mls/hr IV .Q8H KEDAR Stop: 07/20/25 19:14 Morphine Sulfate (Morphine Sulf Inj 4 Mg/Ml Vial) 1 mg IVP Q4HR PRN PRN Reason: PAIN SCALE 7-10 (Severe Stop: 06/25/25 18:59 Ondansetron HCl (Ondansetron Inj 2 Mg/Ml Inj 2 Ml) 4 mg IVP Q6H PRN; Protocol PRN Reason: NAUSEA OR VOMITING Stop: 07/20/25 18:49 Pantoprazole Sodium (Pantoprazole Inj 40 Mg Vial) 40 mg IVP QDAY [facility] Stop: 07/20/25 19:14 Discontinued Medications Acetaminophen (Acetaminophen 325 Mg Tablet) 650 mg PO Q6H PRN PRN Reason: Fever >100.4 or Pain 1-10 Stop: 07/20/25 18:49 Hydrocodone Bitart/Acetaminophen (Hydrocodone/Apap 5/325 Tablet) 1 tab PO X1 ONE Stop: 06/20/25 09:46 Last Admin: 06/20/25 09:56 Dose: 1 tab Documented By: Hydrocodone Bitart/Acetaminophen (Hydrocodone/Apap 5/325 Tablet) 1 tab PO X1 PRN PRN Reason: Pain Last Admin: 06/20/25 17:34 Dose: 1 tab Documented By: GM Hydrocodone Bitart/Acetaminophen (Hydrocodone/Apap 5/325 Tablet) 1 tab PO Q6HR PRN PRN Reason: PAIN SCALE 4-10(Mod-Sev Stop: 06/25/25 18:59 Lactated Ringer's (Lactated Ringers) 1,000 mls @ 999 mls/hr IV .Q1H1M ONE Stop: 06/20/25 14:17 Last Infusion: 06/20/25 17:15 Dose: Infused Documented By: Infusion: 06/20/25 16:35 Dose: 999 mls/hr Documented By: Infusion: 06/20/25 15:35 Dose: 0 mls/hr Documented By: Admin: 06/20/25 15:08 Dose: 999 mls/hr Documented By: GM Lactated Ringer's (Lactated Ringers) 1,000 mls @ 125 mls/hr IV .Q8H ONE Stop: 06/21/25 01:25 Last Admin: 06/20/25 17:36 Dose: 125 mls/hr Documented By: GM Lactated Ringer's (Lactated Ringers) 1,000 mls @ 75 mls/hr IV .[id number] [facility] Stop: 07/20/25 18:59 Lactated Ringer's (Lactated Ringers) 1,000 mls @ 125 mls/hr IV .Q8H [facility] Stop: 06/21/25 19:03 Metoclopramide HCl (Metoclopramide 5 Mg Tablet) 10 mg PO X1 ONE Stop: 06/20/25 09:46 Last Admin: 06/20/25 09:56 Dose: 10 mg Documented By: Morphine Sulfate (Morphine Sulf Inj 4 Mg/Ml Vial) 2 mg IVP Q4HR PRN PRN Reason: PAIN Stop: 06/20/25 15:15 Last Admin: 06/20/25 15:04 Dose: 2 mg Documented By: GM Ondansetron HCl (Ondansetron Inj 2 Mg/Ml Inj 2 Ml) 4 mg IVP Q1H PRN PRN Reason: PERSISTENT NAUSEA OR VOMITING Last Admin: 06/20/25 15:04 Dose: 4 mg Documented By: GM same as above Consultations Consultation(s) initiated? (list below): No Diagnosis Differential diagnosis abdominal pain: abdominal pain, acute appendicitis, calculus of kidney, diverticulitis and pancreatitis Most likely diagnosis given after review of the tests above:: Given past medical history likely diagnoiss of pancreatitis, pain, elevated lipase, and images. Admission Indicated Admission indicated?: indicated Admission Request Was there a request for admission?: Yes Admission Attestation Admission request attestation: Discussed case with Dr. Do from Hospitalist service regarding admission. Discussed patients ED course, exam findings, labs, and radiology results. The Hospitalist agrees to accept the patient for admission. Disposition Plan Disposition Plan: Admit Discharge Plan Plan Patient Disposition: Admit Acute Care w/in Hospital Problem List Clinical Impression: Pancreatitis
[2025-06-20] MEDS: MORPHINE SULF INJ 4 MG/ML VIAL 2 MG IVP (15:04)
[2025-06-20] MEDS: ONDANSETRON INJ 2 MG/ML INJ 2 ML 4 MG IVP (15:04)
[2025-06-20] MEDS: RINGERS LACTATED 1000 ML 1,000 ML 999 ML IV (15:08)
[2025-06-20] MEDS: RINGERS LACTATED 1000 ML 1,000 ML 125 ML IV ×2 (17:36→19:42)
--- NOTE | 2025-06-20 19:07 | ESHP_ITS ---
Documentation for date of: 06/20/25 [facility] History of Present Illness Chief complaint: Epigastric pain x 3 days History of present illness: Patient is a 30-year-old female with past medical history of IBD-Crohn's disease and hemochromatosis who presented to the ED on 06/20/2025 with 3 days of epigastric pain radiating bilaterally and associated with nausea. Patient has a previous history of pancreatitis and was hospitalized in September 2024. Patient denies frequent or binge alcohol use and states that over the last 2 months she has not had any alcohol. At that time, no specific triggers were identified however patient was found to have abnormally low gallbladder ejection fraction on nuclear scan. Since then the patient has followed up outpatient and has seen Dr. Mullins general surgery, and elective cholecystectomy is planned for 06/28/2025. Patient otherwise reports normal bowel movements, and although she has not eaten today due to being in the ED, she has an appetite. Patient denies family history of pancreatic or biliary disease. ED Course: -Initial vitals were hemodynamically stable -Labs significant for lipase 427 -CT abdomen/pelvis with contrast showed acute interstitial pancreatitis predominately involving the pancreatic head and neck. No evidence for pancreatic necrosis or organized fluid collection. Interval development of atrophy of the pancreatic body and tail since prior CT. No abnormal main pancreatic ductal dilatation. No evidence for calcified gallstones, acute cholecystitis or bile duct obstruction. 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 No evidence for DVT in the pelvis or visualized proximal thighs at time of imaging. -In the ED, patient was given metoclopramide 10 mg PO x1, hydrocodone- acetaminophen PO x1, morphine 2 mg IV x1, ondansetron 4 mg IV x1, and 1L of LR IV fluids. -Patient was admitted for acute pancreatitis episode Review of Systems Review of systems otherwise negative except what is mentioned above. Past Medical History Past Medical History Comments PMH COMMENT: PMH: Positive for IBD, Crohn's disease and hemochromatosis PSHx: Colonoscopy about 6 months ago Allergies: Etonogestrel, latex, shrimp Social history: -Smoking: Denies -Alcohol Use: Occasional alcohol use, reports drinking about 1-2 beers in a month -Illicit Drug Use: Denies Family History: Positive family history for diabetes in both parents Exam Vital Signs Temp Pulse Resp BP Pulse Ox O2 Del Method 98.1 F 80 17 130/83 98 Room Air 06/20/25 18:40 06/20/25 18:40 06/20/25 18:40 06/20/25 18:40 06/20/25 18:40 06/20/25 18:40 Narrative Exam Physical Exam General: Awake and in no acute distress. Conversational and non-toxic appearing. HEENT: Normocephalic, atraumatic, mucous membranes moist. Heart: Regular rate and rhythm, normal S1 and S2, no murmurs. Lungs: Clear to auscultation with no wheezing or crackles. Abdomen: Soft, nondistended, mild tenderness to palpation of the mid-abdomen, positive bowel sounds. ?No guarding or rebound tenderness. Neurologic: Alert and oriented x3, no gross neurological deficit, and patient able to move all 4 extremities. Extremities: No edema. Skin: No rash or ecchymoses. Results: Labs 06/21/25 05:07 06/21/25 05:07 Labs: Short CBC 06/20/25 Range/Units 10:11 WBC 5.1 (3.6-11.0) Thou/mm3 Hgb 13.7 (12.0-16.0) g/dL Hct 39.8 (36.0-46.0) % Plt Count 245 (140-440) Thou/mm3 BMP 06/20/25 10:11 Sodium 140 Potassium 4.7 Chloride 104 Carbon Dioxide 28.0 BUN 8 L Creatinine 0.8 Glucose 105 Calcium 10.1 Cardiac Enzymes 06/20/25 Range/Units 10:11 Troponin I < 0.020 (0.0-0.045) ng/mL Liver Function 06/20/25 Range/Units 10:11 Total Bilirubin 0.5 (0.3-1.2) mg/dL AST < 8 (0-34) U/L ALT 17 (10-49) U/L Alkaline Phosphatase 63 (46-116) U/L Albumin 5.1 H (3.5-5.0) gm/dL Urine 06/20/25 Range/Units 10:20 Urine Color Lt-Yellow (Lt Yel-Yel) Urine Clarity Clear (Clear/Hazy) Urine pH 6.0 (5.0-7.0) Ur Specific [place] 1.015 (1.001-1.035) Urine Protein Negative (Neg - Trace) Urine Glucose (UA) Negative (Negative) Quality Measures Quality Measures VTE prophylaxis Medications Home Medications and Allergies Allergies Allergy/AdvReac Type Severity Reaction Status Date / Time etonogestrel (From Nexplanon) Allergy Headache Verified 06/20/25 09:31 latex Allergy Verified 06/20/25 09:31 shrimp Allergy Verified 06/20/25 09:31 Visit Medications Acetaminophen (Acetaminophen 325 Mg Tablet) 650 mg PO Q6H PRN PRN Reason: Fever >100.4 or Pain 1-3 Stop: 07/20/25 18:49 Hydrocodone Bitart/Acetaminophen (Hydrocodone/Apap 5/325 Tablet) 1 tab PO Q6HR PRN PRN Reason: PAIN SCALE 4-6 Stop: 06/25/25 18:59 Enoxaparin Sodium (Enoxaparin Sod Inj 40 Mg/0.4 Ml Syringe) 40 mg SC QDAY KEDAR Stop: 07/05/25 08:59 Lactated Ringer's (Lactated Ringers) 1,000 mls @ 125 mls/hr IV .Q8H KEDAR Stop: 07/20/25 19:14 Morphine Sulfate (Morphine Sulf Inj 4 Mg/Ml Vial) 1 mg IVP Q4HR PRN PRN Reason: PAIN SCALE 7-10 (Severe Stop: 06/25/25 18:59 Ondansetron HCl (Ondansetron Inj 2 Mg/Ml Inj 2 Ml) 4 mg IVP Q6H PRN; Protocol PRN Reason: NAUSEA OR VOMITING Stop: 07/20/25 18:49 Discontinued Medications Acetaminophen (Acetaminophen 325 Mg Tablet) 650 mg PO Q6H PRN PRN Reason: Fever >100.4 or Pain 1-10 Stop: 07/20/25 18:49 Hydrocodone Bitart/Acetaminophen (Hydrocodone/Apap 5/325 Tablet) 1 tab PO X1 ONE Stop: 06/20/25 09:46 Last Admin: 06/20/25 09:56 Dose: 1 tab Hydrocodone Bitart/Acetaminophen (Hydrocodone/Apap 5/325 Tablet) 1 tab PO X1 PRN PRN Reason: Pain Last Admin: 06/20/25 17:34 Dose: 1 tab Hydrocodone Bitart/Acetaminophen (Hydrocodone/Apap 5/325 Tablet) 1 tab PO Q6HR PRN PRN Reason: PAIN SCALE 4-10(Mod-Sev Stop: 06/25/25 18:59 Lactated Ringer's (Lactated Ringers) 1,000 mls @ 999 mls/hr IV .Q1H1M ONE Stop: 06/20/25 14:17 Last Infusion: 06/20/25 17:15 Dose: Infused Lactated Ringer's (Lactated Ringers) 1,000 mls @ 125 mls/hr IV .Q8H ONE Stop: 06/21/25 01:25 Last Admin: 06/20/25 17:36 Dose: 125 mls/hr Lactated Ringer's (Lactated Ringers) 1,000 mls @ 75 mls/hr IV .[id number] KEDAR Stop: 07/20/25 18:59 Lactated Ringer's (Lactated Ringers) 1,000 mls @ 125 mls/hr IV .Q8H KEDAR Stop: 06/21/25 19:03 Metoclopramide HCl (Metoclopramide 5 Mg Tablet) 10 mg PO X1 ONE Stop: 06/20/25 09:46 Last Admin: 06/20/25 09:56 Dose: 10 mg Morphine Sulfate (Morphine Sulf Inj 4 Mg/Ml Vial) 2 mg IVP Q4HR PRN PRN Reason: PAIN Stop: 06/20/25 15:15 Last Admin: 06/20/25 15:04 Dose: 2 mg Ondansetron HCl (Ondansetron Inj 2 Mg/Ml Inj 2 Ml) 4 mg IVP Q1H PRN PRN Reason: PERSISTENT NAUSEA OR VOMITING Last Admin: 06/20/25 15:04 Dose: 4 mg Assessment & Plan Plan 30-year-old female with past medical history of IBD-Crohn's disease and hemochromatosis who presented to the ED on 06/20/2025 with 3 days of epigastric pain radiating bilaterally and associated with nausea, admitted for pancreatitis. #Acute pancreatitis #Elevated lipase #History of biliary dyskinesia Lipase level 427, symptoms of epigastric abdominal pain, and CT findings consistent with acute pancreatitis. Most likely idiopathic at this time, patient does not endorse significant alcohol use history, including no intake over last 2 months, lipids are within normal limits. Patient had gallbladder US negative for stones in Sep 2024 and today, however cannot completely exclude gallstone pancreatitis. Patient has history of biliary dyskinesia with HIDA scan in Sep 2024 showing 7% ejection fraction. No recent med exposure that could be associated with pancreatitis. -IV fluids lactated ringer's at 125 ml/hr -Pain management: acetaminophen 650 mg q6h for mild pain, [place] 5/325 mg q6h for moderate pain, morphine 1 mg q4h for severe pain -Zofran 4 mg q6h prn nausea -Start full liquids as patient feeling hungry -Will consider reaching out to Dr. Mullins in AM regarding plans for cholecystectomy on 06/28 to see if any indication for moving up surgery DVT prophylaxis: Lovenox GI prophylaxis: Pantoprazole 40 mg IV daily Diet: Full liquid [place]: None Lines: Peripheral IV Antibiotics: None CODE STATUS: FULL Reason for hospitalization: Acute pancreatitis Patient plan of care was discussed with the attending physician, Dr. Moreno. Janae Biswas, PGY-3 Attending Provider Attestation/Addendum I have seen and examined the patient. I was physically present for the colbert portions of the services provided including history, physical exam, diagnosis, treatment plans and orders. I agree with assessment and plan of care as documented by residents. Patient is a 30 years old female with past medical history of Crohn's disease, hemochromatosis who presented to the ED with complaint of epigastric pain radiating bilaterally. Patient has been having the symptoms for last 3 days associated with nausea. Denies any alcohol abuse, last drink being 2 months ago. Denies any fever or chills. Patient was hospitalized earlier this year for acute pancreatitis, at that time she was found to have gallbladder dyskinesia, following general surgery and was planned for cholecystectomy on June 28 this year. In the ED, vital signs were stable, lab results showed lipase of 427. CT abdomen/pelvis showed acute interstitial pancreatitis predominantly involving the pancreatic head and neck. 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 She had atrophy of pancreatic body and tail compared to last visit, possibly secondary to pancreatitis last time. Both CT abdomen/pelvis and gallbladder ultrasound did not show gallstones, biliary sludge or CBD stone. On exam she had epigastric tenderness which was mild, abdomen was soft and nondistended. Calcium level is within normal limits. No obvious source of pancreatitis at this time. We will admit the patient for management of acute pancreatitis. We will start her on IV fluids, pain management, antiemetics. Patient wished to start some food, we will start her on clear liquid diet. Plan to reach out to patient's general surgeon regarding cholecystectomy. We will also obtain lipid panel. Even though this this note was carefully revised there may still be minor errors in product safety manager due to voice recognition software. Lashonda Moreno MD
[2025-06-20 20:50] LABS: Cardiac Risk Estimate 2.1 RATIO (3.7-5.6); Cholesterol 143 mg/dL (132-200); HDL Cholesterol 69 mg/dL (40-60); LDL Cholesterol,Calculated 60 mg/dL (0-130); Triglycerides 71 mg/dL (30-150)
[2025-06-21] MEDS: RINGERS LACTATED 1000 ML 1,000 ML 125 ML IV ×2 (02:32→10:40)
[2025-06-21 04:00] VITALS: BP 105/79; PULSE 83; RESP 16; TEMP 37.2; O2SAT 98
[2025-06-21 05:55] LABS: Basophils # (Auto) 0.0 Thou/mm3 (0.0-0.2); Basophils % (Auto) 1 % (0-2.5); Eosinophils # (Auto) 0.1 Thou/mm3 (0.0-0.5); Eosinophils % (Auto) 2 % (0-10); Hematocrit 37.0 % (36.0-46.0); Hemoglobin 12.9 g/dL (12.0-16.0); Immature Granulocytes Auto 0.00 Thou/mm3 (0.00-0.00); Lymphocytes # (Auto) 1.1 Thou/mm3 (1.0-4.8); Lymphocytes % (Auto) 21 % (10-50); Mean Corpuscular HGB Conc 34.9 g/dl (31.0-37.0); Mean Corpuscular Hemoglobin 30.4 pg (25.0-35.0); Mean Corpuscular Volume 87 fL (80-100); Monocytes # (Auto) 0.6 Thou/mm3 (0.0-0.8); Monocytes % (Auto) 12 % (0-12); Neutrophils # (Auto) 3.3 Thou/mm3 (1.8-7.7); Neutrophils % (Auto) 65 % (37-80); Nucleated Red Blood Cell # 0.00 Thou/mm3 (0.00-0.00); Nucleated Red Blood Cell % 0 /100 WBC (0); Platelet Count 208 Thou/mm3 (140-440); RDW Standard Deviation 39.1 fL (36.4-46.3); Red Blood Count 4.24 Miln/mm3 (4.00-5.20); White Blood Count 5.1 Thou/mm3 (3.6-11.0)
[2025-06-21 06:26] LABS: Alanine Aminotransferase 19 U/L (10-49); Albumin, Serum 4.2 gm/dL (3.5-5.0); Albumin/Globulin Ratio 2.3 (1.2-2.2); Alkaline Phosphatase 43 U/L (46-116); Anion Gap 10 (7-16); Aspartate Amino Transferase 24 U/L (0-34); BUN/Creatinine Ratio 11 Ratio (12-20); Bilirubin,Total 0.8 mg/dL (0.3-1.2); Blood Urea Nitrogen 8 mg/dL (9-23); Calcium 9.2 mg/dL (8.3-10.6); Calcium (Corrected) 9.2 mg/dL (8.5-10.1); Carbon Dioxide 27.0 mMol/L (20.0-31.0); Chloride 104 mMol/L (98-107); Creatinine (Component) 0.7 mg/dL (0.6-1.3); Estimated Creatinine Clearance 121.7 mL/min (>60); Globulin 1.8 gm/dL (2.3-3.5); Glucose 100 mg/dL (74-106); Magnesium 1.6 mg/dL (1.6-2.6); Osmolality,Calculated 279 (275-295); Phosphorous 4.3 mg/dL (2.4-5.1); Potassium 4.0 mMol/L (3.4-5.1); Sodium 141 mMol/L (136-145); Total Protein 6.0 gm/dL (5.7-8.2); eGFR > 60 See Note
[2025-06-21 08:00] VITALS: BP 140/74; PULSE 76; RESP 18; TEMP 36.3; O2SAT 98
[2025-06-21] MEDS: ACETAMINOPHEN 325 MG TABLET 650 MG PO (08:21)
--- NOTE | 2025-06-21 09:56 | PC.SS ---
Patient Matt Ulrich is a 30 Year old female admitted for Pre REG. SS met with patient at bedside to discuss discharge plan and verify demographic information. Patient reports she lives at home with family. Patient reports her life partner, Poli Ulrich is a surrogate decision maker, [phone]. Patient reports she does not utilize any source of DME and is able to complete all ADL's independently. Choice of pharmacy is [facility]. PCP is Josse Murphy. At time of discharge patient wishes to return home, Family will provide transportation. Discharge plan: Home Next of Kin: Life partner, Poli Ulrich
--- NOTE | 2025-06-21 11:04 | PC.SS ---
SS follow up note; Patient is on IV Fluids. Patient will possibly discharge home today.
[2025-06-21 12:00] VITALS: BP 118/66; PULSE 89; RESP 18; TEMP 36.1; O2SAT 98
--- NOTE | 2025-06-21 14:30 | ESDS_ITS ---
<Statement entered by Belem Higgins MD - 07/06/25 07:50> I reviewed above note and agree with findings and plans. I have also personally examined the patient with medicine team and went over assessment and plan with medical team including management retail intern and resident physician. <Statement entered by Allen Do MD - 06/21/25 15:09> I have personally seen and examined the patient, agree with residents assessment and plan Patient plan of care was discussed with the attending physician, Dr. Gisela Do, PGY2 Planned Discharge Date 06/21/25 DS: Providers Provider Date of admission: 06/20/25 18:51 Primary care physician: Josse Murphy MD Admitting Provider: Lashonda Moreno MD Attending Provider on Admission: Lashonda Moreno MD Attending Provider on DC: Belem Higgins MD Discharging Provider: Chastity Monique MD DS: Diagnosis Problem List Completed Was Problem List Reviewed/Reconciled?: Yes Hospital Course Hospital Course Hospital course: 30-year-old female with past medical history of Crohn?s disease, hemochromatosis, and biliary dyskinesia (HIDA EF 7%) admitted for acute interstitial pancreatitis after presenting with 3 days of epigastric pain r adiating bilaterally and associated nausea, now clinically improved with conservative management. On presentation, the patient reported 3 days of worsening epigastric pain radiating across the upper abdomen, associated with nausea but no vomiting or fever. She denied recent alcohol use (none for >2 [address]). CT abdomen/pelvis revealed acute interstitial pancreatitis involving the pancreatic head and neck without necrosis or ductal dilation. Gallbladder ultrasound was negative for cholelithiasis or cholecystitis. Lipase was 427; triglycerides, calcium, and LFTs were within normal limits. She was treated with IV lactated Ringer?s, PRN morphine, acetaminophen, and ondansetron. Over 24 hours, pain improved to 2/10, localized to the epigastrium only. She tolerated a diet without nausea or vomiting, remained afebrile, and hemodynamically stable. No bowel movement yet but passing gas. The patient is scheduled for laparoscopic cholecystectomy on 06/28/[address] Mullins (General Surgery). 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 If you do not have appointment, please follow-up with [facility] with Dr. Do. Call [phone] to make an appointment. -Continue rest of the home medications and take Tylenol as needed for pain -Return to ED if symptoms persist or return ----- Plan discussed with attending physician Dr. Higgins and senior resident Dr. Wade Monique MD PGY-1 Internal Medicine Time Spent with Patient Time attestation: Total time spent providing and/or coordinating discharge services: Time spent: Greater than 30 minutes Exam Vital Signs Temp Pulse Resp BP Pulse Ox O2 Del Method 97.0 F 89 18 118/66 98 Room Air 06/21/25 12:00 06/21/25 12:00 06/21/25 12:00 06/21/25 12:00 06/21/25 12:00 06/21/25 12:00 Narrative Exam General: Alert, oriented, no acute distress. Heart: RRR, no murmurs. Lungs: Clear bilaterally. Abdomen: Soft, nondistended, mild epigastric tenderness, +BS, no rebound or guarding. Extremities: No edema. Neuro: Intact, moves all extremities. Discharge Plan Plan Patient Disposition: HOME (Self Care) Patient condition on transfer: Stable Care Plan Goals: -Follow-up with PCP within 1 week of discharge. If you do not have appointment, please follow-up with [facility] with Dr. Do. Call [phone] to make an appointment. -Continue rest of the home medications and take Tylenol as needed for pain -Return to ED if symptoms persist or return Prescriptions/Referrals Referrals: Josse Murphy MD [Primary Care Provider, Family Practice] Patient/Caregiver Discharge Instructions Education Materials: Understanding Pancreatitis, ED Pancreatitis Print Language: Frisian Stand Alone Forms: Samreen Award Info., Patient Portal Info Letter Discharge Order Discharge Orders: Discharge (Routine); Ordered 06/21/25 Ordered By: Allen Do Quality Discharge Quality Measures VTE prophylaxis
== END 2025-06-21 15:47 | disposition home or self-care (01) | DRG 282 ==
LOC: SERX 14:47 → SERHOLD 19:09 → S3SX 21:02
PROVIDERS: Nurse Practitioner Primary Care; Student in an Organized Health Care Education/Training Program; Admitting Provider Student in an Organized Health Care Education/Training Program; PCP Family Medicine; Visit Provider Student in an Organized Health Care Education/Training Program
DX: K85.80 Other acute pancreatitis without necrosis or infection (principal); I87.1 Compression of vein; K82.8 Other specified diseases of gallbladder; K50.90 Crohn's disease, unspecified, without complications; N94.89 Other specified conditions associated with female genital organs and menstrual cycle
CPT/HCPCS: 36415; 74177; 76705; 80053; 80061; 81001; 81025; 83690; 83735; 84100; 84484; 85025; 93005; 96361; 96374; 96375; 99284; A4649; J2270; J2405; J2470; J7120; Q9967; A9270

== ENCOUNTER 2025-06-28 06:00 | Day surgery (SDC) | payer MEDICAID, SELFPAY ==
[2025-06-23 08:57] VITALS: BMI 29.8
[2025-06-23 10:43] LABS: Basophils # (Auto) 0.1 Thou/mm3 (0.0-0.2); Basophils % (Auto) 1 % (0-2.5); Eosinophils # (Auto) 0.1 Thou/mm3 (0.0-0.5); Eosinophils % (Auto) 2 % (0-10); Hematocrit 38.5 % (36.0-46.0); Hemoglobin 13.2 g/dL (12.0-16.0); Immature Granulocytes Auto 0.01 Thou/mm3 (0.00-0.00); Lymphocytes # (Auto) 0.8 Thou/mm3 (1.0-4.8); Lymphocytes % (Auto) 18 % (10-50); Mean Corpuscular HGB Conc 34.3 g/dl (31.0-37.0); Mean Corpuscular Hemoglobin 30.3 pg (25.0-35.0); Mean Corpuscular Volume 88 fL (80-100); Monocytes # (Auto) 0.4 Thou/mm3 (0.0-0.8); Monocytes % (Auto) 8 % (0-12); Neutrophils # (Auto) 3.1 Thou/mm3 (1.8-7.7); Neutrophils % (Auto) 71 % (37-80); Nucleated Red Blood Cell # 0.00 Thou/mm3 (0.00-0.00); Nucleated Red Blood Cell % 0 /100 WBC (0); Platelet Count 253 Thou/mm3 (140-440); RDW Standard Deviation 39.0 fL (36.4-46.3); Red Blood Count 4.36 Miln/mm3 (4.00-5.20); White Blood Count 4.4 Thou/mm3 (3.6-11.0)
[2025-06-23 10:51] LABS: INR 1.0 (0.9-1.3); Partial Thromboplastin Time 27.3 Seconds (22.0-36.0); Prothrombin Time 10.5 Seconds (9.0-12.2)
[2025-06-23 10:54] LABS: Anion Gap 7 (7-16); BUN/Creatinine Ratio 13 Ratio (12-20); Blood Urea Nitrogen 9 mg/dL (9-23); Calcium 10.3 mg/dL (8.3-10.6); Carbon Dioxide 29.8 mMol/L (20.0-31.0); Chloride 104 mMol/L (98-107); Creatinine (Component) 0.7 mg/dL (0.6-1.3); Estimated Creatinine Clearance 118.3 mL/min (>60); Glucose 95 mg/dL (74-106); Osmolality,Calculated 279 (275-295); Potassium 4.2 mMol/L (3.4-5.1); Sodium 141 mMol/L (136-145); eGFR > 60 See Note
[2025-06-23 10:58] LABS: HCG,Qualitative Serum Negative
[2025-06-28] VITALS (10 sets, daily range): BP systolic 115–142; BP diastolic 69–83; PULSE 71–100; RESP 12–18; TEMP 36.2–36.7; O2SAT 98–100; BMI 29.2
[2025-06-28] MEDS: RINGERS LACTATED 1000 ML 1,000 ML 20 ML IV (06:50)
--- NOTE | 2025-06-28 08:46 | SUR.PHASEI ---
0846: Pt. AAOx4, vitals stable, breathing unlabored, complaint of pain, no complaint of nausea, x4 dermabond sites to ABD CDI, no active bleed noted, report received from MD Carmona and Ivon WISE.
[2025-06-28] MEDS: fentaNYL CIT INJ 50 mCg/ML AMP 2ML IVP ×3 (08:53→09:12)
[2025-06-28] MEDS: KETOROLAC INJ 30 MG/ML VIAL IVP (08:55)
--- NOTE | 2025-06-28 08:56 | PD.SUROPNT ---
Date of Procedure 06/28/25 Pre Op Diagnosis Biliary dyskinesia Post Op Diagnosis Same Procedure Laparoscopic cholecystectomy Findings Normal appearing gallbladder Procedure Description After discussion of risks and benefits, patient was brought to the operating room, SCDs were placed and general anesthesia was induced. She received preoperative antibiotics and was prepped and draped in the usual sterile fashion. After timeout a supraumbilical incision was made with a #15 blade and the skin was elevated with towel clamps. Proper positioning was confirmed with a drop test and the abdomen was insufflated to 15 mmHg. The Veress needle was then exchanged for a 5 mm camera using a Visiport technique. There were no signs of injury from the point of entry. 3 additional ports were placed under direct vision, one 12 mm at the epigastrium, one 5 mm right subcostal and one 5 mm right anterior axillary line. Patient was placed in reverse Trendelenburg. The fundus of the gallbladder was grasped and retracted cephalad and the infundibulum was grasped and retracted laterally. The lower third of the gallbladder was removed from the gallbladder bed using electrocautery and the hepatocystic triangle was cleared of fat and fibrous tissue using blunt dissection. There was a small accessory artery that was overlying the cystic duct and this was clipped and transected in the usual fashion. In general with blunt dissection, the critical view of safety was achieved and the cystic duct and cystic artery were clipped and transected in the usual fashion. The gallbladder was removed from the gallbladder bed using electrocautery. Hemostasis of the gallbladder bed was achieved using electrocautery and the specimen was removed in an Endo Catch bag via the epigastric port. The epigastric fascia was closed with a 0 Vicryl suture using a Adriano-Yasmine. Again the gallbladder bed was inspected and there were no signs of ongoing bleeding. Counts were confirmed correct. Pneumoperitoneum was released and ports were removed under direct vision. Incisions were irrigated and infiltrated with half percent Marcaine for a total of 30 cc. Incisions were closed with 4 Monocryl and reinforced with Dermabond. Patient was extubated and brought to PACU in stable condition Pathology / specimen Other (Gallbladder) Estimated Blood Loss 25 Surgeon Tyuet Mullins MD Surgical Staff Operation Date: 06/28/25 07:30 Case Staff Anesthesiologist: Harshad Carmona RNcarbon paper machine operator: Belkys Chan
--- NOTE | 2025-06-28 08:59 | PD.SURDS ---
Planned Discharge Date 06/28/25 DS: Providers Provider Primary care physician: Josse Murphy MD Attending Provider on Admission: Tuyet Mullins MD Attending Provider on DC: Tuyet Mullins MD Discharging Provider: Tuyet Mullins MD Diagnosis Discharge Diagnosis (1) Biliary dyskinesia: Status: Acute Problem List Completed Was Problem List Reviewed/Reconciled?: Yes Exam Vital Signs Temp Pulse Resp BP Pulse Ox 97.4 F 78 18 133/75 H 100 06/28/25 06:40 06/28/25 06:40 06/28/25 06:40 06/28/25 06:40 06/28/25 06:40 Discharge Plan Plan Patient Disposition: HOME (Self Care) Prescriptions/Referrals Prescriptions/Med Rec: New oxycodone-acetaminophen [Percocet] 5-325 mg tablet 1 tab PO Q6H MDD 4 tabs PRN (Reason: pain) Qty: 10 0RF Rx Instructions: Take 1 tablet as needed every 6 hours for moderate to severe pain Referrals: Josse Murphy MD [Primary Care Provider, Family Practice] Tuyet Mullins MD [Physician, General Surgery] Patient/Caregiver Discharge Instructions Other Discharge Activity Instructions:: You may resume showering on 06/30 It is ok to get incisions wet at that time, pat dry after Avoid bathing or swimming for 2 weeks Avoid lifting objects >10lbs for 6 weeks During the surgery we fill your abdomen with air in order to see the structures. Some air lingers and causes pain that is referred to the shoulder as well as pain with deep breaths. This will improve with time. Being out of bed and walking helps the air to absorb faster If you develop worsening pain, nausea/vomiting, fever or signs of jaundice please seek care in ER For any non-urgent concern please call the office during business hours (M-F 8-4pm, excluding 12-1pm for break) at [phone] Education Materials: Anesthesia: General Anesthesia, Surgery Anesthesia After, Cholecystectomy Laparoscopic Dc, Preventing Surgical Site Infections, Skin Adhesive Wound Care Instructions, [facility] General SDC Instructions- Mauritanian Print Language: Mauritanian Stand Alone Forms: Samreen Award Info., Patient Portal Info Letter Discharge Order Discharge Orders: Discharge (Routine); Ordered 06/28/25 Ordered By: Tuyet Mullins Results Results: Laboratory Laboratory results: results reviewed PROCEDURES: Procedure Date 06/28/25 Procedures Laparoscopic cholecystectomy
[2025-06-28] MEDS: METOCLOPRAMIDE INJ 5 MG/ML VIAL 2 ML 10 MG IVP (09:51)
--- NOTE | 2025-06-28 10:18 | SUR.PHASEII ---
1018: Pt. meets discharge criteria. Disconnect pt. from vitals machine, pt. currently waiting for their ride.
--- NOTE | 2025-06-28 10:32 | SUR.PHASEII ---
1032: Pt. AAOx4, vitals stable, breathing unlabored, no complaint of pain or nausea, dressing to ABD CDI, no active bleed noted, pt. tolerated sips of water well, pt. ambulated to wheelchair with steady gait and no assist, no complications. Gave discharge instructions to the pt. and her ride, both verbalized understanding and had no further questions. Pt. left with all personal belongings.
== END 2025-06-28 10:32 | disposition home or self-care (01) ==
PROVIDERS: PCP Family Medicine; Referring Provider Surgery; Visit Provider Surgery
PROC: 0FT44ZZ Resection of Gallbladder, Percutaneous Endoscopic Approach (ICD-10-PCS; CPT 47562; principal; 2025-06-28 07:30)
DX: K81.1 Chronic cholecystitis (principal); K80.20 Calculus of gallbladder without cholecystitis without obstruction; K82.8 Other specified diseases of gallbladder
CPT/HCPCS: 47562; 36415; 80048; 84703; 85025; 85610; 85730; A4217; A4649; J0131; J0694; J1100; J1885; J2371; J2405; J2704; J2710; J2765; J3010; J3490; J7120; J1596

== ENCOUNTER 2025-07-04 10:07 | Emergency (ER) | payer MEDICAID, SELFPAY ==
[2025-07-04 10:18] VITALS: BP 110/76; PULSE 82; RESP 16; TEMP 36.7; O2SAT 99; BMI 28.6
--- NOTE | 2025-07-04 10:25 | PD.EDABDPN ---
ED Abdominal Pain RME/HPI General Chief Complaint: General Adult/Misc Complain Stated complaint: drainage from surgical incision site per pt Time seen by provider: 07/04/25 10:26 Arrival date/time: 07/04/25 10:07 RME / HPI RME / HPI narrative: See [facility] for Dr. Salazar's HPI documentation. Related Data Previous Rx's ?Medication ?Instructions ?Recorded oxycodone-acetaminophen 5 mg-325 1 tab PO Q6H PRN pain #10 tabs 06/28/25 mg tablet (Percocet) ondansetron 4 mg disintegrating 4 mg PO TID PRN nausea and 07/04/25 tablet vomiting 30 days #10 tabs Allergies Allergy/AdvReac Type Severity Reaction Status Date / Time etonogestrel (From [place]) Allergy Headache Verified 07/04/25 10:08 latex Allergy Verified 07/04/25 10:08 shrimp Allergy Verified 07/04/25 10:08 Review of Systems Review of Systems Systems Reviewed: All systems reviewed, normal except as documented Past Medical History Past Medical History NEUROLOGIC: Positive Neurological Disorders and Migraine CARDIAC: Positive Cardiac Disorders (heart murmur), Cardiac Arrhythmia and Heart Murmur RESPIRATORY: Positive Bronchitis GASTROINTESTINAL: Positive Gastrointestinal Disorders, Pancreatitis, Gall Bladder Disease, Colitis, Crohn's Disease, Hiatal Hernia and Obesity GENITOURINARY: Positive Genitourinary Disorders REPRODUCTIVE: Positive Previous Pregnancies HEMATOLOGIC: Positive Blood Disorders and Anemia PSYCHO/SOCIAL: Positive Depression (past), Anxiety (past) and Depression OTHER HISTORY: Positive Hospitalization Family History FAMILY HISTORY: Positive Family Gastrointestinal Problems Social History SMOKING STATUS: Never smoker SECOND HAND EXPOSURE: No SUBSTANCE USE: does not use ED Exam Narrative Physical exam: See [facility] for Dr. Salazar's physical exam documentation. Course Quality Measures none Orders Category Date Time Status CT Screening NOW Care 07/04/25 10:29 Completed Saline [Insert IV] NOW Care 07/04/25 10:[address] abdomen pelvis w con Stat Exams 07/04/25 10:[address] cervical spine wo con Stat Exams 07/04/25 10:[address] head/brain wo con Stat Exams 07/04/25 10:29 Completed Amylase Stat Lab 07/04/25 10:53 Completed Bilirubin,Direct Stat Lab 07/04/25 10:53 Completed Blood Culture (Lab) Stat Lab 07/04/25 11:00 Results CBC Stat Lab 07/04/25 10:53 Completed CMP [Comprehensive Metabolic Panel] Stat Lab 07/04/25 10:53 Completed CRP [C-Reactive Protein] Stat Lab 07/04/25 10:53 Completed ESR [Sed Rate (ESR)] Stat Lab 07/04/25 10:53 Completed HCG,Qualitative Serum Stat Lab 07/04/25 10:53 Completed Lactate (Lactic Acid) Stat Lab 07/04/25 10:53 Completed Lipase Stat Lab 07/04/25 10:53 Completed Magnesium Stat Lab 07/04/25 10:53 Completed Procalcitonin Stat Lab 07/04/25 10:53 Completed TSH [Thyroid Stimulating Hormone] Stat Lab 07/04/25 10:53 Completed Ketorolac Inj [Toradol Inj] Med 07/04/25 10:28 Discontinued 30 mg IVP X1 ONE Morphine* Inj Med 07/04/25 10:28 Discontinued 4 mg IV X1 ONE Ondansetron Inj [Zofran Inj] Med 07/04/25 10:28 Discontinued 4 mg IVP X1 ONE Sodium Chloride 0.9% 1000 ml [Ns] 1,000 ml Med 07/04/25 10:28 Discontinued IV 999 mls/hr Vital Signs Vital signs: Vital Signs Temperature 98.0 F 07/04/25 10:18 Pulse Rate 82 07/04/25 10:18 Respiratory Rate 16 07/04/25 10:18 Blood Pressure 110/76 07/04/25 10:18 Pulse Oximetry (%) 99 07/04/25 10:18 Oxygen Delivery Method Room Air 07/04/25 10:18 Pulse ox is 99% on room air which is adequate. Abdominal Pain MDM MDM Narrative MDM Narrative:: This section includes all my notes and documentations, including HPI, PE, and ED course. Smooth Salazar MD HPI: 30-year-old female here with abdominal pain and yellow drainage from surgical incision. Dr. Mullins performed cholecystectomy here exactly 6 days ago. No obvious fever. Equivocal chills and aches. Has nausea, no vomiting. No diarrhea. Has Crohn's disease. She also reports 3 days of headache and neck pain and right arm numbness and tingling. No other complaints. ROS: All negative except as documented in HPI. Physical Exam: General: Alert and oriented. No acute distress when remaining still. Eyes: Conjunctivae and lids clear. PERRL. EOMI. ENT: No nasal congestion. Neck: Supple. Heart: RRR. Lungs: No respiratory distress. Good air movement. No rhonchi, wheezing, rales. Abdomen: Soft with equivocal tenderness, difficult to localize. Normal bowel sounds. No distension. No rebound or guarding. Back: No CVA tenderness. Skin: Warm and dry. Incision superior to umbilicus with spreading erythema/edema/calor/tenderness. Neuro: Alert and oriented X 3. CN 2-12 grossly normal. No peripheral motor deficits. I reviewed all diagnostic test results: My review of the CT abdomen/pelvis report is colitis. My review of the CT head report is NAD. My review of the cervical spine CT report is no acute findings. Blood tests unremarkable. At this point, diagnoses include: Crohn's disease Superficial incisional infection of surgical site Treatment here included: IVF Zofran 4 mg IV Toradol 30 mg IV Morphine 4 mg IV Significant improvement noted. Recommended a trial of outpatient treatment. Based on my best medical judgment, made decision no further evaluation or treatment indicated at this time. Patient understands and agrees to the discharge instructions customized and printed, see below. Discharge Instructions from Dr. Salazar printed for you: 1. After extensive evaluation, there is no very serious condition. Such as stroke or brain tumor or postsurgical infection or abscess. 2. You have surgical incision infection and start of Crohn's flareup. 3. Take Cipro and Flagyl and prednisone as prescribed. Can discontinue cephalexin prescribed by outside doctor the day before yesterday. 4. For good hydration, increase oral fluid and maintain clear urine. If dark or yellow, increase oral fluid. Zofran for nausea/vomiting. 5. See a private doctor on 07/06/2025 for recheck and further care. Ask for help until you are completely better. Ask to review all test results and official radiology reports, to make sure you receive all necessary follow-ups and monitoring. Ask for more investigation of your several day history of right arm numbness (such as nerve conduction studies and referral to see neurologist). 5. Seek immediate medical care with worsening or with any concerns. Smooth Salazar MD Patient data External records reviewed:: [facility] previous records Clinical information provided by:: patient Social determinants that could affect healthcare access:: none Patient has the following chronic illnesses:: underwent cholecystectomy by Dr. Mullins 6 days ago How is presenting disease/condition affected by chronic disease/condition?: exacerbated by Evaluation data The following diagnostics were reviewed and interpreted by me:: lab results and radiology exam(s) Lab and/or radiology exams considered but not ordered:: None Interpretation Summary: I reviewed all diagnostic test results: My review of the CT abdomen/pelvis report is colitis. My review of the CT head report is NAD. My review of the cervical spine CT report is no acute findings. Blood tests unremarkable. Medications / Prescriptions Medications or Prescriptions considered but not ordered:: None Medication administrations:: Medication Administration History Discontinued Medications Sodium Chloride (Ns) 1,000 mls @ 999 mls/hr IV .Q1H1M ONE Stop: 07/04/25 11:28 Last Infusion: 07/04/25 13:40 Dose: Infused Documented By: Admin: 07/04/25 11:03 Dose: 999 mls/hr Documented By: CARL Ketorolac Tromethamine (Ketorolac Inj 30 Mg/Ml Vial) 30 mg IVP X1 ONE Stop: 07/04/25 10:29 Last Admin: 07/04/25 13:42 Dose: Not Given Documented By: Non-Admin Reason: Patient Refused Morphine Sulfate (Morphine Sulf Inj 4 Mg/Ml Vial) 4 mg IV X1 ONE Stop: 07/04/25 10:29 Last Admin: 07/04/25 13:42 Dose: Not Given Documented By: Non-Admin Reason: Patient Refused Ondansetron HCl (Ondansetron Inj 2 Mg/Ml Inj 2 Ml) 4 mg IVP X1 ONE; Protocol Stop: 07/04/25 10:29 Last Admin: 07/04/25 13:42 Dose: Not Given Documented By: Non-Admin Reason: Patient Refused Treatment here included: IVF Zofran 4 mg IV Toradol 30 mg IV Morphine 4 mg IV Consultations Consultation(s) initiated? (list below): No Diagnosis Differential diagnosis abdominal pain: acute appendicitis, calculus of kidney, constipation, diverticulitis, endometriosis, gastroenteritis, pancreatitis, small bowel obstruction and other (cellulitis, post surgical complication ) Most likely diagnosis given after review of the tests above:: Crohn's disease Superficial incisional infection of surgical site Admission Indicated Admission indicated?: not indicated Explain why admission is indicated or not indicated:: With significant improvement and no condition needing emergent intervention, there was no indication for admission. Admission Request Was there a request for admission?: No Disposition Plan Disposition Plan: Discharge Discharge Attestation Discharge Attestation: The patient and all family members were given an opportunity to ask questions and understood the discharge instructions. Discharge instructions specifically effects, indications for sooner follow up or return to the emergency department, and the expected course of current diagnosis. Patient condition: Stable Discharge Plan Plan Patient Disposition: HOME (Self Care) Prescriptions/Referrals Prescriptions/Med Rec: New ondansetron 4 mg tablet,disintegrating 4 mg PO TID PRN (Reason: nausea and vomiting) 30 Days Qty: 10 0RF No Action oxycodone-acetaminophen [Percocet] 5-325 mg tablet 1 tab PO Q6H MDD 4 tabs PRN (Reason: pain) Qty: 10 0RF Rx Instructions: Take 1 tablet as needed every 6 hours for moderate to severe pain Referrals: Josse Murphy MD [Primary Care Provider, Family Practice] - In 1 week Problem List Clinical Impression: Crohn's colitis, Superficial incisional infection of surgical site Patient/Caregiver Discharge Instructions Discharge Activity: activity as tolerated Education Materials: ED Crohn's Disease, ED Wound Check (Infection), ED Paraesthesias Additional Instructions: Discharge Instructions from Dr. Salazar printed for you: 1. After extensive evaluation, there is no very serious condition. Such as stroke or brain tumor or postsurgical infection or abscess. 2. You have surgical incision infection and start of Crohn's flareup. 3. Take Cipro and Flagyl and prednisone as prescribed. Can discontinue cephalexin prescribed by outside doctor the day before yesterday. 4. For good hydration, increase oral fluid and maintain clear urine. If dark or yellow, increase oral fluid. Zofran for nausea/vomiting. 5. See a private doctor on 07/06/2025 for recheck and further care. Ask for help until you are completely better. Ask to review all test results and official radiology reports, to make sure you receive all necessary follow-ups and monitoring. Ask for more investigation of your several day history of right arm numbness (such as nerve conduction studies and referral to see neurologist). 5. Seek immediate medical care with worsening or with any concerns. Print Language: Romansh Stand Alone Forms: [employer]reen Award Info., Patient Portal Info Letter
--- NOTE | 2025-07-04 10:29 | XR_ITS ---
Examination: CT abdomen with intravenous contrast CT pelvis with intravenous contrast 2-D coronal reconstructions 2-D sagittal reconstructions Date and time of exam: July 04, 2025, 1159 hours, comparison June 20, 2025 INDICATIONS: Severe abdominal pain and drainage after cholecystectomy. CTDI: vol (mGy) 9.50 DLP: (mGycm) 531 Technique: Multiple axial sections of the abdomen and pelvis have been obtained. 64 slice high-resolution scanner used. 3 mm axial sections have been obtained, post intravenous injection 60 cc Isovue 370 2-D sagittal, coronal reconstructions obtained. Low dose protocols were performed. One or more of the following dose reduction techniques were used; automated exposure control, adjustment of the mA and/or KV according to patient size, use of iterative reconstruction technique. Findings: No focal liver or splenic lesions Minimal postop fluid in the gallbladder fossa No gallbladder fossa abscess Spleen is not enlarged No pancreatic or adrenal mass No renal or ureteral calculi No bowel obstruction Aorta normal size 19 mm fat-containing umbilical hernia No pericecal inflammatory change Mild wall thickening involving sigmoid colon and rectum Anteverted uterus No adnexal mass Bladder intact IMPRESSION: Negative for gallbladder fossa abscess Nonspecific colitis of 5 in sigmoid colon and proctitis pattern
--- NOTE | 2025-07-04 10:29 | XR_ITS ---
Examination: CT brain head without contrast. 2-D sagittal coronal reconstructions Date and time of exam: July 04, 2025, 1153 hours, comparison 05/15/2018 INDICATION: Right arm numbness beginning several days ago CTDI: vol (mGy): 51.6 DLP: (mGycm): 987 Technique: Multiple CT axial sections of the brain have been obtained, 5 mm slice thickness. Contrast has not been administered. 2-D sagittal, coronal reconstructions have been obtained Low dose protocols were performed. One or more of the following dose reduction techniques were used; automated exposure control, adjustment of the mA and/or KV according to patient size, use of iterative reconstruction technique. Findings: No significant ventricular enlargement. Intra-axial or extra-axial hemorrhage density is not seen. No mass effect or midline shift Basal cisterns are not remarkable. Fourth ventricle is midline. Cranial vault intact. Impression: Negative for acute hemorrhage, mass effect or midline shift As clinically warranted, brain MRI follow-up would best assess for demyelinating disease
--- NOTE | 2025-07-04 10:30 | XR_ITS ---
Examination: CT cervical spine without contrast 2-D sagittal reconstructions 2-D coronal reconstructions 3-D reconstructions. Exam date and time: July 04, 2025, 11:53 a.m. INDICATIONS: Right arm numbness beginning several days ago CTDI:vol (mGy) 16.7 DLP: (mGycm) 371 Technique: Multiple 2 mm axial sections of the cervical spine have been obtained. The coronal and sagittal reconstructions have been obtained. 3-D reconstructions have been obtained. Low dose protocols were performed. One or more of the following dose reduction techniques were used; automated exposure control, adjustment of the mA and/or KV according to patient size, use of iterative reconstruction technique. Findings: Axial sections demonstrate intact base of the skull. C1 exhibit satisfactory relationship to the odontoid. No acute cervical vertebral body fracture seen. Alignment posterior spinous processes satisfactory. Impression: No acute cervical fracture. No significant acquired spinal stenosis
--- NOTE | 2025-07-04 10:46 | PC.NURSE ---
Patient from lobby and taken to room 18 with c/o mid abd. pain from surgical site on 06/28, patient had cholecytectomy. small amt of yellowish drainaige noted, new orders received.
[2025-07-04 11:00] LABS: Lactate (Lactic Acid) 1.3 mMol/L (0.4-2.0)
[2025-07-04 11:01] LABS: Basophils # (Auto) 0.1 Thou/mm3 (0.0-0.2); Basophils % (Auto) 1 % (0-2.5); Eosinophils # (Auto) 0.1 Thou/mm3 (0.0-0.5); Eosinophils % (Auto) 2 % (0-10); Hematocrit 38.3 % (36.0-46.0); Hemoglobin 13.2 g/dL (12.0-16.0); Immature Granulocytes Auto 0.00 Thou/mm3 (0.00-0.00); Lymphocytes # (Auto) 0.8 Thou/mm3 (1.0-4.8); Lymphocytes % (Auto) 16 % (10-50); Mean Corpuscular HGB Conc 34.5 g/dl (31.0-37.0); Mean Corpuscular Hemoglobin 29.9 pg (25.0-35.0); Mean Corpuscular Volume 87 fL (80-100); Monocytes # (Auto) 0.6 Thou/mm3 (0.0-0.8); Monocytes % (Auto) 12 % (0-12); Neutrophils # (Auto) 3.6 Thou/mm3 (1.8-7.7); Neutrophils % (Auto) 70 % (37-80); Nucleated Red Blood Cell # 0.00 Thou/mm3 (0.00-0.00); Nucleated Red Blood Cell % 0 /100 WBC (0); Platelet Count 254 Thou/mm3 (140-440); RDW Standard Deviation 38.5 fL (36.4-46.3); Red Blood Count 4.41 Miln/mm3 (4.00-5.20); White Blood Count 5.2 Thou/mm3 (3.6-11.0)
[2025-07-04] MEDS: SODIUM CHLORIDE 0.9% 1000 ML 1,000 ML 999 ML IV (11:03)
[2025-07-04 11:06] VITALS: BP 112/78; PULSE 76; RESP 16; TEMP 36.7; O2SAT 97
[2025-07-04 11:26] LABS: HCG,Qualitative Serum Negative
[2025-07-04 11:44] LABS: Alanine Aminotransferase 24 U/L (10-49); Albumin, Serum 4.9 gm/dL (3.5-5.0); Albumin/Globulin Ratio 2.3 (1.2-2.2); Alkaline Phosphatase 51 U/L (46-116); Amylase 100 U/L (30-118); Anion Gap 9 (7-16); Aspartate Amino Transferase 19 U/L (0-34); BUN/Creatinine Ratio 11 Ratio (12-20); Bilirubin,Direct 0.3 mg/dL (0.0-0.3); Bilirubin,Total 0.8 mg/dL (0.3-1.2); Blood Urea Nitrogen 9 mg/dL (9-23); C-Reactive Protein < 0.5 mg/dL (0.0-0.9); Calcium 9.6 mg/dL (8.3-10.6); Calcium (Corrected) 9.6 mg/dL (8.5-10.1); Carbon Dioxide 27.0 mMol/L (20.0-31.0); Chloride 103 mMol/L (98-107); Creatinine (Component) 0.8 mg/dL (0.6-1.3); Estimated Creatinine Clearance 101.5 mL/min (>60); Globulin 2.1 gm/dL (2.3-3.5); Glucose 118 mg/dL (74-106); Lipase 261 U/L (12-53); Magnesium 2.0 mg/dL (1.6-2.6); Osmolality,Calculated 277 (275-295); Potassium 4.2 mMol/L (3.4-5.1); Procalcitonin < 0.04 ng/ml (0.0-0.49); Sodium 139 mMol/L (136-145); Thyroid Stimulating Hormone 0.81 uIU/mL (0.55-4.78); Total Protein 7.0 gm/dL (5.7-8.2); eGFR > 60 See Note
[2025-07-04 12:45] LABS: Sed Rate (ESR) 11 mm/hr (0-20)
[2025-07-04 13:49] VITALS: BP 112/59; PULSE 72; RESP 17; TEMP 36.4; O2SAT 100
== END 2025-07-04 13:53 | disposition home or self-care (01) ==
PROVIDERS: Emergency Provider Emergency Medicine; PCP Family Medicine
DX: T81.41XA Infection following a procedure, superficial incisional surgical site, initial encounter (principal); K50.10 Crohn's disease of large intestine without complications
CPT/HCPCS: 36415; 70450; 72125; 74177; 80053; 81001; 82150; 82248; 83605; 83690; 83735; 84145; 84443; 84703; 85025; 85652; 86140; 87040; 96360; 96361; 99283; A4649; J7030; Q9967

== ENCOUNTER 2025-07-10 09:41 | Outpatient (AMB) | payer MEDICAID, SELFPAY ==
[2025-07-10 10:07] VITALS: BP 114/75; PULSE 78; RESP 18; TEMP 36.5; O2SAT 98; BMI 28.8
--- NOTE | 2025-07-10 10:07 | GSCOFFNT_ITS ---
Vital Signs - [facility] 07/10/25 10:07 Height 1.63 m Height Method Stated Weight 76.402 kg Weight Measurement Method Standing Scale BMI 28.8 BP 114/75 Blood Pressure Source Automatic Cuff Blood Pressure Location Left Upper Arm Position Sitting Respiration 18 Pulse 78 Pulse Source Monitor Temp 97.7 F Temp Source Temporal Artery Scan Pulse Oximetry (%) 98 Oxygen Delivery Method Room Air Med/Allergies Allergies & Medications Allergies etonogestrel (From [facility]) Allergy (Verified 07/10/25 10:08) Headache latex Allergy (Verified 07/10/25 10:08) shrimp Allergy (Verified 07/10/25 10:08) Medication Reconciliation oxycodone-acetaminophen 5 mg-325 mg tablet (Percocet) 1 tab PO Q6H PRN pain #10 tabs 06/28/25 [Rx Confirmed 07/10/25] ondansetron 4 mg disintegrating tablet 4 mg PO TID PRN nausea and vomiting 30 days #10 tabs 07/04/25 [Rx Confirmed 07/10/25] MA Intake Visit Data Collection New Patient or Established: Established Patient (seen at [facility] within 3 years) Seen by Clinical Staff ONLY (RN/MA): No Reason for Visit:: PRE OP LAB CBOLE Pain Present Currently: Yes (COMES AND GOES) Pain Location: Abdomen Pain scale:: 6 Pain Scale Used: [place]/Numerical Benefits Assistant Required: No PCP or OBGYN visit in last 3 months: Yes Hx Now: No Do You Feel Safe at Home: Yes Authorities Contacted: N/A Smoking Status Smoking Status: Never smoker Immunization / Flu Flu Vaccine in the Last 12 Months: No Flu Vaccine Exclusion Criteria: Refused by Patient Past Medical History Past Medical History NEUROLOGIC: Positive Neurological Disorders and Migraine; Negative Cerebrovascular Accident, Transient Ischemic Attacks (TIA), Dementia, Alzheimer's Disease, Seizures, Epilepsy, Multiple Sclerosis or Cerebral Palsy CARDIAC: Positive Cardiac Disorders (heart murmur), Cardiac Arrhythmia and Heart Murmur; Negative Myocardial Infarction or Congestive Heart Failure RESPIRATORY: Positive Bronchitis; Negative Chronic Obstructive Pulmonary Disease (COPD), Asthma, Emphysema, Pneumonia or Pulmonary Fibrosis GASTROINTESTINAL: Positive Gastrointestinal Disorders, Pancreatitis, Gall Bladder Disease, Colitis, Crohn's Disease, Hiatal Hernia and Obesity; Negative Liver Cancer, Hepatitis, Gastrointestinal Bleed, Esophageal Varices, Cruz's Esophagus, Colorectal Cancer or Irritable Bowel GENITOURINARY: Positive Genitourinary Disorders; Negative Renal Disease or Prostate Cancer REPRODUCTIVE: Positive Previous Pregnancies; Negative Breast Cancer, Endometriosis, Pelvic Inflammatory Disease, Testicular Cancer or Uterine Prolapse MUSCULOSKELETAL: Negative Bone Cancer ENDOCRINE: Negative Endocrine Disorders, Diabetes Mellitus Type 1 or Diabetes Mellitus Type 2 HEMATOLOGIC: Positive Blood Disorders and Anemia; Negative Sickle Cell Disease PSYCHO/SOCIAL: Positive Depression (past), Anxiety (past) and Depression OTHER HISTORY: Positive Hospitalization; Negative Down Syndrome, Developmental Delay, Shingles, Falls, Blood Transfusions, Blood Transfusion Reaction (n/a), Anesthesia Reactions, Organ Transplant, Chemotherapy, Radiation Therapy, Hyperbaric Therapy, MRSA, VRSA, Vancomycin-Resistant Enterococci, Human Immunodeficiency Virus (HIV), Chicken Pox, Measles, Mumps, Rubella (Bel[place]ian Measles), Pertussis, Clostridium Difficile, Cancer, Breast Cancer, Cervical Cancer, Colorectal Cancer, Lung Cancer, Ovarian Cancer, Prostate Cancer or Testicular Cancer Family History FAMILY HISTORY: Positive Family Gastrointestinal Problems; Negative Family Psychiatric Problems, Family Respiratory Disorders, Family Cardiac Disorders, Family Cancer, Family Surgery or Family Anesthesia Reaction Surgical History SURGICAL: Negative Abdominal Surgery, Nephrectomy, Joint Replacement, Section or Organ Transplant Social History SMOKING STATUS: Smoking status: Never smoker SECOND HAND EXPOSURE: second hand exposure: No ALCOHOL: Alcohol Intake: Current ALCOHOL FREQUENCY: Alcohol Intake Frequency: A Few Times a Month HOUSING: Housing: Apartment LIVES WITH: Lives With: Family HPI HPI Narrative 30F s/p angélica del cid 06/28 for biliary dyskinesia here for planned follow up. On postop day 1 patient was concerned that her epigastric incision appeared infected, I saw picture and it looked healthy at that time however she did get antibiotics from her PCP. Because she was still concerned about the incision last week she went to the ER with findings of normal labs and normal CT, I saw her at that time and again there were no signs of any wound infection. Today patient reports feeling well overall, her pain is controlled although she does h ave back pain, and she denies any nausea, fever or diarrhea. She is eating well and having regular bowel movements ROS Review of Systems Systems Reviewed: All systems reviewed, normal except as documented Constitutional Constitutional: Reports system reviewed and no additional complaints, except as documented Objective/Exam General General Appearance: alert, cooperative and well groomed Resp Respiratory exam: Absent respiratory distress Abdominal Abdominal exam: Present soft and incision (c/d/i, no erythema, no fluctuance or tenderness); Absent distention or tenderness Results HIDA, MRCP reviewed Assessment & Plan Diagnosis / Problem List (1) Biliary dyskinesia: Status: Acute Assessment & Plan: 30F status post lap maria eugenia for biliary dyskinesia, recovering well overall Plan: Patient understands she should avoid strenuous activity for 6 weeks postop Follow-up as needed Office Procedures GNS Level of Care Nursing/Assessment Patient Status: Established Patient Nursing Assessment/Reassesment: Medication Reconciliation, Update PMH in EMR and Vital Signs Coordination of Care: Complex Care and Chronic Disease 1-5, Consent,records obtained, informed consent, Education Simp Pt/Fam, Results/Orders obtained and Staff clarify orders Established Patient Charge Established Patient Point Assignment: 90 Established Patient Point Charge: EP Level 3 (80-115) Patient Portal Questionaires Social History Living Situation History Lives With: Family Housing: Apartment Tobacco History Smoking Status: Never smoker Second Hand Smoke Exposure: No Alcohol History Alcohol Intake: Current Alcohol Intake Frequency: A Few Times a Month Domestic Abuse History Do You Feel Safe at Home: Yes Review of Systems Report any current symptoms Only answer those that you have currently: Past Medical History Past Medical History Have you ever been diagnosed with any of the following: Neurological Problems Cerebrovascular Accident (CVA): No Transient Ischemic Attacks (TIA): No Dementia: No Alzheimer's Disease: No Seizures: No Epilepsy: No Multiple Sclerosis: No Cerebral Palsy: No Migraine: Yes Cardiology Problems Myocardial Infarction: No Cardiac Arrhythmia: Yes Heart Murmur: Yes Congestive Heart Failure: No Respiratory Problems Chronic Obstructive Pulmonary Disease (COPD): No Asthma: No Bronchitis: Yes Emphysema: No Pneumonia: No Pulmonary Fibrosis: No Stomache/Intestinal Problems Liver Cancer: No Hepatitis: No Pancreatitis: Yes Gall Bladder Disease: Yes Gastrointestinal Bleed: No Esophageal Varices: No Cruz's Esophagus: No Colitis: Yes Colorectal Cancer: No Irritable Bowel: No Crohn's Disease: Yes Hiatal Hernia: Yes Obesity: Yes Genital/Urinary Problems Renal Disease: No Reproductive Problems Breast Cancer: No Endometriosis: No Pelvic Inflammatory Disease: No Previous Pregnancies: Yes Uterine Prolapse: No Musculoskeletal Problems Bone Cancer: No Endocrine Problems Diabetes Mellitus Type 1: No Diabetes Mellitus Type 2: No Blood Problems Anemia: Yes Sickle Cell Disease: No Psychologic Problems Depression: Yes (past) Anxiety: Yes (past) Depression: Yes Other Problems Hospitalization: Yes Down Syndrome: No Developmental Delay: No Shingles: No Falls: No Blood Transfusions: No Blood Transfusion Reaction: No (n/a) Anesthesia Reactions: No Organ Transplant: No Chemotherapy: No Radiation Therapy: No Hyperbaric Therapy: No MRSA: No VRSA: No Vancomycin-Resistant Enterococci: No Human Immunodeficiency Virus (HIV): No Chicken Pox: No Measles: No Mumps: No Rubella (Bel[place]ian Measles): No Pertussis: No Clostridium Difficile: No Cancer: No Cervical Cancer: No Lung Cancer: No Ovarian Cancer: No
== END 2025-07-10 10:10 | disposition home or self-care (01) ==
LOC: HODSRG 09:41
PROVIDERS: Supervising Provider Surgery; Visit Provider Surgery
DX: K82.8 Other specified diseases of gallbladder (principal)
CPT/HCPCS: 99213; G0463

== ENCOUNTER 2025-07-25 11:08 | Outpatient (AMB) | payer MEDICAID, SELFPAY ==
[2025-07-25 11:15] VITALS: BP 121/80; PULSE 79; RESP 16; TEMP 36.7; O2SAT 98; BMI 28.9
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
== END 2025-07-25 11:29 | disposition home or self-care (01) ==
LOC: HODSOBC 11:08
PROVIDERS: Supervising Provider Obstetrics & Gynecology; Visit Provider Obstetrics & Gynecology
DX: N83.209 Unspecified ovarian cyst, unspecified side (principal); N93.9 Abnormal uterine and vaginal bleeding, unspecified; N80.9 Endometriosis, unspecified; Z90.49 Acquired absence of other specified parts of digestive tract; Z91.040 Latex allergy status; Z88.8 Allergy status to other drugs, medicaments and biological substances; Z91.013 Allergy to seafood
CPT/HCPCS: 99214; G0463

== ENCOUNTER → 2025-07-31 | Outpatient (CLI) | payer MEDICAID, SELFPAY ==
--- NOTE | 2025-07-31 11:07 | XR_ITS ---
Examination: Pelvic ultrasound, transabdominal, complete Technique: Transabdominal ultrasound of the pelvis performed using grayscale imaging Date and time of exam: July 31, 2025, 1117 hours INDICATIONS: Vaginal bleeding 1 year, history left ovarian cystic disease. FINDINGS: Uterus 8.3 cm no uterine mass or intrauterine gestation Endometrial stripe 0.6 cm Right ovary 2.5 cm arterial flow Left ovary 3.2 cm arterial flow, 15 x 18 x 19 mm simple cyst IMPRESSION: Left ovarian simple cyst 15 x 18 x 19 mm
--- NOTE | 2025-07-31 11:07 | XR_ITS ---
Examination: Transvaginal ultrasound of the pelvis, complete Technique: Transvaginal sonographic images pelvis performed using haq scale imaging Exam date and time: July 31, 2025, 1128 hours INDICATIONS: Abnormal vaginal bleeding beginning 1 year ago FINDINGS: The uterus 9.2 cm no uterine mass or intrauterine gestation Endometrial stripe 0.6 cm Right ovary 3.3 cm arterial flow Left ovary 3.2 cm arterial flow, 21 x 15 x 22 mm simple left ovarian cyst IMPRESSION: Left ovarian 21 x 15 x 22 mm simple ovarian cyst.
== END | disposition home or self-care (01) ==
PROVIDERS: PCP Family Medicine; Referring Provider Obstetrics & Gynecology; Visit Provider Obstetrics & Gynecology
DX: N83.292 Other ovarian cyst, left side (principal)
CPT/HCPCS: 76830; 76856